=== PATIENT | female | born 1945 | race Hispanic/Latino ===

== ENCOUNTER 2017-10-25 16:15 | Emergency (ER) | payer OTHER ==
[2017-10-25] MEDS ORDERED: METOPROLOL TARTRATE 1 MG/ML 5ML VIAL IV ONE (16:42)
[2017-10-25 16:45] LABS: BASOPHILS % (AUTO) 0.5 % (0.0-5.0); EOSINOPHILS % (AUTO) 1.2 % (0.0-8.0); LYMPHOCYTES % (AUTO) 46.2 % (21.0-51.0); MEAN CORPUSCULAR HEMOGLOBIN 30.3 pg (27.0-33.0); MEAN CORPUSCULAR HGB CONC 33.7 g/dL (32.0-36.0); MEAN CORPUSCULAR VOLUME 89.9 fL (79-99); NEUTROPHILS % (AUTO) 44.1 % (40.0-77.0); PLATELET COUNT (AUTO) 219 K/uL (130-400); RED BLOOD CELL COUNT(AUTO) 4.45 MIL/uL (4.00-5.50); RED CELL DISTRIBUTION WIDTH 13.4 % (11.0-15.5); WHITE BLOOD COUNT (AUTO) 9.3 K/uL (4.8-10.8)
[2017-10-25 16:59] LABS: CREATININE 0.9 mg/dL (0.5-1.5); POTASSIUM 4.2 mmol/L (3.5-5.1)
[2017-10-25 17:00] LABS: INR 0.96 (0.85-1.15); PARTIAL THROMBOPLASTIN TIME 26.6 SEC (26.3-35.5); PROTHROMBIN TIME 10.1 SEC (9.6-11.6)
[2017-10-25 17:03] LABS: ALBUMIN 3.9 g/dL (3.5-5.0); BILIRUBIN,TOTAL 0.4 mg/dL (0.2-1.0); TOTAL PROTEIN, SERUM 7.6 g/dL (6.0-8.3)
[2017-10-25 18:29] LABS: APPEARANCE,URINE Clear (CLEAR); BILIRUBIN,URINE Negative (NEGATIVE); COLOR,URINE Yellow (YELLOW); GLUCOSE, URINE (UA) Negative (NEGATIVE); KETONES,URINE Negative (NEGATIVE); LEUKOCYTE ESTERASE ,URINE Small (NEGATIVE); NITRATE,URINE Negative (NEGATIVE); OCCULT BLOOD,URINE Negative (NEGATIVE); PROTEIN,URINE Negative (NEGATIVE); UROBILINOGEN,URINE 0.2 mg/dL (0.2-1.0)
[2017-10-25] MEDS ORDERED: SODIUM CHLORIDE 0.9% 500ML 500 ML IV ONE (18:29)
[2017-10-25 18:32] LABS: THYROID STIMULATING HORMONE 1.44 uIU/mL (0.36-3.74)
[2017-10-25 19:09] LABS: BACTERIA,URINE Rare /HPF (None Seen); RBC,URINE None Seen /HPF (0-1); SQUAMOUS EPITHELIAL CELL,UR 0-2 /HPF (0-2); WBC,URINE 0-1 /HPF (0-1)
== END 2017-10-25 19:19 | disposition home or self-care (01) ==
LOC: EDH 16:15
DX: R53.1 Weakness (principal); I10 Essential (primary) hypertension; E11.9 Type 2 diabetes mellitus without complications; E78.5 Hyperlipidemia, unspecified; Z88.2 Allergy status to sulfonamides; Z88.5 Allergy status to narcotic agent; Z98.890 Other specified postprocedural states
CPT/HCPCS: 36415; 71045; 80053; 81001; 82550; 84439; 84443; 84484; 85025; 85610; 85730; 93005; 96374; 99285; J3490; J7040

== ENCOUNTER 2017-11-05 04:30 | Emergency (ER) | payer OTHER ==
[2017-11-05] MEDS ORDERED: ONDANSETRON HCL 4 MG/2 ML VIAL ONE (06:09)
[2017-11-05] MEDS ORDERED: MORPHINE SULFATE 4 MG/1ML SYG ONE (06:10)
[2017-11-05 06:44] LABS: BASOPHILS % (AUTO) 0.5 % (0.0-5.0); EOSINOPHILS % (AUTO) 1.4 % (0.0-8.0); HEMATOCRIT 40.9 % (36-48); LYMPHOCYTES % (AUTO) 46.2 % (21.0-51.0); MEAN CORPUSCULAR HEMOGLOBIN 30.5 pg (27.0-33.0); MEAN CORPUSCULAR HGB CONC 33.6 g/dL (32.0-36.0); MEAN CORPUSCULAR VOLUME 90.9 fL (79-99); MONOCYTES % (AUTO) 8.9 % (3.0-13.0); PLATELET COUNT (AUTO) 208 K/uL (130-400); RED CELL DISTRIBUTION WIDTH 13.9 % (11.0-15.5)
[2017-11-05 06:57] LABS: CREATININE 0.7 mg/dL (0.5-1.5)
[2017-11-05 06:58] LABS: INR 0.9 (0.85-1.15); PARTIAL THROMBOPLASTIN TIME 25.4 SEC (26.3-35.5); PROTHROMBIN TIME 9.5 SEC (9.6-11.6)
[2017-11-05 07:04] LABS: ALBUMIN 3.2 g/dL (3.5-5.0); BILIRUBIN,TOTAL 0.4 mg/dL (0.2-1.0); TOTAL PROTEIN, SERUM 7.3 g/dL (6.0-8.3)
[2017-11-05] MEDS ORDERED: SODIUM CHLORIDE 0.9% 1000ML 3,000 ML IV ONE (07:16)
[2017-11-05 07:32] LABS: APPEARANCE,URINE Clear (CLEAR); BILIRUBIN,URINE Negative (NEGATIVE); COLOR,URINE Yellow (YELLOW); GLUCOSE, URINE (UA) Negative (NEGATIVE); KETONES,URINE Negative (NEGATIVE); LEUKOCYTE ESTERASE ,URINE Trace (NEGATIVE); NITRATE,URINE Negative (NEGATIVE); OCCULT BLOOD,URINE Negative (NEGATIVE); PH,URINE 5.5 (5.0-8.0); PROTEIN,URINE Negative (NEGATIVE); UROBILINOGEN,URINE 0.2 mg/dL (0.2-1.0)
[2017-11-05 08:10] LABS: BACTERIA,URINE Rare /HPF (None Seen); RBC,URINE 0-1 /HPF (0-1); SQUAMOUS EPITHELIAL CELL,UR Rare /HPF (0-2); WBC,URINE 0-1 /HPF (0-1)
== END 2017-11-05 09:07 | disposition home or self-care (01) ==
LOC: EDH 04:30
DX: M79.1 Myalgia (principal); R53.81 Other malaise; R53.83 Other fatigue; I10 Essential (primary) hypertension; E78.5 Hyperlipidemia, unspecified; E11.9 Type 2 diabetes mellitus without complications; R79.1 Abnormal coagulation profile; Z88.2 Allergy status to sulfonamides; Z88.6 Allergy status to analgesic agent; Z88.1 Allergy status to other antibiotic agents; Z98.890 Other specified postprocedural states
CPT/HCPCS: 36415; 71045; 80053; 81001; 82550; 83605; 83690; 84484; 85025; 85610; 85730; 93005; 96374; 96375; 99285; J2270; J2405; J7030

== ENCOUNTER → 2017-11-15 | Outpatient (CLI) | payer OTHER | END | disposition home or self-care (01) | LOC: RAH 07:42 | PROVIDERS: ATTEND Family Medicine | DX: M47.896 Other spondylosis, lumbar region (principal); M47.892 Other spondylosis, cervical region; M47.894 Other spondylosis, thoracic region; M48.07 Spinal stenosis, lumbosacral region; M25.78 Osteophyte, vertebrae; I70.0 Atherosclerosis of aorta; G89.29 Other chronic pain; R10.11 Right upper quadrant pain | CPT/HCPCS: 72040; 72072; 72100; 76700 ==

== ENCOUNTER → 2018-03-13 | Outpatient (CLI) | payer OTHER | END | disposition home or self-care (01) | LOC: RAH 07:38 | PROVIDERS: ATTEND Family Medicine | DX: M51.17 Intervertebral disc disorders with radiculopathy, lumbosacral region (principal); M48.061 Spinal stenosis, lumbar region without neurogenic claudication; M47.26 Other spondylosis with radiculopathy, lumbar region; M71.38 Other bursal cyst, other site | CPT/HCPCS: 72146; 72148 ==

== ENCOUNTER 2018-04-21 04:43 | Emergency (ER) | payer OTHER ==
[2018-04-21 05:15] LABS: BASOPHILS % (AUTO) 0.7 % (0.0-5.0); EOSINOPHILS % (AUTO) 1.1 % (0.0-8.0); HEMATOCRIT 38.4 % (36-48); LYMPHOCYTES % (AUTO) 48.6 % (21.0-51.0); MEAN CORPUSCULAR HGB CONC 33.6 g/dL (32.0-36.0); MEAN CORPUSCULAR VOLUME 92.4 fL (79-99); MONOCYTES % (AUTO) 8.2 % (3.0-13.0); NEUTROPHILS % (AUTO) 41.4 % (40.0-77.0); PLATELET COUNT (AUTO) 195 K/uL (130-400); RED BLOOD CELL COUNT(AUTO) 4.15 MIL/uL (4.00-5.50); RED CELL DISTRIBUTION WIDTH 13.5 % (11.0-15.5); WHITE BLOOD COUNT (AUTO) 9.5 K/uL (4.8-10.8)
[2018-04-21 05:20] LABS: CREATININE 0.8 mg/dL (0.5-1.5); POTASSIUM 4.3 mmol/L (3.5-5.1)
[2018-04-21 05:25] LABS: INR 0.93 (0.85-1.15); PARTIAL THROMBOPLASTIN TIME 27.7 SEC (26.3-35.5); PROTHROMBIN TIME 9.8 SEC (9.6-11.6)
[2018-04-21 05:30] LABS: ALBUMIN 3.2 g/dL (3.5-5.0); BILIRUBIN,TOTAL 0.4 mg/dL (0.2-1.0); TOTAL PROTEIN, SERUM 6.9 g/dL (6.0-8.3)
[2018-04-21] MEDS ORDERED: KETOROLAC TROMETHAMINE 15MG/ML ONE (05:47)
== END 2018-04-21 06:31 | disposition home or self-care (01) ==
LOC: EDH 04:43
DX: R07.89 Other chest pain (principal); M62.838 Other muscle spasm; M54.5 Low back pain; M54.6 Pain in thoracic spine; I10 Essential (primary) hypertension; E78.5 Hyperlipidemia, unspecified; E11.9 Type 2 diabetes mellitus without complications; G89.29 Other chronic pain; Z88.6 Allergy status to analgesic agent; Z88.1 Allergy status to other antibiotic agents; Z88.2 Allergy status to sulfonamides; Z79.899 Other long term (current) drug therapy; Z98.890 Other specified postprocedural states
CPT/HCPCS: 36415; 71045; 80053; 82550; 83874; 84484; 85025; 85610; 85730; 93005; 94761; 96374; 99284; J1885

== ENCOUNTER → 2018-05-29 | Outpatient (CLI) | payer OTHER | END | disposition home or self-care (01) | LOC: RAH 07:47 | PROVIDERS: ATTEND Family Medicine | DX: Z12.31 Encounter for screening mammogram for malignant neoplasm of breast (principal) | CPT/HCPCS: 77067 ==

== ENCOUNTER → 2019-01-02 | Outpatient (CLI) | payer OTHER | END | disposition home or self-care (01) | LOC: OIH 10:11 | PROVIDERS: ATTEND Family Medicine | DX: M19.012 Primary osteoarthritis, left shoulder (principal); M16.11 Unilateral primary osteoarthritis, right hip; M89.8X5 Other specified disorders of bone, thigh; Z98.890 Other specified postprocedural states | CPT/HCPCS: 73030; 73502; 73552 ==

== ENCOUNTER 2019-02-02 10:00 | Emergency (ER) | payer OTHER ==
[2019-02-02 10:20] LABS: BASOPHILS % (AUTO) 0.4 % (0.0-5.0); EOSINOPHILS % (AUTO) 1.6 % (0.0-8.0); HEMATOCRIT 39.3 % (36-48); LYMPHOCYTES % (AUTO) 51.8 % (21.0-51.0); MEAN CORPUSCULAR HEMOGLOBIN 30.3 pg (27.0-33.0); MEAN CORPUSCULAR HGB CONC 33.6 g/dL (32.0-36.0); MEAN CORPUSCULAR VOLUME 90.4 fL (79-99); MONOCYTES % (AUTO) 7.9 % (3.0-13.0); NEUTROPHILS % (AUTO) 38.3 % (40.0-77.0); PLATELET COUNT (AUTO) 177 K/uL (130-400); RED BLOOD CELL COUNT(AUTO) 4.35 MIL/uL (4.00-5.50); RED CELL DISTRIBUTION WIDTH 14.1 % (11.0-15.5); WHITE BLOOD COUNT (AUTO) 7.9 K/uL (4.8-10.8)
[2019-02-02 10:26] LABS: CREATININE 0.9 mg/dL (0.5-1.5); POTASSIUM 4.3 mmol/L (3.5-5.1)
[2019-02-02 10:31] LABS: ALBUMIN 3.3 g/dL (3.5-5.0); BILIRUBIN,TOTAL 0.6 mg/dL (0.2-1.0); TOTAL PROTEIN, SERUM 7.2 g/dL (6.0-8.3)
[2019-02-02 10:33] LABS: INR 1.02 (0.85-1.15); PARTIAL THROMBOPLASTIN TIME 29.9 SEC (26.3-35.5); PROTHROMBIN TIME 10.7 SEC (9.6-11.6)
[2019-02-02] MEDS ORDERED: KETOROLAC TROMETHAMINE 15MG/ML ONE (10:40)
[2019-02-02] MEDS ORDERED: ORPHENADRINE CITRATE 30 MG/ML ML ONE (10:40)
== END 2019-02-02 13:50 | disposition home or self-care (01) ==
LOC: EDH 10:00
DX: M62.838 Other muscle spasm (principal); R07.89 Other chest pain; I10 Essential (primary) hypertension; E11.9 Type 2 diabetes mellitus without complications; E78.5 Hyperlipidemia, unspecified; G89.29 Other chronic pain; Z88.2 Allergy status to sulfonamides; Z88.1 Allergy status to other antibiotic agents; Z88.5 Allergy status to narcotic agent
CPT/HCPCS: 36415; 71045; 80053; 82550; 84484 ×2; 85025; 85610; 85730; 93005 ×2; 96374; 96375; 99285; J1885; J2360

== ENCOUNTER 2019-07-11 07:41 | Emergency (ER) | payer OTHER ==
[2019-07-11] MEDS ORDERED: KETOROLAC TROMETHAMINE 30MG/ML ONE (08:33)
[2019-07-11] MEDS ORDERED: DIAZEPAM 5 MG TABLET ONE (08:33)
== END 2019-07-11 09:27 | disposition home or self-care (01) ==
LOC: EDH 07:41
DX: G57.91 Unspecified mononeuropathy of right lower limb (principal); G89.29 Other chronic pain; E11.9 Type 2 diabetes mellitus without complications; E78.5 Hyperlipidemia, unspecified; I10 Essential (primary) hypertension; Z88.6 Allergy status to analgesic agent; Z88.2 Allergy status to sulfonamides; Z88.1 Allergy status to other antibiotic agents
CPT/HCPCS: 73502; 96372; 99283; J1885

== ENCOUNTER → 2019-08-16 | Outpatient (CLI) | payer OTHER ==
[~2019-08-16] MED LIST: GADODIAMIDE 10 MMOL/20 ML VIAL IV ONE
== END | disposition home or self-care (01) ==
LOC: RAH 12:26
PROVIDERS: ATTEND Family Medicine
DX: M25.551 Pain in right hip (principal); M79.651 Pain in right thigh
CPT/HCPCS: 73720; A9579

== ENCOUNTER → 2019-10-23 | Outpatient (CLI) | payer OTHER | END | disposition home or self-care (01) | LOC: OIH 08:28 | PROVIDERS: ATTEND Family Medicine | DX: M47.817 Spondylosis without myelopathy or radiculopathy, lumbosacral region (principal); M48.07 Spinal stenosis, lumbosacral region | CPT/HCPCS: 72100 ==

== ENCOUNTER 2019-12-23 02:35 | Emergency (ER) | payer OTHER ==
[2019-12-23 03:09] LABS: BASOPHILS % (AUTO) 0.3 % (0.0-5.0); LYMPHOCYTES % (AUTO) 43.7 % (21.0-51.0); MEAN CORPUSCULAR HEMOGLOBIN 30.5 pg (27.0-33.0); MEAN CORPUSCULAR HGB CONC 33.7 g/dL (32.0-36.0); MEAN CORPUSCULAR VOLUME 90.7 fL (79-99); MONOCYTES % (AUTO) 8.6 % (3.0-13.0); NEUTROPHILS % (AUTO) 46.1 % (40.0-77.0); PLATELET COUNT (AUTO) 186 K/uL (130-400); RED BLOOD CELL COUNT(AUTO) 4.19 MIL/uL (4.00-5.50); RED CELL DISTRIBUTION WIDTH 12.5 % (11.0-15.5); WHITE BLOOD COUNT (AUTO) 9.3 K/uL (4.8-10.8)
[2019-12-23 03:22] LABS: CREATININE 0.9 mg/dL (0.5-1.5); POTASSIUM 3.4 mmol/L (3.5-5.1)
[2019-12-23 03:26] LABS: ALBUMIN 3.6 g/dL (3.5-5.0); BILIRUBIN,TOTAL 0.9 mg/dL (0.2-1.0); TOTAL PROTEIN, SERUM 7.4 g/dL (6.0-8.3)
[2019-12-23 03:48] LABS: INR 0.96 (0.85-1.15); PARTIAL THROMBOPLASTIN TIME 28.5 SEC (26.3-35.5); PROTHROMBIN TIME 10.4 SEC (9.6-11.6)
== END 2019-12-23 04:28 | disposition home or self-care (01) ==
LOC: EDH 02:35
DX: E87.6 Hypokalemia (principal); I10 Essential (primary) hypertension; G89.29 Other chronic pain; M54.9 Dorsalgia, unspecified; E11.9 Type 2 diabetes mellitus without complications; E78.5 Hyperlipidemia, unspecified; Z88.2 Allergy status to sulfonamides; Z88.1 Allergy status to other antibiotic agents; Z88.6 Allergy status to analgesic agent; Z98.890 Other specified postprocedural states
CPT/HCPCS: 36415; 80053; 82550; 84484; 85025; 85610; 85730; 93005

== ENCOUNTER → 2020-02-09 | Outpatient (CLI) | payer OTHER | END | disposition home or self-care (01) | LOC: RAH 10:59 | PROVIDERS: ATTEND Family Medicine | DX: R22.1 Localized swelling, mass and lump, neck (principal) | CPT/HCPCS: 76536 ==

== ENCOUNTER 2020-08-04 04:01 | Emergency (ER) | payer OTHER ==
[2020-08-04] MEDS ORDERED: KETOROLAC TROMETHAMINE 30MG/ML ONE (05:35)
[2020-08-04] MEDS ORDERED: TRAMADOL HCL 50 MG TABLET ONE (05:36)
== END 2020-08-04 07:08 | disposition home or self-care (01) ==
LOC: EDH 04:01
DX: M54.12 Radiculopathy, cervical region (principal); I10 Essential (primary) hypertension; E11.9 Type 2 diabetes mellitus without complications; E78.5 Hyperlipidemia, unspecified; G89.29 Other chronic pain; M54.9 Dorsalgia, unspecified; Z88.2 Allergy status to sulfonamides; Z88.1 Allergy status to other antibiotic agents; Z88.8 Allergy status to other drugs, medicaments and biological substances
CPT/HCPCS: 93005; 96372; 99283; J1885

== ENCOUNTER 2020-11-30 09:58 | Emergency (ER) | payer OTHER ==
[~2020-11-30] VITALS: Ht 154.9 cm; Wt 98.0 kg
[2020-11-30 10:31] LABS: BASOPHILS % (AUTO) 0.2 % (0.0-5.0); EOSINOPHILS % (AUTO) 1.5 % (0.0-8.0); HEMATOCRIT 40.9 % (36-48); LYMPHOCYTES % (AUTO) 45.6 % (21.0-51.0); MEAN CORPUSCULAR HEMOGLOBIN 29.9 pg (27.0-33.0); MEAN CORPUSCULAR HGB CONC 31.5 g/dL (32.0-36.0); MEAN CORPUSCULAR VOLUME 94.9 fL (79-99); MONOCYTES % (AUTO) 8.6 % (3.0-13.0); NEUTROPHILS % (AUTO) 43.9 % (40.0-77.0); PLATELET COUNT (AUTO) 197 K/uL (130-400); RED BLOOD CELL COUNT(AUTO) 4.31 MIL/uL (4.00-5.50); RED CELL DISTRIBUTION WIDTH 12.5 % (11.0-15.5); WHITE BLOOD COUNT (AUTO) 9.5 K/uL (4.8-10.8)
[2020-11-30 10:37] LABS: APPEARANCE,URINE Cloudy (CLEAR); BILIRUBIN,URINE Negative (NEGATIVE); COLOR,URINE Yellow (YELLOW); GLUCOSE, URINE (UA) Negative (NEGATIVE); KETONES,URINE Negative (NEGATIVE); LEUKOCYTE ESTERASE ,URINE Large (NEGATIVE); NITRATE,URINE Negative (NEGATIVE); OCCULT BLOOD,URINE Moderate (NEGATIVE); PH,URINE 5.5 (5.0-8.0); PROTEIN,URINE POS 1+ mg/dL (NEGATIVE)
[2020-11-30 10:48] LABS: BACTERIA,URINE Few /HPF (None Seen)
[2020-11-30 10:59] LABS: ALBUMIN 3.5 g/dL (3.5-5.0); BILIRUBIN,TOTAL 0.5 mg/dL (0.2-1.0); TOTAL PROTEIN, SERUM 7.4 g/dL (6.0-8.3)
[2020-11-30] MEDS ORDERED: HYDROMORPHONE 1 MG INJ IVP SCH (12:00)
[2020-11-30] MEDS ORDERED: ONDANSETRON 4MG INJ IVP SCH (12:00)
[2020-11-30] MEDS ORDERED: 0.9%NACL 1000ML 1,000 ML IV SCH (12:00)
[2020-11-30] MEDS ORDERED: DICY20TA2 PO (12:31)
[2020-11-30] MEDS ORDERED: ONDA22I PO (12:31)
[2020-11-30] MEDS ORDERED: HYDROCODONE/ACETAMINOPHEN 5/325 MG TAB PO ONE (13:30)
== END 2020-11-30 13:12 | disposition home or self-care (01) ==
LOC: EDH 09:58
DX: K80.20 Calculus of gallbladder without cholecystitis without obstruction (principal); E11.9 Type 2 diabetes mellitus without complications; I10 Essential (primary) hypertension; E78.00 Pure hypercholesterolemia, unspecified; Z88.1 Allergy status to other antibiotic agents; Z88.5 Allergy status to narcotic agent; Z88.2 Allergy status to sulfonamides; Z79.899 Other long term (current) drug therapy; Z88.8 Allergy status to other drugs, medicaments and biological substances; Z98.890 Other specified postprocedural states
CPT/HCPCS: 36415; 76705; 80053; 81001; 82150; 83690; 85025; 87088; 93005

== ENCOUNTER 2021-03-07 17:01 | Emergency (ER) | payer OTHER ==
[~2021-03-07] VITALS: Ht 154.9 cm; Wt 94.8 kg
[~2021-03-07 17:01] MED LIST changes: +DICY20TA2 PO; -GADODIAMIDE 10 MMOL/20 ML VIAL IV ONE; +ONDA22I PO
[2021-03-07 17:02] VITALS: BP 148/72
[2021-03-07 19:34] LABS: APPEARANCE,URINE Clear (CLEAR); BILIRUBIN,URINE Negative (NEGATIVE); COLOR,URINE Yellow (YELLOW); GLUCOSE, URINE (UA) Negative (NEGATIVE); KETONES,URINE Negative (NEGATIVE); LEUKOCYTE ESTERASE ,URINE Small (NEGATIVE); NITRATE,URINE Negative (NEGATIVE); OCCULT BLOOD,URINE Negative (NEGATIVE); PROTEIN,URINE Negative (NEGATIVE); UROBILINOGEN,URINE 0.2 mg/dL (0.2-1.0)
[2021-03-07] MEDS ORDERED: ORPH-43 PO (19:50)
[2021-03-07] MEDS ORDERED: MELO7.5T12 PO (19:50)
[2021-03-07] MEDS ORDERED: LIDOP TP (19:50)
[2021-03-07 19:51] LABS: RBC,URINE 0-1 /HPF (0-1)
[2021-03-07 19:52] LABS: BACTERIA,URINE Rare /HPF (None Seen); SQUAMOUS EPITHELIAL CELL,UR Rare /HPF (0-2); URIC ACID CRYSTALS,URINE Rare /LPF (None Seen)
[2021-03-07] MEDS ORDERED: KETOROLAC 30MG VIAL (30MG/ML) IM ONE (20:00)
== END 2021-03-07 20:07 | disposition home or self-care (01) ==
LOC: EDH 17:01
DX: M62.830 Muscle spasm of back (principal); M79.601 Pain in right arm; E11.9 Type 2 diabetes mellitus without complications; E78.00 Pure hypercholesterolemia, unspecified; E78.5 Hyperlipidemia, unspecified; I10 Essential (primary) hypertension; Z88.1 Allergy status to other antibiotic agents; Z88.2 Allergy status to sulfonamides; Z88.5 Allergy status to narcotic agent; Z88.8 Allergy status to other drugs, medicaments and biological substances; Z79.1 Long term (current) use of non-steroidal anti-inflammatories (NSAID); Z79.899 Other long term (current) drug therapy
CPT/HCPCS: 81001; 96372; 99283; J1885

== ENCOUNTER → 2021-09-16 | Outpatient (CLI) | payer OTHER ==
[~2021-09-16] MED LIST changes: +LIDOP TP; +MELO7.5T12 PO; +ORPH-43 PO; +REGADENOSON 0.4 MG/5 ML PF SYG IVP ONE; +REGADENOSON 0.4 MG/5 ML PF SYG IVP SCH
== END | disposition home or self-care (01) ==
LOC: RAH 08:53
PROVIDERS: ATTEND Family Medicine
DX: I11.0 Hypertensive heart disease with heart failure (principal); I50.9 Heart failure, unspecified; I20.9 Angina pectoris, unspecified; I44.7 Left bundle-branch block, unspecified
CPT/HCPCS: 78452; 93017; 96374; A9500 ×2; J2785

== ENCOUNTER → 2021-09-30 | Outpatient (CLI) | payer OTHER ==
[~2021-09-30] MED LIST changes: -REGADENOSON 0.4 MG/5 ML PF SYG IVP ONE; -REGADENOSON 0.4 MG/5 ML PF SYG IVP SCH
== END ==
LOC: RAH 12:28
PROVIDERS: ATTEND Family Medicine
DX: I31.3 Pericardial effusion (noninflammatory) (principal); E11.9 Type 2 diabetes mellitus without complications; E66.9 Obesity, unspecified; I11.0 Hypertensive heart disease with heart failure; I20.9 Angina pectoris, unspecified; I50.9 Heart failure, unspecified
CPT/HCPCS: 93306

== ENCOUNTER → 2021-10-17 | Outpatient (CLI) | payer OTHER | END | disposition home or self-care (01) | LOC: RAH 11:22 | PROVIDERS: ATTEND Family Medicine | DX: Z12.31 Encounter for screening mammogram for malignant neoplasm of breast (principal) | CPT/HCPCS: 77067 ==

== ENCOUNTER → 2022-07-11 | Outpatient (CLI) | payer OTHER | END | disposition home or self-care (01) | LOC: RAH 09:47 | PROVIDERS: ATTEND Family Medicine | DX: N64.89 Other specified disorders of breast (principal); N64.4 Mastodynia | CPT/HCPCS: 77066 ==

== ENCOUNTER 2022-12-28 05:32 | Emergency (ER) | payer OTHER ==
[~2022-12-28] VITALS: Ht 154.9 cm; Wt 96.2 kg
[~2022-12-28 05:32] MED LIST changes: -ORPH-43 PO; +ORPH100T4 PO
[2022-12-28 06:42] LABS: BASOPHILS # (AUTO) 0.02 K/uL (0.00-0.20); BASOPHILS % (AUTO) 0.3 % (0.0-5.0); EOSINOPHILS # (AUTO) 0.08 K/uL (0.00-0.70); EOSINOPHILS % (AUTO) 1.2 % (0.0-8.0); HEMATOCRIT 40.5 % (36-48); IMMATURE GRANULOCYTE ABSOLUTE 0.01 K/uL (0-1); LYMPHOCYTES # (AUTO) 2.9 K/uL (1.0-4.8); LYMPHOCYTES % (AUTO) 41.4 % (21.0-51.0); MEAN CORPUSCULAR HEMOGLOBIN 29.7 pg (27.0-33.0); MEAN CORPUSCULAR HGB CONC 32.6 g/dL (32.0-36.0); MEAN CORPUSCULAR VOLUME 91.2 fL (79-99); MONOCYTES # (AUTO) 0.7 K/uL (0.1-1.0); MONOCYTES % (AUTO) 9.4 % (3.0-13.0); NEUTROPHILS # (AUTO) 3.3 K/uL (1.8-7.7); NEUTROPHILS % (AUTO) 47.6 % (40.0-77.0); PLATELET COUNT (AUTO) 188 K/uL (130-400); RED BLOOD CELL COUNT(AUTO) 4.44 MIL/uL (4.00-5.50); RED CELL DISTRIBUTION WIDTH 12.8 % (11.0-15.5); WHITE BLOOD COUNT (AUTO) 6.9 K/uL (4.8-10.8)
[2022-12-28 06:54] LABS: PARTIAL THROMBOPLASTIN TIME 27.6 SEC (26.3-35.5)
[2022-12-28 07:02] LABS: ALBUMIN 3.5 g/dL (3.5-5.0); BILIRUBIN,TOTAL 0.4 mg/dL (0.2-1.0); CREATININE 0.9 mg/dL (0.5-1.5); MAGNESIUM 1.6 mg/dL (1.80-2.40); POTASSIUM 3.7 mmol/L (3.5-5.1); TOTAL PROTEIN, SERUM 6.7 g/dL (6.0-8.3)
[2022-12-28 07:08] LABS: B-TYPE NATRIURETIC PEPTIDE 33 pg/mL (0-100)
[2022-12-28 07:18] LABS: APPEARANCE,URINE CLEAR (CLEAR); BILIRUBIN,URINE NEGATIVE (NEGATIVE); COLOR,URINE COLORLESS (YELLOW); GLUCOSE, URINE (UA) NEGATIVE (NEGATIVE); KETONES,URINE NEGATIVE (NEGATIVE); LEUKOCYTE ESTERASE ,URINE 500 Leu/uL (NEGATIVE); NITRATE,URINE NEGATIVE (NEGATIVE); OCCULT BLOOD,URINE NEGATIVE (NEGATIVE); PROTEIN,URINE NEGATIVE (NEGATIVE); UROBILINOGEN,URINE 0.2 mg/dL (0.2-1.0)
[2022-12-28 07:19] LABS: ADD UA MICROSCOPIC YES
[2022-12-28 07:20] LABS: MUCUS,URINE RARE LPF (None Seen); SQUAMOUS EPITHELIAL CELL,UR RARE /HPF (0-2)
[2022-12-28] MEDS ORDERED: IOHEXOL 350 MG/ML 100ML INFUS..BTL IV ONE ×2 (09:04→09:46)
[2022-12-28 22:50] VITALS: BP 158/57; PULSE 85; RESP 18; O2SAT 96
== END 2022-12-28 23:03 | disposition home or self-care (01) ==
LOC: EDH 05:32
DX: R00.2 Palpitations (principal); M54.6 Pain in thoracic spine; I10 Essential (primary) hypertension; E78.00 Pure hypercholesterolemia, unspecified; E11.9 Type 2 diabetes mellitus without complications; Z88.2 Allergy status to sulfonamides; Z88.5 Allergy status to narcotic agent; Z88.8 Allergy status to other drugs, medicaments and biological substances
CPT/HCPCS: 99285; 78582; 71045; 82550; 83735; 84484; 80053; 83880; 85025; 85378; 85730; 87088; 81001; 36415; 93005; Q9967; A9540; A9558; 71270

== ENCOUNTER 2023-06-02 05:30 | Observation (INO) | payer OTHER ==
[~2023-06-02] VITALS: Ht 154.9 cm; Wt 109.0 kg
[2023-06-02] MEDS ORDERED: ASPIRIN 325MG TAB PO ONE (06:00)
[2023-06-02] MEDS ORDERED: NITROGLYCERIN 0.4 MG SL TAB SL PRN ×2 (06:00→10:30)
[2023-06-02 06:04] LABS: BASOPHILS # (AUTO) 0.03 K/uL (0.00-0.20); BASOPHILS % (AUTO) 0.3 % (0.0-5.0); EOSINOPHILS # (AUTO) 0.11 K/uL (0.00-0.70); EOSINOPHILS % (AUTO) 0.9 % (0.0-8.0); HEMATOCRIT 38.9 % (36-48); IMMATURE GRANULOCYTE ABSOLUTE 0.02 K/uL (0-1); LYMPHOCYTES % (AUTO) 50.7 % (21.0-51.0); MEAN CORPUSCULAR HEMOGLOBIN 29.6 pg (27.0-33.0); MEAN CORPUSCULAR HGB CONC 32.4 g/dL (32.0-36.0); MEAN CORPUSCULAR VOLUME 91.5 fL (79-99); MONOCYTES % (AUTO) 8.3 % (3.0-13.0); NEUTROPHILS # (AUTO) 4.7 K/uL (1.8-7.7); NEUTROPHILS % (AUTO) 39.6 % (40.0-77.0); PLATELET COUNT (AUTO) 207 K/uL (130-400); RED BLOOD CELL COUNT(AUTO) 4.25 MIL/uL (4.00-5.50); WHITE BLOOD COUNT (AUTO) 11.8 K/uL (4.8-10.8)
[2023-06-02 06:06] LABS: APPEARANCE,URINE CLEAR (CLEAR); BILIRUBIN,URINE NEGATIVE (NEGATIVE); COLOR,URINE LIGHT-YELLOW (YELLOW); GLUCOSE, URINE (UA) NEGATIVE (NEGATIVE); KETONES,URINE NEGATIVE (NEGATIVE); LEUKOCYTE ESTERASE ,URINE 75 Leu/uL (NEGATIVE); NITRATE,URINE NEGATIVE (NEGATIVE); PROTEIN,URINE NEGATIVE (NEGATIVE); UROBILINOGEN,URINE 0.2 mg/dL (0.2-1.0)
[2023-06-02 06:19] LABS: POTASSIUM 3.5 mmol/L (3.5-5.1)
[2023-06-02 06:21] LABS: ADD UA MICROSCOPIC YES
[2023-06-02 06:22] LABS: ALBUMIN 3.6 g/dL (3.5-5.0); BILIRUBIN,TOTAL 0.5 mg/dL (0.2-1.0); MAGNESIUM 1.8 mg/dL (1.80-2.40); TOTAL PROTEIN, SERUM 7.6 g/dL (6.0-8.3)
[2023-06-02 06:43] LABS: B-TYPE NATRIURETIC PEPTIDE 34 pg/mL (0-100)
[2023-06-02 06:44] LABS: BACTERIA,URINE RARE /HPF (None Seen); SQUAMOUS EPITHELIAL CELL,UR MOD /HPF (0-2)
[2023-06-02] MEDS ORDERED: ACETAMINOPHEN 325 MG TAB PO PRN (10:00)
[2023-06-02] MEDS ORDERED: ACETAMINOPHEN 650 MG SUPPOSITORY RC PRN (10:00)
[2023-06-02] MEDS ORDERED: LABETALOL HCL 100 MG TABLET PO SCH (10:00)
[2023-06-02] MEDS ORDERED: ONDANSETRON 4MG INJ IVP PRN (10:00)
[2023-06-02] MEDS ORDERED: CLONIDINE HCL 0.1 MG TABLET PO PRN ×2 (10:00)
[2023-06-02] MEDS ORDERED: LACTULOSE 20 GM/30 ML UDCUP PO PRN (10:00)
[2023-06-02] MEDS ORDERED: METO-391 PO (10:17)
[2023-06-02] MEDS ORDERED: RIVA20TA PO (10:17)
[2023-06-02] MEDS ORDERED: LOSA50TA64 PO (10:17)
[2023-06-02] MEDS ORDERED: HYDR12.54 PO (10:17)
[2023-06-02] MEDS ORDERED: ASPI-1197 PO (10:17)
[2023-06-02] MEDS ORDERED: ROSU40TA21 PO (10:17)
[2023-06-02] MEDS ORDERED: METF-444 PO (10:17)
[2023-06-02] MEDS: INSULIN HUMULIN R 100 UNIT/ML 3ML SQ SCH ×3 (11:30→21:00)
[2023-06-02 15:06] LABS: SARS-CoV-2, RNA, NAAT NEGATIVE SARS CoV-2 (NEGATIVE)
[2023-06-02 15:12] LABS: INFLUENZA TYPE A Negative For Type A (NEGATIVE); INFLUENZA TYPE B Negative For Type B (NEGATIVE)
[2023-06-02] MEDS ORDERED: MAGNESIUM 2GM PREMIX 50ML 50 ML IV SCH (16:00)
[2023-06-02] MEDS ORDERED: COMPOUND PO MISCELLANEOUS 1 EACH MISC MISC PRN (16:00)
[2023-06-02] MEDS ORDERED: CEFTRIAXONE 1G VIAL IVPB SCH (16:00)
[2023-06-02] MEDS ORDERED: PHARMACY COMMUNICATION MISC SCH (16:00)
[2023-06-02] MEDS ORDERED: LIDO 2% VISC 30ML+MAG/AL/SIMETH 30ML+DICYCLOMINE 20MG 10ML PO ONE ×6 (16:00→17:00)
[2023-06-02 17:08] VITALS: O2SAT 95
[2023-06-02] MEDS ORDERED: LABETALOL 20MG SYG IV PRN (17:30)
[2023-06-02 18:37] VITALS: BP 129/67; PULSE 86; RESP 18
[2023-06-02] MEDS ORDERED: METOPROLOL TARTRATE 25 MG TAB PO SCH (21:00)
[2023-06-02] MEDS ORDERED: SIMVASTATIN 20 MG TABLET PO SCH (21:00)
[2023-06-03] VITALS: BP 124/44; PULSE 78; RESP 16
[2023-06-03 04:00] VITALS: BP 121/53; PULSE 75; RESP 16
[2023-06-03 04:09] LABS: BASOPHILS # (AUTO) 0.01 K/uL (0.00-0.20); BASOPHILS % (AUTO) 0.2 % (0.0-5.0); EOSINOPHILS # (AUTO) 0.06 K/uL (0.00-0.70); EOSINOPHILS % (AUTO) 0.9 % (0.0-8.0); HEMATOCRIT 36.7 % (36-48); IMMATURE GRANULOCYTE ABSOLUTE 0.02 K/uL (0-1); LYMPHOCYTES # (AUTO) 2.6 K/uL (1.0-4.8); LYMPHOCYTES % (AUTO) 41.1 % (21.0-51.0); MEAN CORPUSCULAR HEMOGLOBIN 29.6 pg (27.0-33.0); MEAN CORPUSCULAR HGB CONC 32.4 g/dL (32.0-36.0); MEAN CORPUSCULAR VOLUME 91.3 fL (79-99); MONOCYTES # (AUTO) 0.6 K/uL (0.1-1.0); MONOCYTES % (AUTO) 9.6 % (3.0-13.0); NEUTROPHILS # (AUTO) 3.1 K/uL (1.8-7.7); NEUTROPHILS % (AUTO) 47.9 % (40.0-77.0); PLATELET COUNT (AUTO) 180 K/uL (130-400); RED BLOOD CELL COUNT(AUTO) 4.02 MIL/uL (4.00-5.50); WHITE BLOOD COUNT (AUTO) 6.4 K/uL (4.8-10.8)
[2023-06-03 04:29] LABS: CREATININE 0.9 mg/dL (0.5-1.5); MAGNESIUM 2.4 mg/dL (1.80-2.40); PHOSPHORUS 3.8 mg/dL (2.5-4.9); POTASSIUM 3.6 mmol/L (3.5-5.1)
[2023-06-03] MEDS ORDERED: KCL 20 MEQ ERTAB PO PRN (06:30)
[2023-06-03] MEDS ORDERED: POTASSIUM CHLORIDE 10% ELIXIR 20 MEQ/15 ML UDCUP PO PRN (06:30)
[2023-06-03] MEDS ORDERED: POTASSIUM CHLORIDE 10MEQ/100ML 100 ML IV PRN (06:30)
[2023-06-03] MEDS: INSULIN HUMULIN R 100 UNIT/ML 3ML SQ SCH (06:39)
[2023-06-03 08:00] VITALS: BP 108/66; PULSE 71; RESP 18
[2023-06-03] MEDS ORDERED: ENOXAPARIN SODIUM 40 MG/0.4 ML SYRINGE SQ SCH (09:00)
[2023-06-03] MEDS ORDERED: PANTOPRAZOLE 40 MG TAB DR PO SCH (09:00)
[2023-06-03] MEDS ORDERED: HYDROCHLOROTHIAZIDE 25 MG TABLET PO SCH (09:00)
[2023-06-03] MEDS ORDERED: ASCORBIC ACID 500 MG TAB PO SCH (09:00)
[2023-06-03] MEDS ORDERED: RIVAROXABAN 20 MG TABLET PO SCH (09:00)
[2023-06-03] MEDS ORDERED: POLYETHYLENE GLYCOL 3350 17 GM POWD.PACK PO SCH (09:00)
[2023-06-03] MEDS ORDERED: METOPROLOL SUCCINATE 50 MG TAB.SR.24H PO SCH (09:00)
[2023-06-03] MEDS ORDERED: ASPIRIN 81MG CHEW TAB PO SCH ×2 (09:00)
[2023-06-03] MEDS ORDERED: LOSARTAN 50 MG TABLET PO SCH (09:00)
[2023-06-03] MEDS ORDERED: LISINOPRIL 10 MG TABLET PO SCH (09:00)
[2023-06-03 12:00] VITALS: BP 125/48; PULSE 89; RESP 18
== END 2023-06-03 13:05 | disposition home or self-care (01) ==
LOC: EDH 05:30 → EDHIP 09:38 → 3BH 18:37
PROVIDERS: ADMIT Internal Medicine; ATTEND Internal Medicine
DX: E11.9 Type 2 diabetes mellitus without complications (principal); Z20.822 Contact with and (suspected) exposure to COVID-19; I48.91 Unspecified atrial fibrillation; K21.9 Gastro-esophageal reflux disease without esophagitis; I10 Essential (primary) hypertension; E78.5 Hyperlipidemia, unspecified; E66.01 Morbid (severe) obesity due to excess calories; I20.0 Unstable angina; R35.1 Nocturia; Z88.1 Allergy status to other antibiotic agents; Z88.5 Allergy status to narcotic agent; Z68.42 Body mass index [BMI] 45.0-49.9, adult; Z79.01 Long term (current) use of anticoagulants
CPT/HCPCS: 96365; 96375; 96366; 99285; 82550; 83735 ×2; 84484 ×3; 80061; 80053; 83880; 83690; 85025 ×2; 85378 ×2; 87088; 87804 ×2; 82948 ×5; 81001; 36415 ×2; 87635; 71045; 76705; 93306; 93005; 84100; 80048; G0378 ×26; J3475

== ENCOUNTER 2023-11-03 21:08 | Emergency (ER) | payer OTHER ==
[~2023-11-03] VITALS: Ht 154.9 cm; Wt 87.5 kg
[~2023-11-03 21:08] MED LIST changes: +ASPI-1197 PO; +CEFU500T67 PO; -DICY20TA2 PO; +HYDR-4060 PO; +HYDR12.54 PO; -LIDOP TP; +LOSA50TA64 PO; -MELO7.5T12 PO; +METF-444 PO; +METO-391 PO; -ONDA22I PO; -ORPH100T4 PO; +RIVA20TA PO; +ROSU40TA70 PO
[2023-11-03] MEDS: ACETAMINOPHEN 325 MG TAB PO ONE (21:55)
[2023-11-03 22:18] LABS: BASOPHILS # (AUTO) 0.02 K/uL (0.00-0.20); BASOPHILS % (AUTO) 0.3 % (0.0-5.0); EOSINOPHILS # (AUTO) 0.06 K/uL (0.00-0.70); EOSINOPHILS % (AUTO) 0.8 % (0.0-8.0); HEMATOCRIT 36.8 % (36-48); IMMATURE GRANULOCYTE ABSOLUTE 0.03 K/uL (0-1); LYMPHOCYTES # (AUTO) 2.9 K/uL (1.0-4.8); LYMPHOCYTES % (AUTO) 36.7 % (21.0-51.0); MEAN CORPUSCULAR HEMOGLOBIN 29.7 pg (27.0-33.0); MEAN CORPUSCULAR HGB CONC 33.4 g/dL (32.0-36.0); MEAN CORPUSCULAR VOLUME 88.9 fL (79-99); MONOCYTES # (AUTO) 0.7 K/uL (0.1-1.0); MONOCYTES % (AUTO) 9.5 % (3.0-13.0); NEUTROPHILS # (AUTO) 4.1 K/uL (1.8-7.7); NEUTROPHILS % (AUTO) 52.3 % (40.0-77.0); PLATELET COUNT (AUTO) 195 K/uL (130-400); RED BLOOD CELL COUNT(AUTO) 4.14 MIL/uL (4.00-5.50); RED CELL DISTRIBUTION WIDTH 13.2 % (11.0-15.5); WHITE BLOOD COUNT (AUTO) 7.8 K/uL (4.8-10.8)
[2023-11-03 23:32] VITALS: BP 164/63; PULSE 68; RESP 18; O2SAT 95
[2023-11-03] MEDS ORDERED: AMOX-426 PO (23:50)
== END 2023-11-04 00:16 | disposition home or self-care (01) ==
LOC: EDH 21:08
DX: M25.512 Pain in left shoulder (principal); I88.9 Nonspecific lymphadenitis, unspecified; R07.89 Other chest pain; I10 Essential (primary) hypertension; E11.9 Type 2 diabetes mellitus without complications; E78.00 Pure hypercholesterolemia, unspecified; Z79.82 Long term (current) use of aspirin; Z79.84 Long term (current) use of oral hypoglycemic drugs; Z79.899 Other long term (current) drug therapy; Z98.890 Other specified postprocedural states; Z88.2 Allergy status to sulfonamides; Z79.01 Long term (current) use of anticoagulants; Z88.5 Allergy status to narcotic agent; Z88.8 Allergy status to other drugs, medicaments and biological substances
CPT/HCPCS: 36415; 71045; 76604; 85025; 93005

== ENCOUNTER 2024-03-15 20:38 | Observation (INO) | payer OTHER ==
[~2024-03-15] VITALS: Ht 154.9 cm; Wt 85.5 kg
[~2024-03-15 20:38] MED LIST changes: +AMOX-426 PO; -ROSU40TA70 PO; +ROSU40TA88 PO
[2024-03-15 21:15] LABS: BASOPHILS # (AUTO) 0.02 K/uL (0.00-0.20); BASOPHILS % (AUTO) 0.2 % (0.0-5.0); EOSINOPHILS # (AUTO) 0.07 K/uL (0.00-0.70); EOSINOPHILS % (AUTO) 0.7 % (0.0-8.0); IMMATURE GRANULOCYTE ABSOLUTE 0.04 K/uL (0-1); LYMPHOCYTES # (AUTO) 3.6 K/uL (1.0-4.8); LYMPHOCYTES % (AUTO) 35.1 % (21.0-51.0); MEAN CORPUSCULAR HEMOGLOBIN 30.1 pg (27.0-33.0); MEAN CORPUSCULAR HGB CONC 33.3 g/dL (32.0-36.0); MEAN CORPUSCULAR VOLUME 90.2 fL (79-99); MONOCYTES # (AUTO) 1.1 K/uL (0.1-1.0); NEUTROPHILS # (AUTO) 5.5 K/uL (1.8-7.7); NEUTROPHILS % (AUTO) 52.6 % (40.0-77.0); PLATELET COUNT (AUTO) 211 K/uL (130-400); RED BLOOD CELL COUNT(AUTO) 3.99 MIL/uL (4.00-5.50); RED CELL DISTRIBUTION WIDTH 12.6 % (11.0-15.5); WHITE BLOOD COUNT (AUTO) 10.4 K/uL (4.8-10.8)
[2024-03-15 21:22] LABS: CREATININE 1.2 mg/dL (0.5-1.0); POTASSIUM 3.1 mmol/L (3.5-5.1)
[2024-03-15] MEDS: PoTASSium BIcarbonate/CIT AC 25 MEQ TABLET.EFF PO ONE (22:30)
[2024-03-15] MEDS: 0.9% NACL 500ML IV.SOLN 500 ML IV ONE (22:30)
[2024-03-15 23:04] LABS: APPEARANCE,URINE CLEAR (CLEAR); BILIRUBIN,URINE NEGATIVE (NEGATIVE); COLOR,URINE YELLOW (YELLOW); GLUCOSE, URINE (UA) NEGATIVE (NEGATIVE); KETONES,URINE NEGATIVE (NEGATIVE); LEUKOCYTE ESTERASE ,URINE 25 Leu/uL (NEGATIVE); NITRATE,URINE NEGATIVE (NEGATIVE); OCCULT BLOOD,URINE SMALL (NEGATIVE); PROTEIN,URINE 30 mg/dL (NEGATIVE); UROBILINOGEN,URINE 0.2 mg/dL (0.2-1.0)
[2024-03-15 23:06] LABS: ADD UA MICROSCOPIC YES
[2024-03-15 23:10] LABS: BACTERIA,URINE RARE /HPF (None Seen); MUCUS,URINE RARE LPF (None Seen); NON-SQUAMOUS EPITHELIAL CELL 1 /HPF (0-2); SQUAMOUS EPITHELIAL CELL,UR FEW /HPF (0-2)
[2024-03-16] MEDS ORDERED: ondanSETRON 4MG INJ IVP PRN (01:30)
[2024-03-16] MEDS ORDERED: hydrALAZine 20MG/ML VIAL IV PRN (01:30)
[2024-03-16] MEDS ORDERED: acetaMINOPHEN 325 MG TAB PO PRN (01:30)
[2024-03-16] MEDS ORDERED: LAbetaLOL 20MG SYG IV PRN (01:30)
[2024-03-16] MEDS ORDERED: acetaMINOPHEN 650 MG SUPPOSITORY RC PRN (01:30)
[2024-03-16] MEDS: cefTRIAXone 1G VIAL IVPB SCH (01:35)
[2024-03-16 02:30] VITALS: BP 160/63; PULSE 80; RESP 18; TEMP 97.8
[2024-03-16 04:00] VITALS: BP 160/63; PULSE 80; RESP 18; TEMP 97.8
[2024-03-16] MEDS: INSULIN humuLIN R 100 UNIT/ML 3ML SQ SCH (06:35)
[2024-03-16 08:00] VITALS: BP 140/69; PULSE 79; RESP 18; TEMP 97.7
[2024-03-16 08:27] VITALS: O2SAT 100
[2024-03-16] MEDS: polyETHYLene GLYCol 3350 17 GM POWD.PACK PO SCH (08:31)
[2024-03-16] MEDS: ASCORBIC ACID 500 MG TAB PO SCH (08:31)
[2024-03-16] MEDS: 0.9%NACL 1000ML 1,000 ML IV SCH (11:57)
[2024-03-16 12:00] VITALS: BP 149/64; PULSE 77; RESP 18; TEMP 97.7
[2024-03-16 12:59] LABS: CREATININE 0.9 mg/dL (0.5-1.0); POTASSIUM 3.2 mmol/L (3.5-5.1)
[2024-03-16] MEDS ORDERED: PoTASSium chl 10% ELIXIR 20MEQ 20 MEQ/15 ML UDCUP PO PRN (14:30)
[2024-03-16] MEDS ORDERED: PoTASSium chloRIDE 20MEQ/100ML 100 ML IV PRN (14:30)
[2024-03-16] MEDS: PoTASSium chloRIDE 20MEQ ER 20 MEQ ERTAB PO PRN (14:40)
[2024-03-16 16:00] VITALS: BP 146/59; PULSE 81; RESP 18; TEMP 98
[2024-03-16] MEDS ORDERED: CEPH500B PO (16:58)
== END 2024-03-16 18:30 | disposition home or self-care (01) ==
LOC: EDH 20:38 → INTOOBSV 03-16 00:05 → EDHIP 03-16 00:05 → 4CH 03-16 02:28
PROVIDERS: ADMIT Internal Medicine Critical Care Medicine; ATTEND Internal Medicine Critical Care Medicine
DX: M75.102 Unspecified rotator cuff tear or rupture of left shoulder, not specified as traumatic (principal); G89.29 Other chronic pain; I48.91 Unspecified atrial fibrillation; I10 Essential (primary) hypertension; N17.9 Acute kidney failure, unspecified; E87.6 Hypokalemia; E87.1 Hypo-osmolality and hyponatremia; E86.0 Dehydration; E78.00 Pure hypercholesterolemia, unspecified; R20.2 Paresthesia of skin; E11.65 Type 2 diabetes mellitus with hyperglycemia; E66.01 Morbid (severe) obesity due to excess calories; Z68.35 Body mass index [BMI] 35.0-35.9, adult; Z79.01 Long term (current) use of anticoagulants; Z79.84 Long term (current) use of oral hypoglycemic drugs; Z79.899 Other long term (current) drug therapy; Z98.890 Other specified postprocedural states
CPT/HCPCS: 84484; 80048 ×2; 85025; 81001; 36415 ×2; 73030; 93005; 96361; 96365; 99285; 82948 ×3; 73221; G0378 ×17; J7040; J0696

== ENCOUNTER 2024-06-16 21:07 | Observation (INO) | payer OTHER ==
[~2024-06-16] VITALS: Ht 154.9 cm; Wt 83.9 kg
[~2024-06-16 21:07] MED LIST changes: -AMOX-426 PO; -ASPI-1197 PO; -CEFU500T67 PO; +CEPH500B PO; -HYDR-4060 PO; -HYDR12.54 PO
[2024-06-16 21:28] LABS: BASOPHILS # (AUTO) 0.02 K/uL (0.00-0.20); BASOPHILS % (AUTO) 0.2 % (0.0-5.0); EOSINOPHILS # (AUTO) 0.06 K/uL (0.00-0.70); EOSINOPHILS % (AUTO) 0.6 % (0.0-8.0); HEMATOCRIT 38.8 % (36-48); IMMATURE GRANULOCYTE ABSOLUTE 0.03 K/uL (0-1); LYMPHOCYTES # (AUTO) 4.1 K/uL (1.0-4.8); LYMPHOCYTES % (AUTO) 38.3 % (21.0-51.0); MEAN CORPUSCULAR HEMOGLOBIN 30.2 pg (27.0-33.0); MEAN CORPUSCULAR HGB CONC 32.7 g/dL (32.0-36.0); MEAN CORPUSCULAR VOLUME 92.2 fL (79-99); MONOCYTES # (AUTO) 0.9 K/uL (0.1-1.0); NEUTROPHILS # (AUTO) 5.6 K/uL (1.8-7.7); NEUTROPHILS % (AUTO) 52.6 % (40.0-77.0); PLATELET COUNT (AUTO) 191 K/uL (130-400); RED BLOOD CELL COUNT(AUTO) 4.21 MIL/uL (4.00-5.50); WHITE BLOOD COUNT (AUTO) 10.6 K/uL (4.8-10.8)
[2024-06-16 21:44] LABS: CREATININE 0.9 mg/dL (0.5-1.0); POTASSIUM 3.6 mmol/L (3.5-5.1)
[2024-06-16 21:50] LABS: B-TYPE NATRIURETIC PEPTIDE 23 pg/mL (0-100)
[2024-06-16] MEDS ORDERED: IOHEXOL 350 MG/ML 100ML INFUS..BTL IV ONE (21:53)
[2024-06-16] MEDS: ASPIRIN 325MG TAB PO ONE (22:12)
[2024-06-16] MEDS: MAG/ALUM/SIMETH 30 ML UDCUP PO ONE (22:12)
--- NOTE | 2024-06-16 22:22 | HMCIMG ---
CT ABDOMEN/PELVIS W/CONTRAST HISTORY: Pain COMPARISON: 10/18/2014 TECHNIQUE: Multiple sequential axial images of the abdomen and pelvis were obtained from the dome of the diaphragm through symphysis pubis. Patient was given 100 cc of Omnipaque through intravenous route. Oral contrast was not given. FINDINGS: No pleural effusion is seen bilaterally. There is no evidence of parenchymal disease or pulmonary nodule of the visualized lower lungs. Degenerative changes of the thoracolumbar spine are present. The heart is not enlarged. Postop changes are seen of the lumbar spine with laminectomy changes. Postcholecystectomy changes are seen. Liver measures 14 cm. The liver, spleen, adrenal glands and pancreas are unremarkable. There is no evidence of hydronephrosis bilaterally. No evidence of renal stone is seen. Fecal material is seen in the colon. There are normal size retroperitoneal and mesenteric lymph nodes. No ascites is seen. Atherosclerotic changes are present. There is diverticulosis. Appendix is not well seen. Pelvic sidewalls are symmetric bilaterally. Bladder is well distended without wall thickening. IMPRESSION: 1. No acute findings. CT was performed with one or more following dose reduction techniques: automated exposure control, adjustment of the mA and kv according to patient's size, or use of a iterative reconstruction technique.
[2024-06-16 22:30] LABS: ALBUMIN 3.4 g/dL (3.5-5.0); BILIRUBIN,DIRECT 0.1 mg/dL (0.0-0.3); BILIRUBIN,TOTAL 0.4 mg/dL (0.2-1.0); TOTAL PROTEIN, SERUM 7.1 g/dL (6.0-8.3)
--- NOTE | 2024-06-16 22:31 | ERN ---
General Chief Complaint: Chest Pain Stated Complaint: C/O CP WITH PALPITATIONS Time Seen by MD: 21:08 History of Present Illness Initial Comments 79-year-old female who presents for lower chest upper epigastric pain. The patient reports for the last 36 hours she has been feeling on and off palpitations. No tachycardia, but fluttering type episodes. Today she developed some pain in the upper epigastrium in the lower chest that radiates to her right rib area. It is nonpositional. It is nonexertional. She denies any cough or congestion. She denies any swelling. PCP: Candis Acosta Cruller Maker Machine: Jared Godoy Patient has not had a stress test in years. Allergies: Coded Allergies: Sulfa (Sulfonamide Antibiotics) (Unverified Allergy, Unknown, 11/30/20) azithromycin (Unverified Allergy, Unknown, 11/30/20) codeine (Unverified Allergy, Unknown, 11/30/20) prednisone (Unverified Allergy, Unknown, 11/30/20) Home Meds Active Scripts Cephalexin Monohydrate (Keflex) 500 Mg Cap, 1 CAP PO BID for 5 Days, #20 CAP 0 Refills Prov:SOHAIL RM 03/16/24 Reported Medications Losartan Potassium (Losartan Potassium) 50 Mg Tablet, 1 TAB PO HS 06/02/23 Rivaroxaban (Xarelto) 20 Mg Tablet, 1 TAB PO DAILY 06/02/23 Rosuvastatin Calcium (Rosuvastatin Calcium) 40 Mg Tablet, 1 TAB PO DAILY 06/02/23 Metoprolol Succinate (Metoprolol Succinate) 50 Mg Tab.er.24h, 25 TAB PO DAILY 06/02/23 Metformin HCl (Metformin HCl) 500 Mg Tablet, 1 TAB PO BID 06/02/23 Past Medical History Past Medical History: A-Fib, Diabetes-Type II, High Cholesterol, Heart Disease, Hypertension Medical History Other: GALLSTONES Past Surgical History: Cholecystectomy, Other Surgical History Other: BACK SX;FUSION Family History Family History: Negative Social History Social History: Negative, Lives with family Female( History) History: Not Applicable ROS Dictation CONSTITUTIONAL: No chills, no fever, no weakness, no diaphoresis, no malaise. HEAD/FACE: No signs of trauma. EENT: No eye pain, no blurred vision, no tearing, no double vision, no ear pain, no ear discharge, no nose pain, no nasal congestion, no throat pain, no throat swelling, no mouth pain. RESPIRATORY: No cough, no orthopnea, no SOB, no stridor, no wheezing. CARDIOVASCULAR: Chest pain/upper epigastric pain GASTROINTESTINAL/ABDOMINAL: No abdominal pain, no constipation, no diarrhea, no nausea, no vomiting. GENITOURINARY: No abnormal discharge, no dysuria, no frequent urination, no hematuria. No complaints of pain in the genitals. MUSCULOSKELETAL: No back pain, no gout, no joint pain, no joint swelling, no muscle pain, no muscle stiffness, no neck pain. INTEGUMENTARY: No change in color, no change in hair/nails, no dryness, no lesion, no lumps, no rash. NEUROLOGICAL/PSYCH: No anxiety, not depressed, no emotional problem, no headache, no numbness, no pre-existing deficit, no history of seizures, no tremors, no weakness. HEMATOLOGIC/LYMPHATIC: Not anemic, no history of blood clots, no apparent bleeding, no bruising, glands not swollen. All Systems Negative, Except as Noted. Physical Exam Physical Exam Dictation VITAL SIGNS: Reviewed. GENERAL APPEARANCE: Alert, oriented x3, no acute distress HEAD AND FACE: Non-traumatic. EYES: PERRL, pink conjunctivas, eyelid no trauma, anterior chamber clear. EARS: Pinnas intact and no signs of trauma or erythema. Ear canals clear and no discharge. TMs no erythema. NOSE: No discharge, no bleeding. OROPHARYNX: Mouth normal, teeth no caries, tongue pink. Pharynx clear, no erythema. Tonsils no exudates, no abscesses noted. Mucous membrane moist. NECK: Supple, non-tender, no thyromegaly, no masses, no JVD, no bruits. BREAST: Deferred. CHEST: No tenderness, no crepitus, no paradoxical movement, no retractions. LUNGS: Clear, well-ventilated, symmetric, no rales, no wheezing, no rhonchi, no stridor, good breath sounds bilaterally. HEART: Regular rate, regular rhythm, no murmur, no gallops. VASCULAR: No peripheral edema. ABDOMEN: Soft, positive bowel sounds, nondistended, no guarding, nontender, no rebound, no masses no hepatomegaly, no splenomegaly, no Dickson's sign, no hernias. RECTAL: Deferred. GENITAL: Deferred. NEUROLOGICAL: Normal speech, gross motor function intact, gross sensory function intact. MUSCULOSKELETAL: Neck nontender, full range of motion, back nontender, full range of motion. EXTREMITIES: Nontender, full range of motion. SKIN: Color pink, dry, no turgor, no rash, no lacerations, no abrasions, no contusions. LYMPHATICS: Deferred. Results Laboratory and Microbiology Lab and Micro Result Laboratory Tests Test 06/16/24 21:20 06/16/24 21:48 06/16/24 22:23 White Blood Count 10.6 K/uL (4.8-10.8) Red Blood Count 4.21 MIL/uL (4.00-5.50) Hemoglobin 12.7 g/dL (12.0-16.0) Hematocrit 38.8 % (36-48) Mean Corpuscular Volume 92.2 fL (79-99) Mean Corpuscular Hemoglobin 30.2 pg (27.0-33.0) Mean Corpuscular Hemoglobin Concent 32.7 g/dL (32.0-36.0) Red Cell Distribution Width 13.0 % (11.0-15.5) Platelet Count 191 K/uL (130-400) Mean Platelet Volume 9.6 fL (7.5-10.5) Immature Granulocyte % (Auto) 0.3 % (0-1) Neutrophils (%) (Auto) 52.6 % (40.0-77.0) Lymphocytes (%) (Auto) 38.3 % (21.0-51.0) Monocytes (%) (Auto) 8.0 % (3.0-13.0) Eosinophils (%) (Auto) 0.6 % (0.0-8.0) Basophils (%) (Auto) 0.2 % (0.0-5.0) Neutrophils # (Auto) 5.6 K/uL (1.8-7.7) Lymphocytes # (Auto) 4.1 K/uL (1.0-4.8) Monocytes # (Auto) 0.9 K/uL (0.1-1.0) Eosinophils # (Auto) 0.06 K/uL (0.00-0.70) Basophils # (Auto) 0.02 K/uL (0.00-0.20) Absolute Immature Granulocyte (auto 0.03 K/uL (0-1) Nucleated Red Blood Cells 0.0 % (0.0-0.19) Sodium Level 134 mmol/L (136-145) L Potassium Level 3.6 mmol/L (3.5-5.1) Chloride Level 94 mmol/L (101-111) L Carbon Dioxide Level 33 mmol/L (21-32) H Blood Urea Nitrogen 22 mg/dL (7-18) H Creatinine 0.9 mg/dL (0.5-1.0) Glomerular Filtration Rate Calc 65 mL/min (>90) Random Glucose 103 mg/dL (70-105) Total Calcium 9.0 mg/dL (8.5-10.1) Total Bilirubin 0.4 mg/dL (0.2-1.0) Direct Bilirubin 0.1 mg/dL (0.0-0.3) Aspartate Amino Transf (AST/SGOT) 30 U/L (10-37) Alanine Aminotransferase (ALT/SGPT) 28 U/L (12-78) Alkaline Phosphatase 58 U/L (50-136) Total Creatine Kinase 86 U/L (21-232) Troponin I High Sensitivity 6 ng/L (4-50) B-Type Natriuretic Peptide 23 pg/mL (0-100) Total Protein 7.1 g/dL (6.0-8.3) Albumin 3.4 g/dL (3.5-5.0) L Lipase 38 U/L (16-77) Troponin I < 0.05 ng/mL (0.00-0.05) Urine Color COLORLESS (YELLOW) Urine Appearance CLEAR (CLEAR) Urine pH 7.0 (5.0-8.0) Urine Specific [place] 1.016 (1.001-1.031) Urine Protein NEGATIVE mg/dL (NEGATIVE) Urine Glucose (UA) NEGATIVE mg/dL (NEGATIVE) Urine Ketones NEGATIVE mg/dL (NEGATIVE) Urine Occult Blood NEGATIVE (NEGATIVE) Urine Nitrate NEGATIVE (NEGATIVE) Urine Bilirubin NEGATIVE mg/dL (NEGATIVE) Urine Urobilinogen 0.2 mg/dL (0.2-1.0) Urine Leukocyte Esterase 250 Nawaf/uL (NEGATIVE) H Urine RBC 0-1 /HPF (0-1) Urine WBC 6-10 /HPF (0-1) H Urine Squamous Epithelial Cells RARE /HPF (0-2) Urine Bacteria None /HPF (None Seen) MDM CC: Chest pain with palpitations Historian: Patient Comorbidities: Advanced age, AFib, DM two, HTN, CAD, DLD. Complicated medical patient with a multiple comorbidities. Differential diagnosis: Arrhythmia, ACS, PE, TAD, PNA, GI pathology, other Vital signs: Pulse of 100, respiratory rate of 20, hypertension 166/86 afebrile. Stable. EKG: Sinus rhythm rate of 86 normal axis good R-wave progression intervals are stable no STEMI. Independently interpreted by me. CXR: No cardiomegaly no pleural effusion no focal infiltrates independently interpreted by me CT abdomen and pelvis with contrast: No obvious lung pathology, normal heart size, no free air no obvious surgical pathology. Absent gallbladder with clips. No signs of obstruction. Some stomach wall thickening. No major abnormalities per my independent interpretation. Labs: CBC is normal, metabolic panel shows an elevated BUN to creatinine ratio consistent with dehydration but is otherwise unremarkable. CK is normal. Troponin is normal. BNP normal. Liver enzymes normal. Heart score of four. Treatment in ER: Maalox, aspirin. It is unclear if this is GI epigastric in nature or cardiac in nature. Since she does have a high heart score and has not had a stress test and a couple of years, we will admit for telemetry monitoring cardiac evaluation. Patient is agreeable to the plan. Consultation: Hospitalist for admission. ED Course Orders Procedure Category Date Status Time Vital Signs Per CPOE 06/16/24 Transmitted Routine 21:08 B-Type Natriuretic LAB 06/16/24 Complete Peptide 21:08 Chest 1vw RAD 06/16/24 Taken 21:08 12 Lead Ekg Tracing- EKG 06/16/24 Logged Technical 21:08 Oxygen By Nc/Pulse Ox CPOE 06/16/24 Transmitted 21:08 Maintain Iv CPOE 06/16/24 Transmitted 21:08 Iv Insertion CPOE 06/16/24 Transmitted 21:08 Cardiac Monitoring CPOE 06/16/24 Transmitted 21:08 Pulse Oximetry With CPOE 06/16/24 Transmitted Vs And Prn 21:08 Cbc With Differential LAB 06/16/24 Complete 21:08 Activity: Br W/Brp CPOE 06/16/24 Transmitted With Assist 21:08 Creatine Kinase, Total LAB 06/16/24 Complete 21:08 Urinalysis Profile LAB 06/16/24 Complete 21:08 Troponin Poc Order LAB 06/16/24 Complete Only 21:08 Bedside Troponin-I LAB.ER 06/16/24 In Process (Poc) 21:08 Basic Metabolic Panel LAB 06/16/24 Complete 21:08 Troponin I High LAB 06/16/24 Complete Sensitivity 21:15 Hepatic Function Panel LAB 06/16/24 Complete 21:39 Lipase LAB 06/16/24 Complete 21:39 Ct Abdomen/Pelvis CT 06/16/24 Resulted W/Contrast 21:39 Mag/Alum/Simeth 30ml PHA 06/16/24 Complete (Maalox Plus 30ml) 22:00 Aspirin 325mg Tab PHA 06/16/24 Complete (Aspirin 325mg Tab) 22:00 Iohexol (Omnipaque) PHA 06/16/24 Complete 21:53 Culture Urine JULIANA 06/16/24 In Process 22:45 Current Medications Medications (Trade) Dose Ordered Sig/Walter Route PRN Reason Start Time Stop Time Status Last Admin Dose Admin Al Hydroxide/Mg Hydroxide (MAALox PLUS 30ML) 30 ml ONCE ONCE PO 06/16/24 22:00 06/16/24 22:01 DC 06/16/24 22:12 Aspirin (Aspirin 325mg Tab) 325 mg ONCE ONCE PO 06/16/24 22:00 06/16/24 22:01 DC 06/16/24 22:12 Iohexol (Omnipaque) 35,000 mg STK-MED ONCE IV 06/16/24 21:53 06/16/24 21:55 DC Vital Signs Date Time Temp Pulse Resp B/P (MAP) Pulse Ox O2 Delivery O2 Flow Rate FiO2 06/16/24 21:27 98.4 97 18 154/82 98 Room Air* 0 21 06/16/24 21:11 99.0 100 20 166/86 97 Room Air DX & DISP Disposition: Inpatient Departure Impression: Primary Impression: Chest pain with high risk for cardiac etiology Additional Impressions: History of atrial fibrillation, Palpitations Condition: Stable Referrals: CANDIS ACOSTA MD (PCP) HARIKA REDMAN DO Jun 16, 2024 22:31
[2024-06-16 22:45] LABS: ADD UA MICROSCOPIC YES; APPEARANCE,URINE CLEAR (CLEAR); BILIRUBIN,URINE NEGATIVE (NEGATIVE); COLOR,URINE COLORLESS (YELLOW); GLUCOSE, URINE (UA) NEGATIVE (NEGATIVE); KETONES,URINE NEGATIVE (NEGATIVE); LEUKOCYTE ESTERASE ,URINE 250 Leu/uL (NEGATIVE); NITRATE,URINE NEGATIVE (NEGATIVE); OCCULT BLOOD,URINE NEGATIVE (NEGATIVE); PROTEIN,URINE NEGATIVE (NEGATIVE); UROBILINOGEN,URINE 0.2 mg/dL (0.2-1.0)
[2024-06-16 22:48] LABS: RBC,URINE 0-1 /HPF (0-1); SQUAMOUS EPITHELIAL CELL,UR RARE /HPF (0-2)
--- NOTE | 2024-06-16 23:26 | HMCIMG ---
CHEST 1VW HISTORY: Chest pain COMPARISON: None FINDINGS: A frontal projection of the chest was obtained. No acute pulmonary infiltrates is seen. The heart is normal in size. Postop changes are seen of the cervical spine. No evidence of aortic calcification is seen. IMPRESSION: 1. No acute pulmonary infiltrate is seen.
--- NOTE | 2024-06-16 23:42 | NUR ---
B[facility] TRANS ROUTER TACAROLE NONOG AT BEDSIDE TO EVALUATE PATIENT
[2024-06-17] MEDS ORDERED: hydrALAZine 20MG/ML VIAL IV PRN
[2024-06-17] MEDS ORDERED: acetaMINOPHEN 325 MG TAB PO PRN
[2024-06-17] MEDS ORDERED: HYDROcodone/APAP 5/325 1 TAB TABLET PO PRN
[2024-06-17] MEDS ORDERED: ondanSETRON 4MG INJ IVP PRN
[2024-06-17] MEDS ORDERED: ALBUTEROL 0.083% 2.5 MG/3 ML INH IH PRN
[2024-06-17] MEDS ORDERED: LAbetaLOL 20MG SYG IV PRN
[2024-06-17] MEDS ORDERED: acetaMINOPHEN 650 MG SUPPOSITORY RC PRN
--- NOTE | 2024-06-17 00:03 | HP ---
[facility] HISTORY & PHYSICAL Date Patient Seen: Jun 16, 2024 Time of Visit: 23:55 Supervising Physician: Dr. Niall Newton Primary Care Physician: Dr. Cisse Outpatient Specialists: Dr. Godoy Inpatient Consults: [ ] PROBLEM LIST: Palpitation, POA Atypical chest pain, POA AFib, rate controlled, on Eliquis Hypertension, POA Hyperlipidemia, POA DM type 2, POA Plan: Admit to medical-surgical floor Continue cardiac monitoring VS per unit protocol Cardiac diet ISS and fingerstick per unit protocol Stat EKG and troponin level of with chest pain Multimodal pain relief Bilateral SCDs Up ad kika Consult cardiology in a.m. CBC, CMP, magnesium level daily HPI: 79-year-old female with past medical history of atrial fibrillation, hypertension, hyperlipidemia, DM type 2 who presented to ED via private vehicle with complaint of chest discomfort and palpitation that has been ongoing for several days. Patient was seen and examined in ED with nephew by Kev at bedside. According to the patient's he has been having this vague abdominal pain with associated palpitation not related to exertion. Earlier today she felt like a sudden sharp pain down on her right chest prompting her to call her nephew to bring her to ED for further medical evaluation. In ED stat CT of the abdomen was done showed no acute intra-abdominal process, chest x-ray is also unremarkable. Her CBC is unremarkable her chemistry is un revealing for any acute electrolyte abnormality or kidney dysfunction. Her troponin level and BNP were all within normal limits. At present patient is currently hemodynamically stable, denies any headache, shortness of breath, abdominal pain, flu-like symptoms, cough, fever, or exposure to sick people. Patient denies any smoking, alcohol intake, illicit drug use. Patient will be admitted for further cardiac work up given her risk factors and we will consult Dr. Godoy in the morning. PAST MEDICAL HX: see above PAST SURGICAL HX: noncontributory SOCIAL HISTORY: No tobacco, ETOH, or illicit drug use Coded Allergies: Sulfa (Sulfonamide Antibiotics) (Unverified Allergy, Unknown, 11/30/20) azithromycin (Unverified Allergy, Unknown, 11/30/20) codeine (Unverified Allergy, Unknown, 11/30/20) prednisone (Unverified Allergy, Unknown, 11/30/20) REVIEW OF SYSTEMS: 12 point ROS reviewed with patient. Pertinent positives mentioned above. Otherwise negative. PHYSICAL EXAM: GENERAL: alert, weak, awake oriented x 3 HEENT: EOMI, Sclera non icteric, moist mucosa NECK: Supple, no JVD, trachea midline LUNGS: Clear breath sounds bilaterally. No wheezes HEART: Regular rate and rhythm. Normal S1 and S2, without murmurs ABD: Abdomen soft, nontender. Bowel sounds present EXT: No clubbing cyanosis or edema NEURO: Alert and oriented to person, follows commands Vital Signs (last 8hr) Date Time Temp Pulse Resp B/P (MAP) Pulse Ox O2 Delivery O2 Flow Rate FiO2 06/16/24 23:26 98.4 82 16 118/48 98 Room Air* 0 21 06/16/24 21:27 98.4 97 18 154/82 98 Room Air* 0 21 06/16/24 21:11 99.0 100 20 166/86 97 Room Air LABS: Hematology Labs: Test 06/16/24 21:20 Range/Units White Blood Count 10.6 4.8-10.8 K/uL Red Blood Count 4.21 4.00-5.50 MIL/uL Hemoglobin 12.7 12.0-16.0 g/dL Hematocrit 38.8 36-48 % Mean Corpuscular Volume 92.2 79-99 fL Mean Corpuscular Hemoglobin 30.2 27.0-33.0 pg Mean Corpuscular Hemoglobin Concent 32.7 32.0-36.0 g/dL Red Cell Distribution Width 13.0 11.0-15.5 % Platelet Count 191 130-400 K/uL Mean Platelet Volume 9.6 7.5-10.5 fL Immature Granulocyte % (Auto) 0.3 0-1 % Neutrophils (%) (Auto) 52.6 40.0-77.0 % Lymphocytes (%) (Auto) 38.3 21.0-51.0 % Monocytes (%) (Auto) 8.0 3.0-13.0 % Eosinophils (%) (Auto) 0.6 0.0-8.0 % Basophils (%) (Auto) 0.2 0.0-5.0 % Neutrophils # (Auto) 5.6 1.8-7.7 K/uL Lymphocytes # (Auto) 4.1 1.0-4.8 K/uL Monocytes # (Auto) 0.9 0.1-1.0 K/uL Eosinophils # (Auto) 0.06 0.00-0.70 K/uL Basophils # (Auto) 0.02 0.00-0.20 K/uL Absolute Immature Granulocyte (auto 0.03 0-1 K/uL Nucleated Red Blood Cells 0.0 0.0-0.19 % Chemistry Labs: Test 06/16/24 21:48 06/16/24 21:20 Range/Units Troponin I < 0.05 0.00-0.05 ng/mL Sodium Level 134 L 136-145 mmol/L Potassium Level 3.6 3.5-5.1 mmol/L Chloride Level 94 L 101-111 mmol/L Carbon Dioxide Level 33 H 21-32 mmol/L Blood Urea Nitrogen 22 H 7-18 mg/dL Creatinine 0.9 0.5-1.0 mg/dL Glomerular Filtration Rate Calc 65 >90 mL/min Random Glucose 103 70-105 mg/dL Total Calcium 9.0 8.5-10.1 mg/dL Total Bilirubin 0.4 0.2-1.0 mg/dL Direct Bilirubin 0.1 0.0-0.3 mg/dL Aspartate Amino Transf (AST/SGOT) 30 10-37 U/L Alanine Aminotransferase (ALT/SGPT) 28 12-78 U/L Alkaline Phosphatase 58 50-136 U/L Total Creatine Kinase 86 21-232 U/L Troponin I High Sensitivity 6 4-50 ng/L B-Type Natriuretic Peptide 23 0-100 pg/mL Total Protein 7.1 6.0-8.3 g/dL Albumin 3.4 L 3.5-5.0 g/dL Lipase 38 16-77 U/L DIAGNOSTICS / RADIOLOGY RESULTS: CT ABDOMEN/PELVIS W/CONTRAST HISTORY: Pain COMPARISON: 10/18/2014 TECHNIQUE: Multiple sequential axial images of the abdomen and pelvis were obtained from the dome of the diaphragm through symphysis pubis. Patient was given 100 cc of Omnipaque through intravenous route. Oral contrast was not given. FINDINGS: No pleural effusion is seen bilaterally. There is no evidence of parenchymal disease or pulmonary nodule of the visualized lower lungs. Degenerative changes of the thoracolumbar spine are present. The heart is not enlarged. Postop changes are seen of the lumbar spine with laminectomy changes. Postcholecystectomy changes are seen. Liver measures 14 cm. The liver, spleen, adrenal glands and pancreas are unremarkable. There is no evidence of hydronephrosis bilaterally. No evidence of renal stone is seen. Fecal material is seen in the colon. There are normal size retroperitoneal and mesenteric lymph nodes. No ascites is seen. Atherosclerotic changes are present. There is diverticulosis. Appendix is not well seen. Pelvic sidewalls are symmetric bilaterally. Bladder is well distended without wall thickening. IMPRESSION: 1. No acute findings. CHEST 1VW HISTORY: Chest pain COMPARISON: None FINDINGS: A frontal projection of the chest was obtained. No acute pulmonary infiltrates is seen. The heart is normal in size. Postop changes are seen of the cervical spine. No evidence of aortic calcification is seen. IMPRESSION: 1. No acute pulmonary infiltrate is seen. PLAN NEURO: Minimize central acting medications as possible. Maintain fall precautions, adequate lighting during the day PULMONARY: Supplemental 02 as needed. Maintain aspiration precautions at all times CARDIOVASCULAR: Follow hemodynamics. Vital signs per facility protocol GI & NUTRITION: Continue with nutritional support. Continue stool softeners and laxatives as needed. KIDNEYS & ELECTROLYTES: Strict monitoring of intake, output and overall fluid balance. Avoid nephrotoxic medications to the extent possible. Medications to be dosed according to renal function. Monitor electrolytes and replace as needed ENDOCRINE: Maintain blood glucose between 100-180 at all times. Hypoglycemia protocol in place INFECTIOUS DISEASE: Trend temperature, WBC and procalcitonin level Follow cultures, deescalate antibiotics as soon as possible. Panculture if new onset fever ONCOLOGY/HEMATOLOGY/COAGULATION: Monitor for s/s of bleeding Monitor hemoglobin, coagulation studies as needed SKIN: Pressure ulcer prevention per facility protocol Specialty mattress ORTHO/REHAB: Continue PT/OT Prophylaxis: Continue GI and DVT prophylaxis Code Status: Full Resuscitation Disposition: TBD Other: Total patient care time exceeds 35 minutes excluding all procedures. Supervising physician: JACOBY Sheth CONTROLS DESIGN ENGINEER Jun 17, 2024 00:02
[2024-06-17 00:15] VITALS: PULSE 73; RESP 17; O2SAT 94
--- NOTE | 2024-06-17 05:58 | EKG ---
[facility] Test Date: 2024-06-16 Test Time: 21:10:52 Pat Name: ANKIT HARVEY Department: [facility] Room: ED 19 Gender: F Nut Feeder: [id number] : [id number] Requested By: HARIKA REDMAN Order Number: [id number] Reading MD: Blair Townsend Measurements Intervals Lena Rate: 86 P: 56 AR: 158 QRS: 10 QRSD: 83 T: 40 QT: 361 QTc: 433 Interpretive Statements Sinus rhythm Compared to ECG 03/15/2024 20:49:35 Left bundle-branch block no longer present Electronically Signed On 06-17-2024 17:08:36 STOCK SHAPER by Blair Townsend Please click the below link to view image of tracing.
[2024-06-17 07:04] LABS: BASOPHILS # (AUTO) 0.02 K/uL (0.00-0.20); BASOPHILS % (AUTO) 0.2 % (0.0-5.0); EOSINOPHILS # (AUTO) 0.06 K/uL (0.00-0.70); EOSINOPHILS % (AUTO) 0.7 % (0.0-8.0); HEMATOCRIT 36.6 % (36-48); IMMATURE GRANULOCYTE ABSOLUTE 0.03 K/uL (0-1); LYMPHOCYTES # (AUTO) 2.9 K/uL (1.0-4.8); LYMPHOCYTES % (AUTO) 34.1 % (21.0-51.0); MEAN CORPUSCULAR HEMOGLOBIN 30.1 pg (27.0-33.0); MEAN CORPUSCULAR HGB CONC 32.8 g/dL (32.0-36.0); MEAN CORPUSCULAR VOLUME 91.7 fL (79-99); MONOCYTES # (AUTO) 0.8 K/uL (0.1-1.0); MONOCYTES % (AUTO) 8.9 % (3.0-13.0); NEUTROPHILS # (AUTO) 4.7 K/uL (1.8-7.7); NEUTROPHILS % (AUTO) 55.7 % (40.0-77.0); PLATELET COUNT (AUTO) 182 K/uL (130-400); RED BLOOD CELL COUNT(AUTO) 3.99 MIL/uL (4.00-5.50); WHITE BLOOD COUNT (AUTO) 8.5 K/uL (4.8-10.8)
--- NOTE | 2024-06-17 07:10 | NUR ---
ASSUMED CARE OF THE PT.
[2024-06-17 07:15] LABS: CREATININE 0.7 mg/dL (0.5-1.0); MAGNESIUM 2.1 mg/dL (1.80-2.40); PHOSPHORUS 3.8 mg/dL (2.5-4.9); POTASSIUM 3.6 mmol/L (3.5-5.1)
[2024-06-17 07:28] VITALS: PULSE 82; RESP 20; O2SAT 95
[2024-06-17] MEDS: INSULIN humuLIN R 100 UNIT/ML 3ML SQ SCH (07:30)
[2024-06-17] MEDS: ASPIRIN 81 MG EC TAB PO SCH (08:38)
[2024-06-17] MEDS: metOPROLol sucCINATE 25 MG TAB.SR.24H PO SCH (08:39)
[2024-06-17] MEDS: ASCORBIC ACID 500 MG TAB PO SCH (08:39)
[2024-06-17] MEDS: FAMOTIDINE 20MG TAB PO SCH (08:39)
--- NOTE | 2024-06-17 11:00 | NUR ---
BENCHMARK AT BEDSIDE.
[2024-06-17 11:12] LABS: SARS-CoV-2, RNA, NAAT NEGATIVE SARS CoV-2 (NEGATIVE)
--- NOTE | 2024-06-17 11:14 | PN ---
[facility] PROGRESS NOTE Date Patient Seen: Jun 17, 2024 Time of Visit: 11:14 Supervising Physician: [ ] Primary Care Physician: Dr. Cisse Outpatient Specialists: Dr. Godoy Inpatient Consults: [ ] PROBLEM LIST: Palpitation, POA Atypical chest pain, POA AFib, rate controlled, on Eliquis Hypertension, POA Hyperlipidemia, POA DM type 2, POA Plan: Admit to medical-surgical floor Continue cardiac monitoring VS per unit protocol Cardiac diet ISS and fingerstick per unit protocol Stat EKG and troponin level of with chest pain Multimodal pain relief Bilateral SCDs Up ad kika Consult cardiology in a.m. CBC, CMP, magnesium level daily INTERVAL HISTORY: [ ] REVIEW OF SYSTEMS: 12 point ROS reviewed with patient. Pertinent positives mentioned above. Otherwise negative. PHYSICAL EXAM: GENERAL: alert, weak, awake oriented x 3 HEENT: EOMI, Sclera non icteric, moist mucosa NECK: Supple, no JVD, trachea midline LUNGS: Clear breath sounds bilaterally. No wheezes HEART: Regular rate and rhythm. Normal S1 and S2, without murmurs ABD: Abdomen soft, nontender. Bowel sounds present EXT: No clubbing cyanosis or edema NEURO: Alert and oriented to person, follows commands Vital Signs (last 8hr) Date Time Temp Pulse Resp B/P (MAP) Pulse Ox O2 Delivery O2 Flow Rate FiO2 06/17/24 07:55 98.4 71 20 128/51 97 Room Air* 0 21 06/17/24 07:28 82 20 N/A Room Air 06/17/24 07:26 98.4 67 18 128/51 94 Room Air* 0 06/17/24 05:53 98.4 82 19 126/57 97 Room Air* 0 06/17/24 03:30 98.4 70 18 110/67 98 Room Air* 0 21 LABS: Hematology Labs: Test 06/17/24 06:34 Range/Units White Blood Count 8.5 4.8-10.8 K/uL Red Blood Count 3.99 L 4.00-5.50 MIL/uL Hemoglobin 12.0 12.0-16.0 g/dL Hematocrit 36.6 36-48 % Mean Corpuscular Volume 91.7 79-99 fL Mean Corpuscular Hemoglobin 30.1 27.0-33.0 pg Mean Corpuscular Hemoglobin Concent 32.8 32.0-36.0 g/dL Red Cell Distribution Width 13.0 11.0-15.5 % Platelet Count 182 130-400 K/uL Mean Platelet Volume 9.7 7.5-10.5 fL Immature Granulocyte % (Auto) 0.4 0-1 % Neutrophils (%) (Auto) 55.7 40.0-77.0 % Lymphocytes (%) (Auto) 34.1 21.0-51.0 % Monocytes (%) (Auto) 8.9 3.0-13.0 % Eosinophils (%) (Auto) 0.7 0.0-8.0 % Basophils (%) (Auto) 0.2 0.0-5.0 % Neutrophils # (Auto) 4.7 1.8-7.7 K/uL Lymphocytes # (Auto) 2.9 1.0-4.8 K/uL Monocytes # (Auto) 0.8 0.1-1.0 K/uL Eosinophils # (Auto) 0.06 0.00-0.70 K/uL Basophils # (Auto) 0.02 0.00-0.20 K/uL Absolute Immature Granulocyte (auto 0.03 0-1 K/uL Nucleated Red Blood Cells 0.0 0.0-0.19 % Chemistry Labs: Test 06/17/24 08:42 06/17/24 06:34 06/16/24 21:48 06/16/24 21:20 Range/Units Whole Blood Glucose 106 70-110 MG/DL Sodium Level 140 136-145 mmol/L Potassium Level 3.6 3.5-5.1 mmol/L Chloride Level 102 101-111 mmol/L Carbon Dioxide Level 33 H 21-32 mmol/L Blood Urea Nitrogen 16 7-18 mg/dL Creatinine 0.7 0.5-1.0 mg/dL Glomerular Filtration Rate Calc 88 >90 mL/min Random Glucose 105 70-105 mg/dL Total Calcium 9.2 8.5-10.1 mg/dL Phosphorus Level 3.8 2.5-4.9 mg/dL Magnesium Level 2.10 1.80-2.40 mg/dL Troponin I High Sensitivity 8 4-50 ng/L Troponin I < 0.05 0.00-0.05 ng/mL Total Bilirubin 0.4 0.2-1.0 mg/dL Direct Bilirubin 0.1 0.0-0.3 mg/dL Aspartate Amino Transf (AST/SGOT) 30 10-37 U/L Alanine Aminotransferase (ALT/SGPT) 28 12-78 U/L Alkaline Phosphatase 58 50-136 U/L Total Creatine Kinase 86 21-232 U/L B-Type Natriuretic Peptide 23 0-100 pg/mL Total Protein 7.1 6.0-8.3 g/dL Albumin 3.4 L 3.5-5.0 g/dL Lipase 38 16-77 U/L Coagulation Labs: Test 06/17/24 06:34 Range/Units D-Dimer Quantitative (PE/DVT) 350 0-500 ng/mL DIAGNOSTICS / RADIOLOGY RESULTS: [ ] PLAN NEURO: Minimize central acting medications as possible. Maintain fall precautions, adequate lighting during the day PULMONARY: Supplemental 02 as needed. Maintain aspiration precautions at all times CARDIOVASCULAR: Follow hemodynamics. Vital signs per facility protocol GI & NUTRITION: Continue with nutritional support. Continue stool softeners and laxatives as needed. KIDNEYS & ELECTROLYTES: Strict monitoring of intake, output and overall fluid balance. Avoid nephrotoxic medications to the extent possible. Medications to be dosed according to renal function. Monitor electrolytes and replace as needed ENDOCRINE: Maintain blood glucose between 100-180 at all times. Hypoglycemia protocol in place INFECTIOUS DISEASE: Trend temperature, WBC and procalcitonin level Follow cultures, deescalate antibiotics as soon as possible. Panculture if new onset fever ONCOLOGY/HEMATOLOGY/COAGULATION: Monitor for s/s of bleeding Monitor hemoglobin, coagulation studies as needed SKIN: Pressure ulcer prevention per facility protocol Specialty mattress ORTHO/REHAB: Continue PT/OT Prophylaxis: Continue GI and DVT prophylaxis Code Status: Full Resuscitation Disposition: TBD Other: Total patient care time exceeds 35 minutes excluding all procedures. RISHABH ORTIZ Jun 17, 2024 11:14
[2024-06-17 11:17] LABS: INFLUENZA TYPE A Negative For Type A (NEGATIVE); INFLUENZA TYPE B Negative For Type B (NEGATIVE)
--- NOTE | 2024-06-17 11:17 | NUR ---
HAYES LAYNE @5PM,PT IS TO BE NPO UNTIL THEN.
[2024-06-17 13:59] VITALS: BP 166/49; PULSE 71; RESP 18; TEMP 97.5; O2SAT 98
--- NOTE | 2024-06-17 15:12 | HMCIMG ---
US ABDOMINAL COMPLETE HISTORY: Epigastric pain COMPARISON: None TECHNIQUE: Multiple transverse and longitudinal ultrasound images of the abdomen were obtained. FINDINGS: Liver measured 13 cm. The visualized portion of the pancreas is within normal limits. Liver is echogenic consistent with liver parenchymal disease. Gallbladder has been removed. Common duct measures 3 mm. No evidence of gallbladder wall thickening is seen. Both kidneys are seen. Right kidney measures 10.3 x 4.8 x 4.1 cm. Left kidney measures 9.3 x 5 x 3.5 cm. No hydronephrosis is seen of the both kidneys. The spleen is grossly unremarkable. IMPRESSION: 1. Post cholecystectomy. No ductal dilatation is seen. 2. No hydronephrosis is seen.
--- NOTE | 2024-06-17 16:03 | NUR ---
DCP: HOME Sw lives with her sister Laila Cerna [phone]. Pt is retired and remains very active and independent. She is able to complete her ADLS and uses no DME or in home care services. PCP is [facility] and uses [facility] for rx. Denies dc needs and will return home at ca. Addendum: 06/17/24 at 1611 by ROMA DE LA CRUZ Amended: Links added.
--- NOTE | 2024-06-17 18:38 | DS ---
[facility] DISCHARGE SUMMARY Date Patient Seen: Jun 17, 2024 Time of Visit: 18:38 Supervising Physician: Dr. Niall Ortiz Primary Care Physician: Dr. Cisse Outpatient Specialists: Dr. Godoy Inpatient Consults: NA PROBLEM LIST: Palpitations, POA, none while in the ER Atypical chest pain to right side likely from lifting heavy groceries, POA, troponin negative Paroxysmal atrial fibrillation, rate controlled, on Eliquis Left rotator cuff tear, pending outpatient surgery Hypertension Hyperlipidemia DM type 2 HPI (per admitting provider): 79-year-old female with past medical history of atrial fibrillation, hypertension, hyperlipidemia, DM type 2 who presented to ED via private vehicle with complaint of chest discomfort and palpitation that has been ongoing for several days. Patient was seen and examined in ED with nephew by Kev at bedside. According to the patient's he has been having this vague abdominal pain with associated palpitation not related to exertion. Earlier today she felt like a sudden sharp pain down on her right chest prompting her to call her nephew to bring her to ED for further medical evaluation. In ED stat CT of the abdomen was done showed no acute intra-abdominal process, chest x-ray is also unremarkable. Her CBC is unremarkable her chemistry is unrevealing for any acute electrolyte abnormality or kidney dysfunction. Her troponin level and BNP were all within normal limits. At present patient is currently hemodynamically stable, denies any headache, shortness of breath, abdominal pain, flu-like symptoms, cough, fever, or exposure to sick people. Patient denies any smoking, alcohol intake, illicit drug use. HOSPITAL COURSE: Patient presented to the ER with complaints of right sided chest pain and palpitations. States her right sided/epigastric pain started after she ate some roast beef and lifting heavy groceries with her right arm due to inability to use her left arm for lifting due to left rotator cuff tear, pending outpatient surgery. All troponin negative x3, EKG normal. Denies palpitation or epigastric pain. US abdomen. CT abdomen negative for acute findings. States she is ready to go home . Stable for discharge. Advised to follow up PCP and cardiology in the next 2-3 days, verbalized under standing. Continued Medications: Hydrochlorothiazide (Hydrochlorothiazide) 12.5 Mg Tablet 12.5 MG PO DAILY, TAB Losartan Potassium (Losartan Potassium) 50 Mg Tablet 1 TAB PO HS Metformin HCl (Metformin HCl) 500 Mg Tablet 1 TAB PO BID Metoprolol Succinate (Metoprolol Succinate) 50 Mg Tab.er.24h 25 TAB PO DAILY Rivaroxaban (Xarelto) 20 Mg Tablet 1 TAB PO DAILY Rosuvastatin Calcium (Rosuvastatin Calcium) 40 Mg Tablet 1 TAB PO DAILY PHYSICAL EXAM: GENERAL: alert, weak, awake oriented x 3 HEENT: EOMI, Sclera non icteric, moist mucosa NECK: Supple, no JVD, trachea midline LUNGS: Clear breath sounds bilaterally. No wheezes HEART: Regular rate and rhythm. Normal S1 and S2, without murmurs ABD: Abdomen soft, nontender. Bowel sounds present EXT: No clubbing cyanosis or edema NEURO: AAOX3, follows commands FOLLOW-UP: Follow-up with PCP in 2-3 days and cardiology RECOMMENDATIONS: See Discharge Instructions This case was seen and discussed with my supervising physician. More than 30 minutes spent on discharge process, including evaluation of the patient, discussion with nursing staff, medication reconciliation and follow-up appointments RISHABH ORTIZ Jun 17, 2024 18:38
[2024-06-17] MEDS ORDERED: HYDR12.54 PO (19:16)
== END 2024-06-17 19:00 | disposition home or self-care (01) ==
LOC: EDH 21:07 → EDHIP 22:54 → INTOOBSV 22:54
PROVIDERS: ADMIT Internal Medicine; ATTEND Internal Medicine
DX: R10.13 Epigastric pain (principal); R07.89 Other chest pain; R00.2 Palpitations; I48.91 Unspecified atrial fibrillation; E78.00 Pure hypercholesterolemia, unspecified; E11.9 Type 2 diabetes mellitus without complications; I10 Essential (primary) hypertension; E78.5 Hyperlipidemia, unspecified; Z20.822 Contact with and (suspected) exposure to COVID-19; Z90.49 Acquired absence of other specified parts of digestive tract; Z98.890 Other specified postprocedural states; Z79.899 Other long term (current) drug therapy; Z88.2 Allergy status to sulfonamides; Z88.5 Allergy status to narcotic agent; Z79.84 Long term (current) use of oral hypoglycemic drugs; Z79.01 Long term (current) use of anticoagulants
CPT/HCPCS: 99285; 82550; 80076; 84484 ×3; 80048 ×2; 83880; 83690; 85025 ×2; 87086; 81001; 36415 ×2; 71045; 74177; 93005; 83735; 84100; 85378; 87804 ×2; 82948 ×3; 87635; 76700; G0378 ×20; Q9967; 94664

== ENCOUNTER → 2024-06-20 | Outpatient (CLI) | payer OTHER ==
[~2024-06-20] MED LIST changes: -CEPH500B PO; +GADOTERATE MEGLUMINE 10 MMOL/20 ML VIAL IV ONE; +HYDR12.54 PO
--- NOTE | 2024-06-20 11:26 | HMCIMG ---
MR BRAIN WWO CON HISTORY: Trigeminal neuralgia COMPARISON: None TECHNIQUE: MRI of the brain was performed utilizing multiple pulse sequences in axial, coronal and sagittal planes. Patient was given 16 cc of Clariscan through intravenous route. High-resolution images of the internal auditory canals were obtained. FINDINGS: The ventricles and extraventricular CSF spaces are dilated consistent with cerebral atrophy. Nonspecific white matter changes are seen. There is no midline shift, mass effect or herniation. No subacute hemorrhage is seen. No MR evidence of acute infarct is seen in the diffusion weighted images. Cerebellar tonsils are in normal position. No evidence of mucoperiosteal thickening is seen of the visualized paranasal sinuses. No MR evidence of mass lesion or abnormal enhancement is seen. No evidence of intracanalicular or extracanalicular mass is seen. The visualized portion of VII VIII nerve complexes and V nerves are within normal limits. IMPRESSION: 1. No MR evidence of acute infarct is seen in the diffusion weighted images. No evidence of intracanalicular or extracanalicular mass is seen.
== END | disposition home or self-care (01) ==
LOC: RAH 08:22
PROVIDERS: ATTEND Psychiatry & Neurology Neurology
DX: G50.0 Trigeminal neuralgia (principal)
CPT/HCPCS: 70553; A9575

== ENCOUNTER → 2024-06-30 | Outpatient (CLI) | payer OTHER ==
[~2024-06-30] MED LIST changes: -GADOTERATE MEGLUMINE 10 MMOL/20 ML VIAL IV ONE; +REGADENOSON 0.4 MG/5 ML PF SYG IVP ONE
[2024-06-30] MEDS: REGADENOSON 0.4 MG/5 ML PF SYG IVP ONE (15:42)
--- NOTE | 2024-07-01 11:01 | HMCSR ---
APPROVED REPORT Height: 5 ft 1in Weight: 181 lbs TEST INDICATIONS CAD, Chest Pain The imaging protocol used to acquire images was Rest Tc-99m/stress Tc-99m 1 day Consent: The procedure was explained and understood by the patient. Informerd consent was witnessed Esthela Saenz RN First, low dose rest was performed then high dose stress. RESTING DATA: The resting ekg shows: NSR Rest SPECT myocardial perfusion imaging was performed in supine position 99 minutes following the int ravenous injection of 11.1 mCi of Tc-99 Sestamibi. Time of rest injection: 09:06: Date: 06/30/2024 Time of rest imagin:45: Date: 06/30/2024 PHARMACOLOGIC STRESS: Pharmacologic stress test was performed by injecting regadenoson 0.4 mg IV push followed by the intra venous injection of 31.1 mCi of Tc-99 Sestamibi. Time of stress injection: 11:26: Date: 06/30/2024 Time of stress imagin:53: Date: 06/30/2024 Heart Rate at time of stress injection: 81 bpm. Gated Stress SPECT was performed 87 minutes after stress injection. The images were gated to evaluate regional wall motion and calculate left ventricular ejection fracti on. STRESS DETAILS Reason for Termination: Infusion complete Stress Symptoms: No chest pain or symptoms Max HR Achieved: 106 bpm % of APMHR Achieved: 75 Max Blood Pressure: 160/86 mmHg Stress ECG: NSR,Rate related LBBB Conclusion No ischemia No infarct Diaphragm attenuation artifact LV ejection fraction of 67% Normal LV wall motion Normal LV size at rest and stress No evidence of increased lung
== END | disposition home or self-care (01) ==
LOC: SHCH 08:23
PROVIDERS: ATTEND Internal Medicine Cardiovascular Disease
DX: I44.7 Left bundle-branch block, unspecified (principal); I25.10 Atherosclerotic heart disease of native coronary artery without angina pectoris; R07.9 Chest pain, unspecified
CPT/HCPCS: 78452; 93017; J2785; A9500 ×2

== ENCOUNTER 2024-07-21 03:12 | Emergency (ER) | payer OTHER ==
[~2024-07-21] VITALS: Ht 154.9 cm; Wt 80.7 kg
[~2024-07-21 03:12] MED LIST changes: -REGADENOSON 0.4 MG/5 ML PF SYG IVP ONE
[2024-07-21 03:47] LABS: BASOPHILS # (AUTO) 0.02 K/uL (0.00-0.20); BASOPHILS % (AUTO) 0.2 % (0.0-5.0); EOSINOPHILS # (AUTO) 0.08 K/uL (0.00-0.70); EOSINOPHILS % (AUTO) 0.7 % (0.0-8.0); HEMATOCRIT 38.7 % (36-48); IMMATURE GRANULOCYTE ABSOLUTE 0.03 K/uL (0-1); MEAN CORPUSCULAR HEMOGLOBIN 30.4 pg (27.0-33.0); MEAN CORPUSCULAR HGB CONC 33.3 g/dL (32.0-36.0); MEAN CORPUSCULAR VOLUME 91.3 fL (79-99); MONOCYTES # (AUTO) 0.9 K/uL (0.1-1.0); MONOCYTES % (AUTO) 7.9 % (3.0-13.0); NEUTROPHILS # (AUTO) 6.2 K/uL (1.8-7.7); NEUTROPHILS % (AUTO) 54.9 % (40.0-77.0); PLATELET COUNT (AUTO) 213 K/uL (130-400); RED BLOOD CELL COUNT(AUTO) 4.24 MIL/uL (4.00-5.50); RED CELL DISTRIBUTION WIDTH 12.6 % (11.0-15.5); WHITE BLOOD COUNT (AUTO) 11.2 K/uL (4.8-10.8)
[2024-07-21 03:56] LABS: CREATININE 0.8 mg/dL (0.5-1.0); POTASSIUM 3.6 mmol/L (3.5-5.1)
[2024-07-21] MEDS: ondanSETRON 4MG INJ IVP ONE (04:03)
[2024-07-21] MEDS: FAMOTIDINE 20MG VIAL IV ONE (04:03)
[2024-07-21 04:20] LABS: ALBUMIN 3.8 g/dL (3.5-5.0); BILIRUBIN,DIRECT 0.1 mg/dL (0.0-0.3); BILIRUBIN,TOTAL 0.7 mg/dL (0.2-1.0); TOTAL PROTEIN, SERUM 7.3 g/dL (6.0-8.3)
[2024-07-21 04:24] LABS: B-TYPE NATRIURETIC PEPTIDE 15 pg/mL (0-100)
[2024-07-21] MEDS ORDERED: IOHEXOL-350 75 ML VIAL IV ONE (04:36)
--- NOTE | 2024-07-21 05:00 | ERN ---
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 Patient reports that she recently had a diarrheal illness with generalized abdominal pains and multiple loose stools (non-bloody) daily. Patient took imodium with some relief. Yesterday she developed epigastric pain with bloating after eating an apple. She has not eaten since. No fevers. Nausea without vomiting. No cough or CP. Pain is located in the epigastrium and radiates to bilateral lower ribs. She reports a history of gastritis. She does not have a gallbladder. Allergies: Coded Allergies: Sulfa (Sulfonamide Antibiotics) (Unverified Allergy, Unknown, 11/30/20) azithromycin (Unverified Allergy, Unknown, 11/30/20) codeine (Unverified Allergy, Unknown, 11/30/20) prednisone (Unverified Allergy, Unknown, 11/30/20) Home Meds Reported Medications Hydrochlorothiazide (Hydrochlorothiazide) 12.5 Mg Tablet, 12.5 MG PO DAILY, TAB 06/17/24 Losartan Potassium (Losartan Potassium) 50 Mg Tablet, 1 TAB PO HS 06/02/23 Rivaroxaban (Xarelto) 20 Mg Tablet, 1 TAB PO DAILY 06/02/23 Rosuvastatin Calcium (Rosuvastatin Calcium) 40 Mg Tablet, 1 TAB PO DAILY 06/02/23 Metoprolol Succinate (Metoprolol Succinate) 50 Mg Tab.er.24h, 25 TAB PO DAILY 06/02/23 Metformin HCl (Metformin HCl) 500 Mg Tablet, 1 TAB PO BID 06/02/23 Past Medical History Past Medical History: A-Fib, Diabetes-Type II, High Cholesterol, Heart Disease, Hypertension Medical History Other: GALLSTONES Past Surgical History: Cholecystectomy, Other Surgical History Other: BACK SX;FUSION Family History Family History: Negative Social History Social History: Negative, Lives with family Female( History) History: Not Applicable ROS Dictation CONSTITUTIONAL: No chills, no fever, no weakness, no diaphoresis, no malaise. HEAD/FACE: No signs of trauma. EENT: No eye pain, no blurred vision, no tearing, no double vision, no ear pain, no ear discharge, no nose pain, no nasal congestion, no throat pain, no throat swelling, no mouth pain. RESPIRATORY: No cough, no orthopnea, no SOB, no stridor, no wheezing. CARDIOVASCULAR: No chest pain, no edema, no palpitations, no syncope. GASTROINTESTINAL/ABDOMINAL: Epigastric pain with nausea and bloating GENITOURINARY: No abnormal discharge, no dysuria, no frequent urination, no hematuria. No complaints of pain in the genitals. MUSCULOSKELETAL: No back pain, no gout, no joint pain, no joint swelling, no muscle pain, no muscle stiffness, no neck pain. INTEGUMENTARY: No change in color, no change in hair/nails, no dryness, no lesion, no lumps, no rash. NEUROLOGICAL/PSYCH: No anxiety, not depressed, no emotional problem, no headache, no numbness, no pre-existing deficit, no history of seizures, no tremors, no weakness. HEMATOLOGIC/LYMPHATIC: Not anemic, no history of blood clots, no apparent bleeding, no bruising, glands not swollen. All Systems Negative, Except as Noted. Physical Exam Physical Exam Dictation VITAL SIGNS: Reviewed. GENERAL APPEARANCE: Alert, oriented x3, no acute distress EYES: PERRL, pink conjunctivas, eyelid no trauma, anterior chamber clear. EARS: Pinnas intact and no signs of trauma or erythema. Ear canals clear and no discharge. TMs no erythema. NOSE: No discharge, no bleeding. OROPHARYNX: Mouth normal, teeth no caries, tongue pink. Pharynx clear, no erythema. Tonsils no exudates, no abscesses noted. Mucous membrane moist. NECK: Supple, non-tender, no thyromegaly, no masses, no JVD, no bruits. BREAST: Deferred. CHEST: No tenderness, no crepitus, no paradoxical movement, no retractions. LUNGS: Clear, well-ventilated, symmetric, no rales, no wheezing, no rhonchi, no stridor, good breath sounds bilaterally. HEART: Regular rate, regular rhythm, no murmur, no gallops. VASCULAR: No peripheral edema. ABDOMEN: Soft, positive bowel sounds, nondistended, no guarding, nontender, no rebound, no masses no hepatomegaly, no splenomegaly, no Dickson's sign, no h ernias. RECTAL: Deferred. GENITAL: Deferred. NEUROLOGICAL: Normal speech, gross motor function intact, gross sensory functi on intact. MUSCULOSKELETAL: Neck nontender, full range of motion, back nontender, full range of motion. EXTREMITIES: Nontender, full range of motion. SKIN: Color pink, dry, no turgor, no rash, no lacerations, no abrasions, no contusions. LYMPHATICS: Deferred. Results Laboratory and Microbiology Lab and Micro Result Laboratory Tests Test 07/21/24 03:23 07/21/24 04:02 White Blood Count 11.2 K/uL (4.8-10.8) H Red Blood Count 4.24 MIL/uL (4.00-5.50) Hemoglobin 12.9 g/dL (12.0-16.0) Hematocrit 38.7 % (36-48) Mean Corpuscular Volume 91.3 fL (79-99) Mean Corpuscular Hemoglobin 30.4 pg (27.0-33.0) Mean Corpuscular Hemoglobin Concent 33.3 g/dL (32.0-36.0) Red Cell Distribution Width 12.6 % (11.0-15.5) Platelet Count 213 K/uL (130-400) Mean Platelet Volume 9.8 fL (7.5-10.5) Immature Granulocyte % (Auto) 0.3 % (0-1) Neutrophils (%) (Auto) 54.9 % (40.0-77.0) Lymphocytes (%) (Auto) 36.0 % (21.0-51.0) Monocytes (%) (Auto) 7.9 % (3.0-13.0) Eosinophils (%) (Auto) 0.7 % (0.0-8.0) Basophils (%) (Auto) 0.2 % (0.0-5.0) Neutrophils # (Auto) 6.2 K/uL (1.8-7.7) Lymphocytes # (Auto) 4.0 K/uL (1.0-4.8) Monocytes # (Auto) 0.9 K/uL (0.1-1.0) Eosinophils # (Auto) 0.08 K/uL (0.00-0.70) Basophils # (Auto) 0.02 K/uL (0.00-0.20) Absolute Immature Granulocyte (auto 0.03 K/uL (0-1) Nucleated Red Blood Cells 0.0 % (0.0-0.19) Sodium Level 131 mmol/L (136-145) L Potassium Level 3.6 mmol/L (3.5-5.1) Chloride Level 92 mmol/L (101-111) L Carbon Dioxide Level 36 mmol/L (21-32) H Blood Urea Nitrogen 15 mg/dL (7-18) Creatinine 0.8 mg/dL (0.5-1.0) Glomerular Filtration Rate Calc 75 mL/min (>90) Random Glucose 113 mg/dL (70-105) H Total Calcium 9.4 mg/dL (8.5-10.1) Total Bilirubin 0.7 mg/dL (0.2-1.0) Direct Bilirubin 0.1 mg/dL (0.0-0.3) Aspartate Amino Transf (AST/SGOT) 27 U/L (10-37) Alanine Aminotransferase (ALT/SGPT) 23 U/L (12-78) Alkaline Phosphatase 64 U/L (50-136) Total Creatine Kinase 62 U/L (21-232) # B-Type Natriuretic Peptide 15 pg/mL (0-100) Total Protein 7.3 g/dL (6.0-8.3) Albumin 3.8 g/dL (3.5-5.0) Lipase 42 U/L (16-77) Troponin I < 0.05 ng/mL (0.00-0.05) Labs Reviewed?: Yes MDM CC: epigastric pain Historian: patient Limitations by social determinants of health: None Comorbidities: Atrial fibrillation, diabetes type 2, DLD, CAD, HTN, cholecystectomy Ddx : Biliary pathology, liver disease, gastritis, peptic ulcer disease, gastroenteritis, surgical pathology, other. Vital signs: Stable, remained stable in the ER Clinical exam: Soft nontender nondistended abdomen. EKG (independently interpreted by me): Sinus rhythm, rate of 79, normal axis, right bundle branch block morphology, good R-wave progression. No ischemia. Labs (independently ordered and interpreted by me ): CBC no leukocytosis or anemia. Chemistry shows stable electrolytes, sodium 131 and chloride 92 consistent with mild dehydration. Liver enzymes are normal. CK is normal. Troponin is normal. BNP normal. Lipase normal. CXR (independently interpreted by me ): No cardiomegaly, no pleural effusions, no focal infiltrates, no vascular congestion, no pneumothorax. Hardware in the cervical spine present. CT abdomen and pelvis with contrast ( independently interpreted by me ): Some stomach wall thickening. Pancreas intact. Liver appears intact. Lower lung huffman intact. No free air or obvious surgical pathology. Kidneys appear normal. GI tract shows no signs of obstruction, no obvious pathology. Treatment in ED: 1 L normal saline, 4 mg IV Zofran, 20 mg IV famotidine Plan: I offerred the patient admission for GI consultation, but the patient does not want to stay in the hospital. She had a colonoscopy and endoscopy within the past few months. She prefers to go home and manage her symptoms with diet. She took pepcid in the past, so I recommended that she restart this medication for a brief period if she thinks she needs it. She'll modify her diet and follow up with her PCP. Patient care was transferred to Dr. Ferrer at shift change ED Course Orders Procedure Category Date Status Time Vital Signs Per CPOE 07/21/24 Transmitted Routine 03:14 B-Type Natriuretic LAB 07/21/24 Complete Peptide 03:14 Chest 1vw RAD 07/21/24 Taken 03:14 12 Lead Ekg Tracing- EKG 07/21/24 Complete Technical 03:14 Oxygen By Nc/Pulse Ox CPOE 07/21/24 Transmitted 03:14 Maintain Iv CPOE 07/21/24 Transmitted 03:14 Iv Insertion CPOE 07/21/24 Transmitted 03:14 Cardiac Monitoring CPOE 07/21/24 Transmitted 03:14 Pulse Oximetry With CPOE 07/21/24 Transmitted Vs And Prn 03:14 Cbc With Differential LAB 07/21/24 Complete 03:14 Activity: Br W/Brp CPOE 07/21/24 Transmitted With Assist 03:14 Creatine Kinase, Total LAB 07/21/24 Complete 03:14 Troponin Poc Order LAB 07/21/24 Complete Only 03:14 Basic Metabolic Panel LAB 07/21/24 Complete 03:14 Lipase LAB 07/21/24 Complete 03:14 Famotidine 20mg Vial PHA 07/21/24 Complete (Pepcid 20mg Vial) 04:00 Ondansetron 4mg Inj PHA 07/21/24 Complete (Zofran 4mg Inj) 04:00 Hepatic Function Panel LAB 07/21/24 Complete 03:53 Ct Abdomen/Pelvis CT 07/21/24 Taken W/Contrast 03:53 Iohexol (Omnipaque) PHA 07/21/24 Complete 04:36 0.9%Nacl 1000ml (Ns PHA 07/21/24 Complete 1000ml) 05:30 Current Medications Medications (Trade) Dose Ordered Sig/Walter Route PRN Reason Start Time Stop Time Status Last Admin Dose Admin Famotidine (Pepcid 20mg Vial) 20 mg ONCE ONCE IV 07/21/24 04:00 07/21/24 04:01 DC 07/21/24 04:03 Iohexol (Omnipaque) 75 ml STK-MED ONCE IV 07/21/24 04:36 07/21/24 04:42 DC Ondansetron HCl (zoFRAN 4MG INJ) 4 mg ONCE ONCE IVP 07/21/24 04:00 07/21/24 04:01 DC 07/21/24 04:03 Sodium Chloride 1,000 ml @ 0 mls/hr ONCE ONCE IV 07/21/24 05:30 07/21/24 05:31 DC 07/21/24 05:29 Vital Signs Date Time Temp Pulse Resp B/P (MAP) Pulse Ox O2 Delivery O2 Flow Rate FiO2 07/21/24 07:37 98.1 84 16 139/61 100 Room Air* 0 21 07/21/24 04:32 98.4 76 20 134/47 99 Room Air* 0 21 07/21/24 03:32 98.4 84 18 151/62 98 Room Air* 0 07/21/24 03:13 96.4 91 16 146/76 100 Room Air DX & DISP Disposition: Discharge Departure Impression: Primary Impression: Gastritis Condition: Stable Additional Instructions: Your symptoms may be due to gastritis or an ulcer. There are no emergenct or surgical findings on your work up here today. Your vital signs are stable today. Your labwork (CBC, BMP, liver function panel, lipast, CK, troponin, BNP) shows some mild dehydration, but is otherwise unremarkable. The CT scan of your abdomen & pelvis with contrast shows some mild gastric wall thickening, consistent with gastritis. Otherwise, there are no dangerous findings in the CT scan. As we discussed, try to manage your symptoms with dietary modification. This can reduce inflammation and symptoms Such as pain, nausea, and bloating. Foods to include in your diet: low acid fruits such as bananas pears, and melons. Include non spicy vegetables such as carrots, spinach, broccoli, has a kidney, and sweet potatoes. Increase lean proteins such as skin less poultry, f gin, and eggs. Increase healthy fats such as olive oil, avocado, and nuts. Try herbal teas such as chamomile, dunia, or licorice root T. Foods to avoid in your diet: Avoid acidic foods, spicy foods, fried and fatty foods, caffeinated or carbonated beverages, alcohol, dairy, and excessive salt and sugar. Eat frequent, smaller meals throughout the day. Avoid large meals to reduce stomach acid production. Stay hydrated. Do not eat 2-3 hours before bed. Limit NSAIDs such as naproxen, ibuprofen, and aspirin. If dietary modifications do not help with your symptoms, you can take 20 mg of famotidine ( Pepcid ) once daily for two weeks to one month. This medication is [id number]-[id number]. If you continue with symptoms after a few days, I recommend that you follow up with your primary doctor. Please return to the emergency department if you have any concerns. Referrals: CANDIS ACOSTA MD (PCP) HARIKA REDMAN DO Jul 21, 2024 05:00 YOSI FERRER MD Jul 21, 2024 09:37
[2024-07-21] MEDS: 0.9%NACL 1000ML 1,000 ML IV ONE (05:29)
--- NOTE | 2024-07-21 07:01 | EKG ---
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
[2024-07-21 07:37] VITALS: BP 139/61; PULSE 84; RESP 16; TEMP 98; O2SAT 100
--- NOTE | 2024-07-21 10:07 | HMCIMG ---
CT ABDOMEN/PELVIS W/CONTRAST HISTORY: Epigastric pain COMPARISON: 06/16/2024 TECHNIQUE: Multiple sequential axial images of the abdomen and pelvis were obtained from the dome of the diaphragm through symphysis pubis. Patient was given 75 cc of Omnipaque through intravenous route. Oral contrast was not given. FINDINGS: No pleural effusion is seen bilaterally. There is no evidence of parenchymal disease or pulmonary nodule of the visualized lower lungs. Degenerative changes of the thoracolumbar spine are present. The heart is not enlarged. There is L4/S1 posterior spinal fusion. Postlaminectomy changes are seen. This is causing artifacts limiting evaluation. Postcholecystectomy changes are seen. Liver measured 13.3 cm. Postcholecystectomy changes are seen. If there is clinical suspicion for pancreatitis, lipase correlation may be helpful. There is diverticulosis. The liver, spleen, adrenal glands and pancreas are unremarkable. There is no evidence of hydronephrosis bilaterally. No evidence of renal stone is seen. Fecal material is seen in the colon. There are normal size retroperitoneal and mesenteric lymph nodes. No ascites is seen. Atherosclerotic changes are present. Pelvic sidewalls are symmetric bilaterally. Bladder is well distended without wall thickening. IMPRESSION: 1. Diverticulosis. Fecal material is seen in the colon. CT was performed with one or more following dose reduction techniques: automated exposure control, adjustment of the mA and kv according to patient's size, or use of a iterative reconstruction technique.
--- NOTE | 2024-07-21 10:26 | HMCIMG ---
CHEST 1VW HISTORY: Chest pain COMPARISON: 06/16/2024 FINDINGS: A frontal projection of the chest was obtained. No acute pulmonary infiltrates is seen. The heart is normal in size. All the lines and tubes are again seen in place. Aortic calcifications are seen. Postop changes are seen of cervical spine. IMPRESSION: 1. No acute pulmonary infiltrate is seen.
== END 2024-07-21 10:00 | disposition home or self-care (01) ==
LOC: EDH 03:12
DX: K29.70 Gastritis, unspecified, without bleeding (principal); I48.91 Unspecified atrial fibrillation; E11.9 Type 2 diabetes mellitus without complications; E78.00 Pure hypercholesterolemia, unspecified; I10 Essential (primary) hypertension; Z79.01 Long term (current) use of anticoagulants; Z79.84 Long term (current) use of oral hypoglycemic drugs; Z79.899 Other long term (current) drug therapy; Z88.1 Allergy status to other antibiotic agents; Z88.2 Allergy status to sulfonamides; Z88.5 Allergy status to narcotic agent; Z88.8 Allergy status to other drugs, medicaments and biological substances; Z90.49 Acquired absence of other specified parts of digestive tract
CPT/HCPCS: 99285; 74177; 96374; 96361; 71045; 96375; 82550; 80076; 84484; 80048; 83880; 83690; 85025; 36415; 93005; J3490; J7030; J2405; Q9967

== ENCOUNTER 2024-08-09 19:13 | Emergency (ER) | payer OTHER ==
[~2024-08-09] VITALS: Ht 154.9 cm; Wt 80.7 kg
[2024-08-09 19:58] LABS: APPEARANCE,URINE CLEAR (CLEAR); BILIRUBIN,URINE NEGATIVE (NEGATIVE); COLOR,URINE COLORLESS (YELLOW); GLUCOSE, URINE (UA) NEGATIVE (NEGATIVE); KETONES,URINE NEGATIVE (NEGATIVE); LEUKOCYTE ESTERASE ,URINE 500 Leu/uL (NEGATIVE); NITRATE,URINE NEGATIVE (NEGATIVE); OCCULT BLOOD,URINE NEGATIVE (NEGATIVE); PH,URINE 6.5 (5.0-8.0); PROTEIN,URINE NEGATIVE (NEGATIVE); UROBILINOGEN,URINE 0.2 mg/dL (0.2-1.0)
[2024-08-09 20:00] LABS: ADD UA MICROSCOPIC YES
[2024-08-09 20:04] LABS: BACTERIA,URINE RARE /HPF (None Seen); SQUAMOUS EPITHELIAL CELL,UR FEW /HPF (0-2); UNCLASSIFIED CRYSTAL 1 /HPF (None Seen); WBC,URINE 26-50 /HPF (0-1)
[2024-08-09 20:09] LABS: BASOPHILS # (AUTO) 0.02 K/uL (0.00-0.20); BASOPHILS % (AUTO) 0.2 % (0.0-5.0); EOSINOPHILS # (AUTO) 0.05 K/uL (0.00-0.70); EOSINOPHILS % (AUTO) 0.6 % (0.0-8.0); IMMATURE GRANULOCYTE ABSOLUTE 0.02 K/uL (0-1); LYMPHOCYTES # (AUTO) 3.1 K/uL (1.0-4.8); LYMPHOCYTES % (AUTO) 37.5 % (21.0-51.0); MEAN CORPUSCULAR HEMOGLOBIN 30.1 pg (27.0-33.0); MEAN CORPUSCULAR HGB CONC 32.8 g/dL (32.0-36.0); MEAN CORPUSCULAR VOLUME 91.8 fL (79-99); MONOCYTES # (AUTO) 0.8 K/uL (0.1-1.0); MONOCYTES % (AUTO) 9.4 % (3.0-13.0); NEUTROPHILS # (AUTO) 4.3 K/uL (1.8-7.7); NEUTROPHILS % (AUTO) 52.1 % (40.0-77.0); PLATELET COUNT (AUTO) 218 K/uL (130-400); RED BLOOD CELL COUNT(AUTO) 3.16 MIL/uL (4.00-5.50); RED CELL DISTRIBUTION WIDTH 13.2 % (11.0-15.5); WHITE BLOOD COUNT (AUTO) 8.3 K/uL (4.8-10.8)
[2024-08-09 20:18] LABS: POTASSIUM 3.8 mmol/L (3.5-5.1)
[2024-08-09 20:27] LABS: ALBUMIN 3.1 g/dL (3.5-5.0); BILIRUBIN,DIRECT 0.1 mg/dL (0.0-0.3); BILIRUBIN,TOTAL 0.4 mg/dL (0.2-1.0); TOTAL PROTEIN, SERUM 6.2 g/dL (6.0-8.3)
--- NOTE | 2024-08-09 20:31 | EKG ---
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
[2024-08-09] MEDS: LIDOCAINE HCL 2% VISCOUS 15 ML UDCUP PO ONE (20:38)
[2024-08-09] MEDS: PANTOPrazole 40 MG/VIAL IVP ONE (20:38)
[2024-08-09] MEDS: ketOROlac 15MG/ML VIAL (15MG/ML) IV ONE (20:38)
[2024-08-09] MEDS: 0.9%NACL 1000ML 1,000 ML IV ONE (20:38)
[2024-08-09] MEDS: MAG/ALUM/SIMETH 30 ML UDCUP PO ONE (20:38)
[2024-08-09] MEDS: DICYCLOMINE HCL 10 MG/5 ML ML PO ONE (20:38)
--- NOTE | 2024-08-09 21:10 | HMCIMG ---
CT ABDOMEN/PELVIS W/O CONTRAST CLINICAL HISTORY: right upper abd pain COMPARISON: 07/21/2024 TECHNIQUE: Sequential axial images of abdomen and pelvis without contrast and with sagittal and coronal reconstructions. CT was performed with one or more of the following dose reduction techniques: automated exposure control, adjustment of the mA and/or kV according to patient size, or use of iterative reconstruction technique FINDINGS: Lung bases are clear. Liver and spleen unremarkable gallbladder surgically absent. The pancreas adrenal glands and kidneys and bladder are unremarkable. There is no identified bowel obstruction. There is no bulky abdominal or retroperitoneal lymphadenopathy. The uterus appears unremarkable. The appendix is normal. There is no free air or free fluid. The bony structures are stable with changes from prior lumbar spinal fusion. IMPRESSION: Change of prior cholecystectomy and lumbar spinal fusion. There are no acute findings
--- NOTE | 2024-08-09 21:27 | ERN ---
ED Note History of Present Illness Stated Complaint: ABD PAIN Chief Complaint: Abdominal Pain Time Seen by MD: 19:22 Time Seen by Midlevel: 19:22 Dictation: The patient is a 79-year-old female with a history of cholecystectomy, diabetes, hypertension, AFib on Xarelto who presents to the emergency department with complaints of right and left upper abdominal pain onset one week ago. Patient denies any nausea or vomiting. Denies any fevers. Reports nonbloody loose stools. Allergies: Coded Allergies: Sulfa (Sulfonamide Antibiotics) (Unverified Allergy, Unknown, 11/30/20) azithromycin (Unverified Allergy, Unknown, 11/30/20) codeine (Unverified Allergy, Unknown, 11/30/20) prednisone (Unverified Allergy, Unknown, 11/30/20) Home Meds Reported Medications Hydrochlorothiazide (Hydrochlorothiazide) 12.5 Mg Tablet, 12.5 MG PO DAILY, TAB 06/17/24 Losartan Potassium (Losartan Potassium) 50 Mg Tablet, 1 TAB PO HS 06/02/23 Rivaroxaban (Xarelto) 20 Mg Tablet, 1 TAB PO DAILY 06/02/23 Rosuvastatin Calcium (Rosuvastatin Calcium) 40 Mg Tablet, 1 TAB PO DAILY 06/02/23 Metoprolol Succinate (Metoprolol Succinate) 50 Mg Tab.er.24h, 25 TAB PO DAILY 06/02/23 Metformin HCl (Metformin HCl) 500 Mg Tablet, 1 TAB PO BID 06/02/23 Past Medical History Past Medical History: A-Fib, Diabetes-Type II, High Cholesterol, Heart Disease, Hypertension Additional Past Medical Hx: GALLSTONES, GASTRITIS Surgical History: Cholecystectomy, Other Surgical History Other: BACK SX;FUSION Family History: Negative Social History: Negative, Lives with family History: Not Applicable RN Note Reviewed/Agreed w/PFSH: Yes Review of System Dictation Constitutional: Negative for fever,chills, and weight loss Eyes: Negative for injury, pain,redness, and discharge ENT: Negative for injury,pain or swelling Cardiovascular: Negative for chest pain, palpitations, and edema Respiratory: Negative for shortness of breath, cough, and wheezing, Abdomen/GI: Negative for , nausea, vomiting, diarrhea, and constipation positive for abdominal pain Back: Negative for injury and pain : Negative for injury, bleeding and discharge MS/Extremity: Negative for injury and deformity Skin: Negative for rash, and discoloration Neuro: Negative for headache, weakness, numbness, tingling, and seizure Psych: Negative for suicide ideation, homicidal ideation, and hallucinations Initial Vital Sign VS Vital Signs Date Time Temp Pulse Resp B/P (MAP) Pulse Ox O2 Delivery O2 Flow Rate FiO2 08/09/24 19:14 98.4 108 20 183/79 99 Room Air 08/09/24 20:00 0 21 Physical Exam Dictation Vital Signs reviewed General Appearance: Alert, oriented x 3, no acute distress, well developed, nourished. Head and Face: non-traumatic. Eyes: PERRL, pink conjunctivas, eyelid no trauma, anterior chamber with arcus senilis. Ears: Pinnas intact and no signs of trauma or erythema ear canals clear and no discharge TM no erythema Nose: No discharge, no bleeding. Oropharynx: Mouth normal, tongue pink. pharynx clear,no erythema, tonsils no exudates, no abscesses noted, mucous membrane moist Neck: Supple, non-tender, no thyromegaly, no masses, no JVD, no bruits Breast:Deferred Chest:No tenderness, no crepitus, no paradoxical movement, no retractions Lungs:Clear, well-ventilated, symmetric, no rales, no wheezing, no rhonchi, no stridor, good breath sounds bilaterally Heart: Regular rate, regular rhythm, no murmur, no gallops Vascular: no peripheral edema, Abdomen: Soft, positive bowel sounds, nondistended, no guarding, nontender, no rebound, no masses no hepatomegaly, no splenomegaly, no Dickson's sign, no hernias. Rectal: Deferred Genital: Deferred Neurological: Normal speech, motor function intact, sensory function intact Musculoskeletal: Neck nontender, full range of motion, back nontender, full range of motion, Extremities: nontender, full range of motion Skin: Color pink, dry, no turgor, no rash, no lacerations, no abrasions, no contusions. Lymphatic: Deferred Results (Laboratory/Radiology) Laboratory/Radiology Laboratory Tests Test 08/09/24 19:35 08/09/24 19:55 Urine Color COLORLESS (YELLOW) Urine Appearance CLEAR (CLEAR) Urine pH 6.5 (5.0-8.0) Urine Specific [place] 1.009 (1.001-1.031) Urine Protein NEGATIVE mg/dL (NEGATIVE) Urine Glucose (UA) NEGATIVE mg/dL (NEGATIVE) Urine Ketones NEGATIVE mg/dL (NEGATIVE) Urine Occult Blood NEGATIVE (NEGATIVE) Urine Nitrate NEGATIVE (NEGATIVE) Urine Bilirubin NEGATIVE mg/dL (NEGATIVE) Urine Urobilinogen 0.2 mg/dL (0.2-1.0) Urine Leukocyte Esterase 500 Nawaf/uL (NEGATIVE) H Urine RBC 2-5 /HPF (0-1) H Urine WBC 26-50 /HPF (0-1) H Urine Squamous Epithelial Cells FEW /HPF (0-2) Urine Other Crystals (Auto) 1 /HPF (None Seen) Urine Bacteria RARE /HPF (None Seen) White Blood Count 8.3 K/uL (4.8-10.8) Red Blood Count 3.16 MIL/uL (4.00-5.50) L Hemoglobin 9.5 g/dL (12.0-16.0) L Hematocrit 29.0 % (36-48) L Mean Corpuscular Volume 91.8 fL (79-99) Mean Corpuscular Hemoglobin 30.1 pg (27.0-33.0) Mean Corpuscular Hemoglobin Concent 32.8 g/dL (32.0-36.0) Red Cell Distribution Width 13.2 % (11.0-15.5) Platelet Count 218 K/uL (130-400) Mean Platelet Volume 10.0 fL (7.5-10.5) Immature Granulocyte % (Auto) 0.2 % (0-1) Neutrophils (%) (Auto) 52.1 % (40.0-77.0) Lymphocytes (%) (Auto) 37.5 % (21.0-51.0) Monocytes (%) (Auto) 9.4 % (3.0-13.0) Eosinophils (%) (Auto) 0.6 % (0.0-8.0) Basophils (%) (Auto) 0.2 % (0.0-5.0) Neutrophils # (Auto) 4.3 K/uL (1.8-7.7) Lymphocytes # (Auto) 3.1 K/uL (1.0-4.8) Monocytes # (Auto) 0.8 K/uL (0.1-1.0) Eosinophils # (Auto) 0.05 K/uL (0.00-0.70) Basophils # (Auto) 0.02 K/uL (0.00-0.20) Absolute Immature Granulocyte (auto 0.02 K/uL (0-1) Nucleated Red Blood Cells 0.0 % (0.0-0.19) Sodium Level 131 mmol/L (136-145) L Potassium Level 3.8 mmol/L (3.5-5.1) Chloride Level 95 mmol/L (101-111) L Carbon Dioxide Level 32 mmol/L (21-32) Blood Urea Nitrogen 18 mg/dL (7-18) Creatinine 1.0 mg/dL (0.5-1.0) Glomerular Filtration Rate Calc 57 mL/min (>90) Random Glucose 110 mg/dL (70-105) H Total Calcium 8.6 mg/dL (8.5-10.1) Total Bilirubin 0.4 mg/dL (0.2-1.0) Direct Bilirubin 0.1 mg/dL (0.0-0.3) Aspartate Amino Transf (AST/SGOT) 24 U/L (10-37) Alanine Aminotransferase (ALT/SGPT) 21 U/L (12-78) Alkaline Phosphatase 46 U/L (50-136) L Troponin I High Sensitivity 5 ng/L (4-50) Total Protein 6.2 g/dL (6.0-8.3) Albumin 3.1 g/dL (3.5-5.0) L Lipase 37 U/L (16-77) REASON: right upper abd pain ORDERING PHYSICIAN: DARNELL RAMOS PROCEDURE: ABD PEL WO - CT ABDOMEN/PELVIS W/O CONTRAST CT ABDOMEN/PELVIS W/O CONTRAST CLINICAL HISTORY: right upper abd pain COMPARISON: 07/21/2024 TECHNIQUE: Sequential axial images of abdomen and pelvis without contrast and with sagittal and coronal reconstructions. CT was performed with one or more of the following dose reduction techniques: automated exposure control, adjustment of the mA and/or kV according to patient size, or use of iterative reconstruction technique FINDINGS: Lung bases are clear. Liver and spleen unremarkable gallbladder surgically absent. The pancreas adrenal glands and kidneys and bladder are unremarkable. There is no identified bowel obstruction. There is no bulky abdominal or retroperitoneal lymphadenopathy. The uterus appears unremarkable. The appendix is normal. There is no free air or free fluid. The bony structures are stable with changes from prior lumbar spinal fusion. IMPRESSION: Change of prior cholecystectomy and lumbar spinal fusion. There are no acute findings Labs Reviewed?: Yes EKG: (+) rhythm (Sinus rhythm) EKG Comment: Date:08/09/2024 Time:1941 Ventricular rate:82 WA interval:177 QRS duration:132 QT/QTc:475 EKG interpretation: Sinus rhythm Reviewed by ED Attending no STEMI ED Course ED Course Orders Procedure Category Date Status Time Cbc With Differential LAB 08/09/24 Complete 19:34 Troponin I High LAB 08/09/24 Complete Sensitivity 19:34 Urinalysis Profile LAB 08/09/24 Complete 19:34 12 Lead Ekg Tracing- EKG 08/09/24 Complete Technical 19:34 0.9%Nacl 1000ml (Ns PHA 08/09/24 Complete 1000ml) 20:00 Lidocaine Hcl 2% PHA 08/09/24 Complete Viscous (Lidocaine Hcl 20:00 Mag/Alum/Simeth 30ml PHA 08/09/24 Complete (Maalox Plus 30ml) 20:00 Pantoprazole 40mg Inj PHA 08/09/24 Complete (Protonix 40mg Inj 20:00 Dicyclomine Hcl PHA 08/09/24 Complete (Bentyl 10mg/5ml 20:00 Lipase LAB 08/09/24 Complete 19:34 Basic Metabolic Panel LAB 08/09/24 Complete 19:34 Hepatic Function Panel LAB 08/09/24 Complete 19:34 Ketorolac PHA 08/09/24 Complete Tromethamine 15mg/Ml 20:00 Culture Urine JULIANA 08/09/24 Logged 20:01 Ct Abdomen/Pelvis W/O CT 08/09/24 Resulted Contrast 20:38 Ceftriaxone 1g Vial PHA 08/09/24 Complete (Rocephine 1g Inj) 21:00 Current Medications Medications (Trade) Dose Ordered Sig/Walter Route PRN Reason Start Time Stop Time Status Last Admin Dose Admin Al Hydroxide/Mg Hydroxide (MAALox PLUS 30ML) 30 ml ONCE ONCE PO 08/09/24 20:00 08/09/24 20:01 DC 08/09/24 20:38 Ceftriaxone Sodium (ROCEphine 1G INJ) 1 gm ONCE ONCE IVPB 08/09/24 21:00 08/09/24 21:01 DC Dicyclomine HCl (Bentyl 10mg/5ml Syrup) 10 mg ONCE ONCE PO 08/09/24 20:00 08/09/24 20:01 DC 08/09/24 20:38 Ketorolac Tromethamine (toRADol) 15 mg ONCE ONCE IV 08/09/24 20:00 08/09/24 20:01 DC 08/09/24 20:38 Lidocaine HCl (Lidocaine HCl 2% Viscous) 10 ml ONCE ONCE PO 08/09/24 20:00 08/09/24 20:01 DC 08/09/24 20:38 Pantoprazole Sodium (PROTonix 40MG INJ) 40 mg ONCE ONCE IVP 08/09/24 20:00 08/09/24 20:01 DC 08/09/24 20:38 Sodium Chloride 1,000 ml @ 0 mls/hr ONCE ONCE IV 08/09/24 20:00 08/09/24 20:01 DC 08/09/24 20:38 Vital Signs Date Time Temp Pulse Resp B/P (MAP) Pulse Ox O2 Delivery O2 Flow Rate FiO2 08/09/24 21:00 78 17 129/49 96 Room Air* 0 21 08/09/24 20:00 83 19 135/57 97 Room Air* 0 21 08/09/24 19:14 98.4 108 20 183/79 99 Room Air Medical Decision Making MDM The patient is a 79-year-old female with a history of cholecystectomy, diabetes, hypertension, AFib on Xarelto who presents to the emergency department with complaints of right and left upper abdominal pain onset one week ago. Patient denies any nausea or vomiting. Denies any fevers. Reports nonbloody loose stools. CBC showed no leukocytosis, mild normocytic anemia slightly decreased from previous visit. Chemistry showed mild hyponatremia, hypochloremia, normal liver enzymes, normal liver enzymes. Urinalysis showed some leukocyte esterase. Patient was treated with the antibiotics. CT revealed no acute pathology. Patient reports improving in pain. Labs and imaging discussed with the patient who agrees to be discharged and follow up with PCP. Patient reports she has an appointment on Sunday for evaluation of her anemia and some black stool she had earlier this month. Patient denies any currently black or bloody stools. Patient in no acute distress, nontoxic appearance, stable vital signs. Differential diagnosis: Gastritis, bowel obstruction, gastroenteritis, dehydration Need for hospitalization: Patient does not meet criteria for hospitalization. There are no social concerns with this patient. DX & DISP Disposition: Discharge Departure Impression: Primary Impression: Gastritis Additional Impressions: UTI (urinary tract infection), Anemia Condition: Stable Scripts Pantoprazole Sodium (Protonix) 20 Mg Tablet.dr 1 TAB PO DAILY for 10 Days, #30 TAB 0 Refills Prov: RICHARDDARNELL LUNA 08/09/24 Cephalexin Monohydrate (Keflex) 500 Mg Cap 1 CAP PO BID for 5 Days, #10 CAP 0 Refills Prov: DARNELL RAMOS 08/09/24 Additional Instructions: Please follow up with your PCP in 1-2 days. Take your antibiotics as prescribed. If symptoms worsen please return to ER. FOLLOW-UP WITH PRIMARY CARE PROVIDER IN 1 TO 2 DAYS. TAKE MEDICATIONS DIRECTED HERE IN THE EMERGENCY ROOM. OKAY TO CONTINUE HOME MEDICATIONS UNLESS OTHERWISE DISCUSSED DURING YOUR VISIT IN THE EMERGENCY ROOM TODAY. RETURN TO YOUR NEAREST EMERGENCY ROOM IF SYMPTOMS WORSEN OR IF THERE IS NO IMPROVEMENT. CALL 911 IF YOU NEED IMMEDIATE ASSISTANCE. TAKE TYLENOL OR MOTRIN [id number] NEEDED AND IF NO CONTRAINDICATIONS ARE PRESENT. INCREASE ORAL HYDRATION. A WOUND CULTURE OR URINE CULTURE WAS ORDERED HERE IN THE EMERGENCY ROOM DEPARTMENT PLEASE FOLLOW-UP WITH PRIMARY CARE PROVIDER AND ADVISE THEM TO GET REPEAT PORTS FROM OUR FACILITY. IF YOU HAD ANY AYSE WRAP/SPLINTS THAT WERE APPLIED HERE, PLEASE DO NOT REMOVE THEM UNTIL YOU SEE YOUR PRIMARY CARE OR SPECIALTY. Referrals: CANDIS ACOSTA MD (PCP) Time of Disposition: 21:32 I have reviewed the case, and I agree with, Diagnosis and Plan RICHARDDARNELL LUNA Aug 09, 2024 21:27
[2024-08-09] MEDS: cefTRIAXone 1G VIAL IVPB ONE (21:33)
[2024-08-09] MEDS ORDERED: CEPH500B PO (21:36)
[2024-08-09] MEDS ORDERED: PANT20TA PO (21:36)
[2024-08-09 21:43] VITALS: BP 131/61; PULSE 81; RESP 19; TEMP 98.4; O2SAT 96
== END 2024-08-09 21:57 | disposition home or self-care (01) ==
LOC: EDH 19:13
DX: K29.70 Gastritis, unspecified, without bleeding (principal); N39.0 Urinary tract infection, site not specified; D64.9 Anemia, unspecified; E11.9 Type 2 diabetes mellitus without complications; E78.00 Pure hypercholesterolemia, unspecified; I10 Essential (primary) hypertension; Z79.01 Long term (current) use of anticoagulants; Z79.84 Long term (current) use of oral hypoglycemic drugs; Z79.899 Other long term (current) drug therapy; Z88.1 Allergy status to other antibiotic agents; Z88.2 Allergy status to sulfonamides; Z88.5 Allergy status to narcotic agent; Z88.8 Allergy status to other drugs, medicaments and biological substances; Z90.49 Acquired absence of other specified parts of digestive tract; Z98.1 Arthrodesis status
CPT/HCPCS: 99285; 74176; 96374; 96375; 80076; 84484; 80048; 83690; 85025; 87086 ×2; 87186; 81001; 36415; 93005; J1885; J7030; J0696; J2470

== ENCOUNTER → 2024-11-03 | Outpatient (CLI) | payer OTHER ==
[~2024-11-03] MED LIST changes: +CEPH500B PO; +PANT20TA PO
--- NOTE | 2024-11-03 11:21 | HMCIMG ---
Exam Type: MAMMO DX BILATERAL Clinical Information: MASTODYNIA Comparison: July 11, 2022 TECHNIQUE: Mammogram was performed with CC and MLO and ML projections. CAD was performed. CAD shows no worrisome regions. FINDINGS: The breasts are heterogeneously dense, which may obscure small masses.. No dominant mass or suspicious microcalcification identified. There is no nipple retraction or skin thickening. Benign-appearing calcifications are seen. IMPRESSION: 1. No mammographic signs of malignancy. . 2. Routine follow-up recommended. BI-RADS: CATEGORY 2: BENIGN FINDINGS Note: A negative x-ray should not delay biopsy if a dominant or clinically suspicious mass is present, since 8-10% of cancers are not identified by mammography. Dense breasts, particularly, may obscure an underlying neoplasm.
== END | disposition home or self-care (01) ==
LOC: RAH 10:45
PROVIDERS: ATTEND Family Medicine
DX: R92.333 Mammographic heterogeneous density, bilateral breasts (principal); N64.4 Mastodynia
CPT/HCPCS: 77066

== ENCOUNTER 2024-12-14 17:48 | Observation (INO) | payer OTHER ==
[~2024-12-14] VITALS: Ht 154.9 cm; Wt 78.6 kg
[2024-12-14 18:25] LABS: IMMATURE GRANULOCYTE ABSOLUTE 0.02 K/uL (0-1); NUCLEATED RED BLOOD CELLS 0.0 % (0.0-0.19); PLATELET COUNT (AUTO) 222 K/uL (130-400); RED BLOOD CELL COUNT(AUTO) 4.21 MIL/uL (4.00-5.50); RED CELL DISTRIBUTION WIDTH 13.5 % (11.0-15.5); WHITE BLOOD COUNT (AUTO) 7.6 K/uL (4.8-10.8)
--- NOTE | 2024-12-14 18:26 | EKG ---
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
[2024-12-14 18:35] LABS: CREATININE 0.9 mg/dL (0.5-1.0); GLOMERULAR FILTR. RATE CALC 65.0 mL/min (>90); GLUCOSE,RANDOM 113.0 mg/dL (70-105); SODIUM SERUM 138.0 mmol/L (136-145); UREA NITROGEN, BLOOD 18.0 mg/dL (7-18)
[2024-12-14 18:44] LABS: ASPARTATE AMINOTRANSFERASE 18.0 U/L (10-37); CREATINE KINASE, TOTAL 40.0 U/L (21-232); TOTAL PROTEIN, SERUM 7.3 g/dL (6.0-8.3)
[2024-12-14 18:52] LABS: APPEARANCE,URINE CLEAR (CLEAR); GLUCOSE, URINE (UA) NEGATIVE (NEGATIVE); LEUKOCYTE ESTERASE ,URINE 75 Leu/uL (NEGATIVE); NITRATE,URINE NEGATIVE (NEGATIVE); OCCULT BLOOD,URINE NEGATIVE (NEGATIVE)
[2024-12-14 18:58] LABS: ADD UA MICROSCOPIC YES
[2024-12-14 19:00] LABS: SQUAMOUS EPITHELIAL CELL,UR RARE /HPF (0-2)
[2024-12-14] MEDS: LIDOCAINE HCL 2% VISCOUS 15 ML UDCUP PO ONE (19:00)
[2024-12-14] MEDS: DICYCLOMINE HCL 10 MG/5 ML ML PO ONE (19:00)
[2024-12-14] MEDS: MAG/ALUM/SIMETH 30 ML UDCUP PO ONE (19:00)
--- NOTE | 2024-12-14 19:57 | HMCIMG ---
Joseph said: EXAMINATION: CT ABDOMEN AND PELVIS WITHOUT IV CONTRAST CLINICAL HISTORY: Patient presents with right upper quadrant and epigastric abdominal pain. COMPARISON: CT abdomen and pelvis dated August 09, 2024. TECHNIQUE: Axial computed tomography images of the abdomen and pelvis without intravenous contrast. CONTRAST: No IV contrast. FINDINGS: LUNG BASES: The lung bases are clear. No pleural effusions. Prior mitral valve replacement. LIVER: Unremarkable. GALLBLADDER AND BILE DUCTS: The gallbladder is surgically absent. No biliary ductal dilatation. PANCREAS: Unremarkable. SPLEEN: Unremarkable. ADRENAL GLANDS: Unremarkable. KIDNEYS, URETERS, AND BLADDER: The kidneys are within normal limits. Bilateral minimal nonspecific perinephric fat stranding. No hydronephrosis, hydroureter, or urinary calculi. The urinary bladder is incompletely distended, limiting evaluation for wall thickening. STOMACH AND BOWEL: Unremarkable appearance of the stomach and bowel. No evidence of bowel obstruction. No evidence suggesting enteritis or colitis. APPENDIX: No evidence of acute appendicitis. PERITONEUM: No free fluid. No free air. LYMPH NODES: No lymphadenopathy. REPRODUCTIVE: The uterus and both ovaries are atrophic, consistent with postmenopausal status. VASCULATURE: No evidence of abdominal aortic aneurysm. BONES: Postsurgical changes in the lumbar spine with pedicle fixation screws and interbody fusion. Multilevel moderate degenerative changes in the spine. No acute osseous abnormality or aggressive lesion. IMPRESSION: Postsurgical absence of the gallbladder. Bilateral minimal perinephric fat stranding of nonspecific etiology. Recommend correlation with renal function test. Incomplete distention of the urinary bladder limits evaluation for wall thickening. Postsurgical changes in the lumbar spine with pedicle fixation and interbody fusion. Multilevel moderate degenerative changes in the spine. No acute intra-abdominal or pelvic abnormality. /[place]
--- NOTE | 2024-12-14 21:09 | ERN ---
ED Note History of Present Illness Stated Complaint: ABD PAIN Chief Complaint: Abdominal Pain Time Seen by MD: 17:55 Time Seen by Midlevel: 17:55 Dictation: The patient is a 79-year-old female with a history of diabetes, hypertension, AFib on Eliquis, cholecystectomy who presents to the emergency department with complaints of epigastric, right upper abdominal pain that radiates to the back onset 3:00 p.m. today. Patient denies any nausea, vomiting, diarrhea constipation. Denies any fevers. Patient does report that she was recently treated for a urinary tract infection. Patient finished her Levaquin week ago. Allergies: Coded Allergies: Sulfa (Sulfonamide Antibiotics) (Unverified Allergy, Unknown, 11/30/20) azithromycin (Unverified Allergy, Unknown, 11/30/20) codeine (Unverified Allergy, Unknown, 11/30/20) prednisone (Unverified Allergy, Unknown, 11/30/20) Home Meds Active Scripts Pantoprazole Sodium (Protonix) 20 Mg Tablet.dr, 1 TAB PO DAILY for 10 Days, #30 TAB 0 Refills Prov:DARNELL RAMOS [facility] 08/09/24 Cephalexin Monohydrate (Keflex) 500 Mg Cap, 1 CAP PO BID for 5 Days, #10 CAP 0 Refills Prov:DARNELL RAMOS [facility] 08/09/24 Reported Medications Hydrochlorothiazide (Hydrochlorothiazide) 12.5 Mg Tablet, 12.5 MG PO DAILY, TAB 06/17/24 Losartan Potassium (Losartan Potassium) 50 Mg Tablet, 1 TAB PO HS 06/02/23 Rivaroxaban (Xarelto) 20 Mg Tablet, 1 TAB PO DAILY 06/02/23 Rosuvastatin Calcium (Rosuvastatin Calcium) 40 Mg Tablet, 1 TAB PO DAILY 06/02/23 Metoprolol Succinate (Metoprolol Succinate) 50 Mg Tab.er.24h, 25 TAB PO DAILY 06/02/23 Metformin HCl (Metformin HCl) 500 Mg Tablet, 1 TAB PO BID 06/02/23 Past Medical History Past Medical History: A-Fib, Diabetes-Type II, High Cholesterol, Heart Disease, Hypertension Additional Past Medical Hx: GALLSTONES, GASTRITIS Surgical History: Cholecystectomy, Other Surgical History Other: BACK SX;FUSION Family History: Negative Social History: Negative, Lives with family History: Not Applicable RN Note Reviewed/Agreed w/PFSH: Yes Review of System Dictation Constitutional: Negative for fever,chills, and weight loss Eyes: Negative for injury, pain,redness, and discharge ENT: Negative for injury,pain or swelling Cardiovascular: Negative for chest pain, palpitations, and edema Respiratory: Negative for shortness of breath, cough, and wheezing, Abdomen/GI: Negative for nausea, vomiting, diarrhea, and constipation positive for abdominal pain Back: Negative for injury and pain positive for right flank pain : Negative for injury, bleeding and discharge MS/Extremity: Negative for injury and deformity Skin: Negative for rash, and discoloration Neuro: Negative for headache, weakness, numbness, tingling, and seizure Psych: Negative for suicide ideation, homicidal ideation, and hallucinations Initial Vital Sign VS Vital Signs Date Time Temp Pulse Resp B/P (MAP) Pulse Ox O2 Delivery O2 Flow Rate FiO2 12/14/24 17:50 98.6 86 18 187/80 98 12/14/24 19:15 Room Air* 0 21 Physical Exam Dictation Vital Signs reviewed General Appearance: Alert, oriented x 3, no acute distress, well developed, nourished. Head and Face: non-traumatic. Eyes: PERRL, pink conjunctivas, eyelid no trauma, anterior chamber with arcus senilis. Ears: Pinnas intact and no signs of trauma or erythema ear canals clear and no discharge TM no erythema Nose: No discharge, no bleeding. Oropharynx: Mouth normal, tongue pink. pharynx clear,no erythema, tonsils no exudates, no abscesses noted, mucous membrane moist Neck: Supple, non-tender, no thyromegaly, no masses, no JVD, no bruits Breast:Deferred Chest:No tenderness, no crepitus, no paradoxical movement, no retractions Lungs:Clear, well-ventilated, symmetric, no rales, no wheezing, no rhonchi, no stridor, good breath sounds bilaterally Heart: Regular rate, regular rhythm, no murmur, no gallops Vascular: no peripheral edema, Abdomen: Soft, positive bowel sounds, nondistended, no guarding, nontender, no rebound, no masses no hepatomegaly, no splenomegaly, no Dickson's sign, no hernias. Rectal: Deferred Genital: Deferred Neurological: Normal speech, motor function intact, sensory function intact Musculoskeletal: Neck nontender, full range of motion, back nontender, full range of motion, Extremities: nontender, full range of motion Skin: Color pink, dry, no turgor, no rash, no lacerations, no abrasions, no contusions. Lymphatic: Deferred Results (Laboratory/Radiology) Laboratory/Radiology Laboratory Tests Test 12/14/24 18:17 12/14/24 18:18 White Blood Count 7.6 K/uL (4.8-10.8) Red Blood Count 4.21 MIL/uL (4.00-5.50) Hemoglobin 12.3 g/dL (12.0-16.0) Hematocrit 37.1 % (36-48) Mean Corpuscular Volume 88.1 fL (79-99) Mean Corpuscular Hemoglobin 29.2 pg (27.0-33.0) Mean Corpuscular Hemoglobin Concent 33.2 g/dL (32.0-36.0) Red Cell Distribution Width 13.5 % (11.0-15.5) Platelet Count 222 K/uL (130-400) Mean Platelet Volume 9.6 fL (7.5-10.5) Immature Granulocyte % (Auto) 0.3 % (0-1) Neutrophils (%) (Auto) 54.8 % (40.0-77.0) Lymphocytes (%) (Auto) 36.7 % (21.0-51.0) Monocytes (%) (Auto) 7.1 % (3.0-13.0) Eosinophils (%) (Auto) 0.8 % (0.0-8.0) Basophils (%) (Auto) 0.3 % (0.0-5.0) Neutrophils # (Auto) 4.2 K/uL (1.8-7.7) Lymphocytes # (Auto) 2.8 K/uL (1.0-4.8) Monocytes # (Auto) 0.5 K/uL (0.1-1.0) Eosinophils # (Auto) 0.06 K/uL (0.00-0.70) Basophils # (Auto) 0.02 K/uL (0.00-0.20) Absolute Immature Granulocyte (auto 0.02 K/uL (0-1) Nucleated Red Blood Cells 0.0 % (0.0-0.19) Sodium Level 138 mmol/L (136-145) Potassium Level 4.0 mmol/L (3.5-5.1) Chloride Level 98 mmol/L (101-111) L Carbon Dioxide Level 35 mmol/L (21-32) H Blood Urea Nitrogen 18 mg/dL (7-18) Creatinine 0.9 mg/dL (0.5-1.0) Glomerular Filtration Rate Calc 65 mL/min (>90) Random Glucose 113 mg/dL (70-105) H Total Calcium 9.4 mg/dL (8.5-10.1) Total Bilirubin 0.5 mg/dL (0.2-1.0) Direct Bilirubin 0.1 mg/dL (0.0-0.3) Aspartate Amino Transf (AST/SGOT) 18 U/L (10-37) Alanine Aminotransferase (ALT/SGPT) 22 U/L (12-78) Alkaline Phosphatase 65 U/L (50-136) Total Creatine Kinase 40 U/L (21-232) # Troponin I High Sensitivity 4 ng/L (4-50) Total Protein 7.3 g/dL (6.0-8.3) Albumin 3.5 g/dL (3.5-5.0) Lipase 38 U/L (16-77) Urine Color COLORLESS (YELLOW) Urine Appearance CLEAR (CLEAR) Urine pH 7.0 (5.0-8.0) Urine Specific [place] 1.005 (1.001-1.031) Urine Protein NEGATIVE mg/dL (NEGATIVE) Urine Glucose (UA) NEGATIVE mg/dL (NEGATIVE) Urine Ketones NEGATIVE mg/dL (NEGATIVE) Urine Occult Blood NEGATIVE (NEGATIVE) Urine Nitrate NEGATIVE (NEGATIVE) Urine Bilirubin NEGATIVE mg/dL (NEGATIVE) Urine Urobilinogen 0.2 mg/dL (0.2-1.0) Urine Leukocyte Esterase 75 [place]/uL (NEGATIVE) H Urine RBC 0-1 /HPF (0-1) Urine WBC 6-10 /HPF (0-1) H Urine Squamous Epithelial Cells RARE /HPF (0-2) Urine Bacteria RARE /HPF (None Seen) REASON: ruq,epigastric abd pain ORDERING PHYSICIAN: DARNELL RAMOS PROCEDURE: ABD PEL WO - CT ABDOMEN/PELVIS W/O CONTRAST ChatGPT said: EXAMINATION: CT ABDOMEN AND PELVIS WITHOUT IV CONTRAST CLINICAL HISTORY: Patient presents with right upper quadrant and epigastric abdominal pain. COMPARISON: CT abdomen and pelvis dated August 09, 2024. TECHNIQUE: Axial computed tomography images of the abdomen and pelvis without intravenous contrast. CONTRAST: No IV contrast. FINDINGS: LUNG BASES: The lung bases are clear. No pleural effusions. Prior mitral valve replacement. LIVER: Unremarkable. GALLBLADDER AND BILE DUCTS: The gallbladder is surgically absent. No biliary ductal dilatation. PANCREAS: Unremarkable. SPLEEN: Unremarkable. ADRENAL GLANDS: Unremarkable. KIDNEYS, URETERS, AND BLADDER: The kidneys are within normal limits. Bilateral minimal nonspecific perinephric fat stranding. No hydronephrosis, hydroureter, or urinary calculi. The urinary bladder is incompletely distended, limiting evaluation for wall thickening. STOMACH AND BOWEL: Unremarkable appearance of the stomach and bowel. No evidence of bowel obstruction. No evidence suggesting enteritis or colitis. APPENDIX: No evidence of acute appendicitis. PERITONEUM: No free fluid. No free air. LYMPH NODES: No lymphadenopathy. REPRODUCTIVE: The uterus and both ovaries are atrophic, consistent with postmenopausal status. VASCULATURE: No evidence of abdominal aortic aneurysm. BONES: Postsurgical changes in the lumbar spine with pedicle fixation screws and interbody fusion. Multilevel moderate degenerative changes in the spine. No acute osseous abnormality or aggressive lesion. IMPRESSION: Postsurgical absence of the gallbladder. Bilateral minimal perinephric fat stranding of nonspecific etiology. Recommend correlation with renal function test. Incomplete distention of the urinary bladder limits evaluation for wall thickening. Postsurgical changes in the lumbar spine with pedicle fixation and interbody fusion. Multilevel moderate degenerative changes in the spine. No acute intra-abdominal or pelvic abnormality. /[place] Labs Reviewed?: Yes EKG: (+) rhythm (Sinus rhythm) EKG Comment: Date:12/14/2024 Time:1822 Ventricular rate:80 MO interval:177 QRS duration:132 QT/QTc:411/474 EKG interpretation: Sinus rhythm Reviewed by ED Attending no STEMI ED Course ED Course Orders Procedure Category Date Status Time Cbc With Differential LAB 12/14/24 Complete 18:07 Troponin I High LAB 12/14/24 Complete Sensitivity 18:07 Urinalysis Profile LAB 12/14/24 Complete 18:07 12 Lead Ekg Tracing- EKG 12/14/24 Complete Technical 18:07 Lidocaine Hcl 2% PHA 12/14/24 Complete Viscous (Lidocaine Hcl 18:30 Mag/Alum/Simeth 30ml PHA 12/14/24 Complete (Maalox Plus 30ml) 18:30 Dicyclomine Hcl PHA 12/14/24 Complete (Bentyl 10mg/5ml 18:30 Creatine Kinase, Total LAB 12/14/24 Complete 18:07 Ct Abdomen/Pelvis W/O CT 12/14/24 Resulted Contrast 18:07 Lipase LAB 12/14/24 Complete 18:07 Basic Metabolic Panel LAB 12/14/24 Complete 18:07 Hepatic Function Panel LAB 12/14/24 Complete 18:07 Culture Urine JULIANA 12/14/24 In Process 18:58 Ceftriaxone 1g Vial PHA 12/14/24 Complete (Rocephine 1g Inj) 20:30 Edm Admit Bridge Order ADM 12/14/24 Transmitted 20:46 Current Medications Medications (Trade) Dose Ordered Sig/Walter Route PRN Reason Start Time Stop Time Status Last Admin Dose Admin Al Hydroxide/Mg Hydroxide (MAALox PLUS 30ML) 30 ml ONCE ONCE PO 12/14/24 18:30 12/14/24 18:31 DC 12/14/24 19:00 Ceftriaxone Sodium (ROCEphine 1G INJ) 1 gm ONCE ONCE IVPB 12/14/24 20:30 12/14/24 20:31 DC 12/14/24 20:37 Dicyclomine HCl (Bentyl 10mg/5ml Syrup) 10 mg ONCE ONCE PO 12/14/24 18:30 12/14/24 18:31 DC 12/14/24 19:00 Lidocaine HCl (Lidocaine HCl 2% Viscous) 10 ml ONCE ONCE PO 12/14/24 18:30 12/14/24 18:31 DC 12/14/24 19:00 Vital Signs Date Time Temp Pulse Resp B/P (MAP) Pulse Ox O2 Delivery O2 Flow Rate FiO2 12/14/24 19:15 98.2 88 18 158/74 98 Room Air* 0 21 12/14/24 17:50 98.6 86 18 187/80 98 Medical Decision Making MDM MDM: The patient is a 79-year-old female with a history of diabetes, hypertension, AFib on Eliquis, cholecystectomy who presents to the emergency department with complaints of epigastric, right upper abdominal pain that radiates to the back onset 3:00 p.m. today. Patient denies any nausea, vomiting, diarrhea constipation. Denies any fevers. Patient does report that she was recently treated for a urinary tract infection. Patient finished her Levaquin week ago. CBC showed no leukocytosis, no anemia, chemistry showed chemistry showed mild hypochloremia, GFR of 65, no liver enzymes, negative lipase, negative troponin. CT abdomen and pelvis showed bilateral minimal connie nephric fat stranding. Urinalysis Leukocyte esterase. Given patient continues with a urinary tract infection even after outpatient treatment. Continues with the abdominal pain. We will admit for further evaluation and treatment. Differential diagnosis: Gastritis, gastroenteritis, ACS electrolyte imbalance, dehydration, UTI Comorbidities: AFib, diabetes, hypertension, cholecystectomy Tests considered and not ordered secondary to shared decision making include: none Previous outside records reviewed: none Risk of complication and/or morbidity or mortality of patient management: The patient meets criteria for admission. Need for emergency major/minor surgery: No There are no social concerns with this patient. I independently interpreted the tests I ordered (labs, urinalysis, etc.). I discussed the case with the hospitalist for admission. Jared who accepts admission I discussed the case with the following specialists: none. Historian: pateint. I independently interpreted imaging studies and EKGs that I ordered (US, CT, XR, EKG, etc.). External chart review: none. Medical management and examination interpretation discussions were had by me with other qualified healthcare professionals as indicated for the patient's care. DX & DISP Disposition: Inpatient Decision to Admit Date: Dec 14, 2024 Decision to Admit Time: 20:46 Departure Impression: Primary Impression: Pyelonephritis Additional Impressions: Failure of outpatient treatment, Abdominal pain Condition: Stable Referrals: CANDIS ACOSTA MD (PCP) I have reviewed the case, and I agree with, Diagnosis and Plan DARNELL RMAOS HARNESS REPAIRER Dec 14, 2024 21:09
--- NOTE | 2024-12-14 21:53 | HP ---
[facility] HISTORY & PHYSICAL Date Patient Seen: Dec 14, 2024 Time of Visit: 21:55 Supervising Physician: [Dr. Frank Gunn] Primary Care Physician: [Dr. Kitty Cisse] Outpatient Specialists: [ ] Inpatient Consults: [ ] PROBLEM LIST: UTI with failed outpatient antibiotic treatment-POA Suspected mild bilateral pyelonephritis-POA] Chronic afib on Xarelto Primary HTN Diabetes mellitus HLD PLAN: -Admit to medsurg tele -Continue IV Rocephin -Pending urine CX result -Manage abdominal pain and N/V -Resume home meds once list is completed HPI: [Patient is a 79-year-old female with PMH significant for chronic afib on Xarelto, HTN, DM and HLD who has presented to the ED concerning stomachache that starts on the RUQ that goes to the LUQ then radiates to the right posterior torso onset around 3pm. She claims she just recently completed a 10-day treatment of Ciprofloxacin for UTI. Her symptoms has been happening int ermittently for the past 1 month or maybe more. She denies fever, chills, N/V, dysuria, hematuria, urinary urgency or frequency. At the ED, her preliminary labworks were unremarkable. Her UA was significant for mild pyuria and leukocyte esterase. CT AP revealed bilateral minimal perinephric fat stranding of nonspecific etiology and incomplete distention of the urinary bladder, othe rwise, negative for acute intraabdominal processes. Patient was given IV Rocephin. Physical assessment was unrevealing without abdominal distention or tenderness. She currently denies abdominal pain. Goals of care were discussed with the patient verbalizing understanding and agreement. PAST MEDICAL HX: see above PAST SURGICAL HX: noncontributory SOCIAL HISTORY: No tobacco, ETOH, or illicit drug use Coded Allergies: Sulfa (Sulfonamide Antibiotics) (Unverified Allergy, Unknown, 11/30/20) azithromycin (Unverified Allergy, Unknown, 11/30/20) codeine (Unverified Allergy, Unknown, 11/30/20) prednisone (Unverified Allergy, Unknown, 11/30/20) REVIEW OF SYSTEMS: 12 point ROS reviewed with patient. Pertinent positives mentioned above. Otherwise negative. PHYSICAL EXAM: GENERAL: alert, awake oriented x 3 HEENT: EOMI, Sclera non icteric, moist mucosa NECK: Supple, no JVD, trachea midline LUNGS: Clear breath sounds bilaterally. No wheezes HEART: Regular rate and rhythm. Normal S1 and S2, without murmurs ABD: Abdomen soft, nontender. Bowel sounds present EXT: No clubbing cyanosis or edema NEURO: Alert and oriented to person, follows commands Vital Signs (last 8hr) Date Time Temp Pulse Resp B/P (MAP) Pulse Ox O2 Delivery O2 Flow Rate FiO2 12/14/24 19:15 98.2 88 18 158/74 98 Room Air* 0 21 12/14/24 17:50 98.6 86 18 187/80 98 LABS: Hematology Labs: Test 12/14/24 18:17 Range/Units White Blood Count 7.6 4.8-10.8 K/uL Red Blood Count 4.21 4.00-5.50 MIL/uL Hemoglobin 12.3 12.0-16.0 g/dL Hematocrit 37.1 36-48 % Mean Corpuscular Volume 88.1 79-99 fL Mean Corpuscular Hemoglobin 29.2 27.0-33.0 pg Mean Corpuscular Hemoglobin Concent 33.2 32.0-36.0 g/dL Red Cell Distribution Width 13.5 11.0-15.5 % Platelet Count 222 130-400 K/uL Mean Platelet Volume 9.6 7.5-10.5 fL Immature Granulocyte % (Auto) 0.3 0-1 % Neutrophils (%) (Auto) 54.8 40.0-77.0 % Lymphocytes (%) (Auto) 36.7 21.0-51.0 % Monocytes (%) (Auto) 7.1 3.0-13.0 % Eosinophils (%) (Auto) 0.8 0.0-8.0 % Basophils (%) (Auto) 0.3 0.0-5.0 % Neutrophils # (Auto) 4.2 1.8-7.7 K/uL Lymphocytes # (Auto) 2.8 1.0-4.8 K/uL Monocytes # (Auto) 0.5 0.1-1.0 K/uL Eosinophils # (Auto) 0.06 0.00-0.70 K/uL Basophils # (Auto) 0.02 0.00-0.20 K/uL Absolute Immature Granulocyte (auto 0.02 0-1 K/uL Nucleated Red Blood Cells 0.0 0.0-0.19 % Chemistry Labs: Test 12/14/24 18:17 Range/Units Sodium Level 138 136-145 mmol/L Potassium Level 4.0 3.5-5.1 mmol/L Chloride Level 98 L 101-111 mmol/L Carbon Dioxide Level 35 H 21-32 mmol/L Blood Urea Nitrogen 18 7-18 mg/dL Creatinine 0.9 0.5-1.0 mg/dL Glomerular Filtration Rate Calc 65 >90 mL/min Random Glucose 113 H 70-105 mg/dL Total Calcium 9.4 8.5-10.1 mg/dL Total Bilirubin 0.5 0.2-1.0 mg/dL Direct Bilirubin 0.1 0.0-0.3 mg/dL Aspartate Amino Transf (AST/SGOT) 18 10-37 U/L Alanine Aminotransferase (ALT/SGPT) 22 12-78 U/L Alkaline Phosphatase 65 50-136 U/L Total Creatine Kinase 40 # 21-232 U/L Troponin I High Sensitivity 4 4-50 ng/L Total Protein 7.3 6.0-8.3 g/dL Albumin 3.5 3.5-5.0 g/dL Lipase 38 16-77 U/L DIAGNOSTICS / RADIOLOGY RESULTS: [ ] PLAN NEURO: Minimize central acting medications as possible. Maintain fall precautions, adequate lighting during the day PULMONARY: Supplemental 02 as needed. Maintain aspiration precautions at all times CARDIOVASCULAR: Follow hemodynamics. Vital signs per facility protocol GI & NUTRITION: Continue with nutritional support. Continue stool softeners and laxatives as needed. KIDNEYS & ELECTROLYTES: Strict monitoring of intake, output and overall fluid balance. Avoid nephrotoxic medications to the extent possible. Medications to be dosed according to renal function. Monitor electrolytes and replace as needed ENDOCRINE: Maintain blood glucose between 100-180 at all times. Hypoglycemia protocol in place INFECTIOUS DISEASE: Trend temperature, WBC and procalcitonin level Follow cultures, deescalate antibiotics as soon as possible. Panculture if new onset fever ONCOLOGY/HEMATOLOGY/COAGULATION: Monitor for s/s of bleeding Monitor hemoglobin, coagulation studies as needed SKIN: Pressure ulcer prevention per facility protocol Specialty mattress ORTHO/REHAB: Continue PT/OT Prophylaxis: Continue GI and DVT prophylaxis Code Status: Full Resuscitation Disposition: CHARIS BONDS AGCORAZON Dec 14, 2024 21:53
[2024-12-14] MEDS ORDERED: LACTULOSE 20 GM/30 ML UDCUP PO PRN (22:00)
[2024-12-14 22:35] VITALS: BP 160/66; PULSE 87; RESP 16; TEMP 98.2
[2024-12-14] MEDS ORDERED: RIVA20TA PO (23:42)
[2024-12-14] MEDS ORDERED: HYDR12.54 PO (23:42)
[2024-12-14] MEDS ORDERED: METF-444 PO (23:42)
[2024-12-14] MEDS ORDERED: METO-408 PO (23:42)
[2024-12-14] MEDS ORDERED: LOSA25TA41 PO (23:42)
[2024-12-15 03:46] VITALS: BP 126/49; PULSE 80; RESP 16; TEMP 98
[2024-12-15 05:46] LABS: IMMATURE GRANULOCYTE ABSOLUTE 0.03 K/uL (0-1); NUCLEATED RED BLOOD CELLS 0.0 % (0.0-0.19); PLATELET COUNT (AUTO) 190 K/uL (130-400); RED BLOOD CELL COUNT(AUTO) 3.95 MIL/uL (4.00-5.50); RED CELL DISTRIBUTION WIDTH 13.4 % (11.0-15.5); WHITE BLOOD COUNT (AUTO) 8.2 K/uL (4.8-10.8)
[2024-12-15 06:28] LABS: CREATININE 0.8 mg/dL (0.5-1.0); GLOMERULAR FILTR. RATE CALC 75.0 mL/min (>90); GLUCOSE,RANDOM 98.0 mg/dL (70-105); PHOSPHORUS 3.8 mg/dL (2.5-4.9); SODIUM SERUM 137.0 mmol/L (136-145); UREA NITROGEN, BLOOD 16.0 mg/dL (7-18)
[2024-12-15 08:00] VITALS: BP 123/55; PULSE 74; RESP 18; TEMP 97.8; O2SAT 98
[2024-12-15] MEDS: RIVAROXABAN 15 MG TABLET PO SCH (09:24)
[2024-12-15 11:58] VITALS: BP 112/52; PULSE 84; RESP 18; TEMP 97.9
--- NOTE | 2024-12-15 12:08 | NUR ---
DCP: HOME Pt currently lives with her sister in her home. Pt does not have insecurities with food, residential, and/or utilities. Pt does not have any DME, home health, or provider services. Pt is able to complete ADLs independently. PCP is Dr. Joon Cisse and uses [facility] for any RX needs. At [place] pt will go home and family will assist with transportation. Addendum: 12/15/24 at 1210 by SOHAIL NGUYEN SS Amended: Links added.
[2024-12-15 16:00] VITALS: BP 114/51; PULSE 86; RESP 19; TEMP 98.2
--- NOTE | 2024-12-15 18:05 | DS ---
[facility] DISCHARGE SUMMARY Date Patient Seen: Dec 15, 2024 Time of Visit: 1229 Supervising Physician: Dr. Gunn Primary Care Physician: [Dr. Kitty Cisse] Outpatient Specialists: [ ] Inpatient Consults: [ ] PROBLEM LIST: UTI with failed outpatient antibiotic treatment-POA, will complete treatment with oral antibiotics Suspected mild bilateral pyelonephritis-POA], ruled out per CT abdomen Chronic afib on Xarelto Primary HTN Diabetes mellitus HLD HOSPITAL COURSE: HPI (per admitting provider)Patient is a 79-year-old female with PMH significant for chronic afib on Xarelto, HTN, DM and HLD who has presented to the ED concerning stomachache that starts on the RUQ that goes to the LUQ then radiates to the right posterior torso onset around 3pm. She claims she just recently completed a 10-day treatment of Ciprofloxacin for UTI. Her symptoms has been happening intermittently for the past 1 month or maybe more. She denies fever, chills, N/V, dysuria, hematuria, urinary urgency or frequency. At the ED, her preliminary labworks were unremarkable. Her UA was significant for mild pyuria and leukocyte esterase. CT AP revealed bilateral minimal perinephric fat stranding of nonspecific etiology and incomplete distention of the urinary bladder, otherwise, negative for acute intraabdominal processes. Patient was g iven IV Rocephin. Physical assessment was unrevealing without abdominal distention or tenderness. She currently denies abdominal pain. Goals of care were discussed with the patient verbalizing understanding and agreement. Patient was seen and examined by bedside with no family present. Patient is awake alert able to answer simple questions appropriately. Patient denies any chest pain or shortness of breadth. Denies any nausea vomiting or abdominal pain. Patient states is feeling much better has no urinary symptoms at this time. Labs this morning unremarkable. Patient reports feels much better and is ready to go home. Instructed patient will be getting discharged today and will need to follow up with PCP within 3-5 days upon discharge. Patient will be getting discharged on [id number] mg/125 mg one tab p.o. b.i.d. to complete a total of seven days. Patient voices understanding and agrees with plan has no questions at this time The patient was treated for the following problems: ACTIVE PROBLEM LIST FOR THE HOSPITALIZATION: CHRONIC PROBLEMS: continue previous management per PCP unless otherwise indicated C[facility] HAND FINDINGS/RECOMMENDATIONS: na PROCEDURES: as mentioned above DISCHARGE MEDICATIONS: Pt hemodynamically stable and afebrile at time of discharge. PCP notified of patients admission, hospital course and discharge. PHYSICAL EXAM: GENERAL: alert, awake oriented x 3 HEENT: EOMI, Sclera non icteric, moist mucosa NECK: Supple, no JVD, trachea midline LUNGS: Clear breath sounds bilaterally. No wheezes HEART: Regular rate and rhythm. Normal S1 and S2, without murmurs ABD: Abdomen soft, nontender. Bowel sounds present EXT: No clubbing cyanosis or edema NEURO: Alert and oriented to person, follows commands FOLLOW-UP: Follow-up with PCP in 2-3 days RECOMMENDATIONS: See Discharge Instructions This case was seen and discussed with my supervising physician. 35 minutes spent on discharge process, including evaluation of the patient, discussion with nursing staff, medication reconciliation and follow-up appointments MARCELA RIVERS Dec 15, 2024 18:05
== END 2024-12-15 18:20 | disposition home or self-care (01) ==
LOC: EDH 17:48 → EDHIP 21:50 → 4DH 22:32
PROVIDERS: ADMIT Internal Medicine Pulmonary Disease; ATTEND Internal Medicine Pulmonary Disease
DX: N39.0 Urinary tract infection, site not specified (principal); I48.20 Chronic atrial fibrillation, unspecified; I10 Essential (primary) hypertension; E11.9 Type 2 diabetes mellitus without complications; N12 Tubulo-interstitial nephritis, not specified as acute or chronic; E78.5 Hyperlipidemia, unspecified; Z90.49 Acquired absence of other specified parts of digestive tract; Z88.5 Allergy status to narcotic agent; Z79.84 Long term (current) use of oral hypoglycemic drugs; Z79.899 Other long term (current) drug therapy
CPT/HCPCS: 96374; 99285; 82550; 80076; 84484; 80048 ×2; 83690; 85025 ×2; 87086 ×2; 87186; 81001; 36415 ×2; 74176; 93005; 84443; 83735; 84100; 82948 ×3; G0378 ×20; J0696

== ENCOUNTER 2025-01-06 21:57 | Emergency (ER) | payer OTHER ==
[~2025-01-06] VITALS: Ht 154.9 cm; Wt 79.8 kg
[~2025-01-06 21:57] MED LIST changes: -CEPH500B PO; +LOSA25TA41 PO; -LOSA50TA64 PO; -METO-391 PO; +METO-408 PO; -PANT20TA PO
--- NOTE | 2025-01-06 22:24 | EKG ---
[facility] Test Date: 2025-01-06 Test Time: 22:20:37 Pat Name: ANKIT HARVEY Department: ED Room: Gender: F Drilling Inspector: [id number] : 1945 Requested By: YELITZA SCHAEFFER Order Number: [id number] Reading MD: Ginger Soto Measurements Intervals [place] Rate: 78 P: 46 [place]: 157 QRS: 5 QRSD: 79 T: 30 QT: 375 QTc: 429 Interpretive Statements Sinus rhythm Low voltage, precordial leads Compared to ECG 12/14/2024 18:22:54 Low QRS voltage now present Left bundle-branch block no longer present Electronically Signed On 01-07-2025 11:21:37 CDT by Ginger Soto Please click the below link to view image of tracing.
[2025-01-06 22:35] LABS: APPEARANCE,URINE CLEAR (CLEAR); GLUCOSE, URINE (UA) NEGATIVE (NEGATIVE); LEUKOCYTE ESTERASE ,URINE NEGATIVE Leu/uL (NEGATIVE); NITRATE,URINE NEGATIVE (NEGATIVE); OCCULT BLOOD,URINE NEGATIVE (NEGATIVE)
--- NOTE | 2025-01-06 22:35 | ERN ---
General Chief Complaint: Abdominal Pain Stated Complaint: C/O RLQ PAIN RADIATING TO BACK Time Seen by MD: 22:01 History of Present Illness Initial Comments 79-year-old female coming in with right lower quadrant pain that radiates around to her back and also down into her groin and down the medial surface of her right thigh. No pain while urinating. She has a history of recurrent UTIs for the last two months. These UTIs have been treated with Cipro once and then Augmentin twice but they have not eradicated the infections. Patient reports no fevers no chills no nausea no vomiting no diarrhea. Timing/Duration: 1 week Allergies: Coded Allergies: Sulfa (Sulfonamide Antibiotics) (Unverified Allergy, Unknown, 11/30/20) azithromycin (Unverified Allergy, Unknown, 11/30/20) codeine (Unverified Allergy, Unknown, 11/30/20) prednisone (Unverified Allergy, Unknown, 11/30/20) Home Meds Reported Medications Metoprolol Succinate (Metoprolol Succinate) 25 Mg Tab.er.24h, 1 TAB PO DAILY for 30 Days, #30 TAB 0 Refills 12/14/24 Losartan Potassium (Losartan Potassium) 25 Mg Tablet, 1 TAB PO HS for 30 Days, #30 TAB 0 Refills 12/14/24 Hydrochlorothiazide (Hydrochlorothiazide) 12.5 Mg Tablet, 1 TAB PO DAILY for 30 Days, #30 TAB 0 Refills 12/14/24 Rivaroxaban (Xarelto) 20 Mg Tablet, 1 TAB PO DAILY for 30 Days, #30 TAB 0 Refills with food 12/14/24 Metformin HCl (Metformin HCl) 500 Mg Tablet, 1 TAB PO BID for 30 Days, #60 TAB 0 Refills 12/14/24 Rosuvastatin Calcium (Rosuvastatin Calcium) 40 Mg Tablet, 1 TAB PO DAILY 06/02/23 Past Medical History Past Medical History: Other Medical History Other: GALLSTONES, GASTRITIS, recurrent UTIs Past Surgical History: Unknown Surgical History Other: BACK SX;FUSION Family History Family History: Negative Social History Social History: Negative, Lives with family Female( History) History: Not Applicable Constitutional: (-) chills, (-) diaphoresis, (-) fever, (-) malaise, (-) weakness, (-) other documentation EENTM: (-) eye pain, (-) blurred vision, (-) tearing, (-) double vision, (-) ear pain, (-) ear discharge, (-) nose pain, (-) nose congestion, (-) throat pain, (-) Throat swelling, (-) mouth pain, (-) tooth pain, (-) mouth swelling, (-) other documentation Respiratory: (-) cough, (-) orthopnea, (-) short of breath, (-) stridor, (-) wheezing, (-) other documentation Cardiovascular: (-) chest pain, (-) edema, (-) palpitations, (-) syncope, (-) dyspnea on exertion, (-) other documentation Gastrointestinal/Abdominal: (-) nausea, (-) vomiting, (-) diarrhea, (-) abdominal pain, (-) abdominal distention, (-) constipation, (-) rectal bleeding, (-) dark stool/melena, (-) other documentation Genitourinary: (-) vaginal discharge, (-) vaginal bleeding, (-) dysuria, (-) frequency, (-) hematuria, (-) pain, (-) other documentation Musculoskeletal: (-) Neck pain, (-) back pain, (-) Flank Pain, (-) joint pain, (-) joint swelling, (-) muscle pain, (-) muscle stiffness, (-) gout, (-) other documentation Skin: (-) laceration, (-) contusion, (-) abrasion, (-) abscess, (-) rash, (-) change in color, (-) change in hair, (-) change in nails, (-) diaphoresis, (-) dryness, (-) other documentation Physical Exam General Appearance: (+) no apparent distress Orientation: (+) alert, (+) oriented x 3 Head/Face Trauma: No Eye: bilateral eye normal inspection, bilateral eye PERRL, bilateral eye EOMI Ear, Nose, Throat: (+) hearing grossly normal, (+) normal ENT inspection Neck: (+) normal inspection, (+) supple, (+) full range of motion Respiratory: (+) chest non-tender, (+) lungs clear, (+) well ventilated Heart: (+) regular, (+) no gallop Vascular: (+) no edema, (+) normal peripheral pulse Gastrointestinal: (+) soft, (+) bowel sound present, (+) tender Gastrointestinal Comment Mild right lower quadrant tenderness. No peritoneal signs. The pain is the same whether she tenses her stomach muscles are not. Results Laboratory and Microbiology Lab and Micro Result Laboratory Tests Test 01/06/25 22:07 01/06/25 22:37 Urine Color COLORLESS (YELLOW) Urine Appearance CLEAR (CLEAR) Urine pH 6.5 (5.0-8.0) Urine Specific [place] 1.006 (1.001-1.031) Urine Protein NEGATIVE mg/dL (NEGATIVE) Urine Glucose (UA) NEGATIVE mg/dL (NEGATIVE) Urine Ketones NEGATIVE mg/dL (NEGATIVE) Urine Occult Blood NEGATIVE (NEGATIVE) Urine Nitrate NEGATIVE (NEGATIVE) Urine Bilirubin NEGATIVE mg/dL (NEGATIVE) Urine Urobilinogen 0.2 mg/dL (0.2-1.0) Urine Leukocyte Esterase NEGATIVE [place]/uL Sodium Level 132 mmol/L (136-145) L Potassium Level 4.6 mmol/L (3.5-5.1) Chloride Level 96 mmol/L (101-111) L Carbon Dioxide Level 33 mmol/L (21-32) H Blood Urea Nitrogen 19 mg/dL (7-18) H Creatinine 1.1 mg/dL (0.5-1.0) H Glomerular Filtration Rate Calc 51 mL/min (>90) Random Glucose 104 mg/dL (70-105) Total Calcium 9.0 mg/dL (8.5-10.1) Total Bilirubin 0.6 mg/dL (0.2-1.0) Aspartate Amino Transf (AST/SGOT) 39 U/L (10-37) H Alanine Aminotransferase (ALT/SGPT) 24 U/L (12-78) Alkaline Phosphatase 61 U/L (50-136) Troponin I High Sensitivity 4 ng/L (4-50) B-Type Natriuretic Peptide 9 pg/mL (0-100) Total Protein 6.9 g/dL (6.0-8.3) Albumin 3.0 g/dL (3.5-5.0) L MDM MDM: Differential diagnosis: Recurrent UTI, nephrolithiasis, muscle strain, hernia, dehydration, ovarian disease Rationale: Tests considered and ordered secondary to shared decision making include: Previous outside records reviewed: Old ER visits. Risk of complication and/or morbidity or mortality of patient management: None Medications-Per medication reconciliation Need for hospitalization: Patient does meet criteria for hospitalization. Need for emergency major/minor surgery: No There are no social concerns with this patient. Prescription drug management Prescriptions will include symptomatic care Patient's prior external medical records from other ER visits were reviewed by me as indicated. Prior testing and results from previous visits were reviewed. Prior tests were taken into account with medical decision making and resource utilization, independent historian/historians were used to obtain complete medical history. I independently interpreted the test that were performed, results were reviewed by me and considered findings on radiology if ordered. Patient's urine analysis is negative for infection. Her chemistry panel does show slight dehydration. Patient's abdominal pain is so much better now with the L of fluids she would like to go home. ED Course Orders Procedure Category Date Status Time 12 Lead Ekg Tracing- EKG 01/06/25 Complete Technical 22:13 B-Type Natriuretic LAB 01/06/25 Complete Peptide 22:13 Basic Metabolic Panel LAB 01/06/25 Complete 22:13 Comprehensive LAB 01/06/25 Complete Metabolic Panel 22:13 Troponin I High LAB 01/06/25 Complete Sensitivity 22:13 Urinalysis Profile LAB 01/06/25 Complete 22:13 Lactated Ringers PHA 01/06/25 Complete 1000ml (Lactated 23:38 Ct Abdomen/Pelvis CT 01/07/25 Resulted W/Wo Contras 00:06 Iohexol (Omnipaque) PHA 01/07/25 Complete 00:48 Current Medications Medications (Trade) Dose Ordered Sig/Walter Route PRN Reason Start Time Stop Time Status Last Admin Dose Admin Iohexol (Omnipaque) 35,000 mg STK-MED ONCE IV 01/07/25 00:48 01/07/25 00:48 DC Lactated Ringer's (Lactated Ringers 1000ml) 1,000 ml BOLUS STAT IV 01/06/25 23:38 01/06/25 23:44 DC 01/07/25 00:06 Vital Signs Date Time Temp Pulse Resp B/P (MAP) Pulse Ox O2 Delivery O2 Flow Rate FiO2 01/06/25 22:43 97.5 77 18 145/52 99 Room Air* 0 21 01/06/25 21:59 97.3 93 20 176/79 98 Room Air DX & DISP Disposition: Discharge Departure Impression: Primary Impression: Abdominal pain Additional Impression: Dehydration Condition: Stable Additional Instructions: You came in because of right lower quadrant abdominal pain. Exam was relatively benign there was no evidence of intra-abdominal infection or pathology on the CT scan. Your urinary analysis shows no evidence of a urinary tract infection. The best explanation I can give for your abdominal pain is dehydration as her chemistry panel did show some hints of dehydration and your abdominal pain improved with a L of IV fluids. You should be fine if you go home and drink plenty of fluids. Drink enough water in a day so that your urine runs clear at least once a day. Please follow-up with your primary care provider to be sure that your dehydration as reflected in your kidney labs have improved. I.e. your BUN and creatinine levels should both be going down. Feel free to return if your abdominal pain gets worse or if you get dehydrated to the point that you can not take any liquids or solid food without throwing up. Referrals: CANDIS ACOSTA MD (PCP) YELITZA SCHAEFFER MD Jan 06, 2025 22:35
[2025-01-06 22:36] LABS: ADD UA MICROSCOPIC NO
[2025-01-06 23:10] LABS: ASPARTATE AMINOTRANSFERASE 39.0 U/L (10-37); CREATININE 1.1 mg/dL (0.5-1.0); GLOMERULAR FILTR. RATE CALC 51.0 mL/min (>90); GLUCOSE,RANDOM 104.0 mg/dL (70-105); SODIUM SERUM 132.0 mmol/L (136-145); TOTAL PROTEIN, SERUM 6.9 g/dL (6.0-8.3); UREA NITROGEN, BLOOD 19.0 mg/dL (7-18)
[2025-01-07] MEDS: LACTATED RINGERS 1000ML IV STA (00:06)
[2025-01-07] MEDS ORDERED: IOHEXOL 350 MG/ML 100ML INFUS..BTL IV ONE (00:48)
--- NOTE | 2025-01-07 02:35 | HMCIMG ---
EXAM: CT Abdomen and Pelvis without and with IV contrast. CLINICAL HISTORY: Pain in the right lower quadrant. TECHNIQUE: Thin collimated axial CT images of the abdomen and pelvis were obtained, with sagittal and coronal reformatted images also submitted. A CT scan is done according to ALARA (As Low As Reasonably Achievable). CONTRAST: Omnipaque 350. COMPARISON: CT scan of the abdomen and pelvis. 12/14/2024. FINDINGS: Unremarkable visualized lung parenchyma. There is no focal abnormality appreciated within the liver, pancreas, spleen, adrenals, or kidneys. Status post cholecystectomy. There is no obvious bowel wall thickening. Bowel loops are normal in caliber without evidence of obstruction or ileus. Mild constipation. The appendix is unremarkable. There is no abnormality within the urinary bladder. Unremarkable reproductive organs. No lymphadenopathy. No free fluid. No pneumoperitoneum. No gross abnormality in the abdominal vessels. There is no acute osseous abnormality. Postsurgical changes in the lumbar spine with pedicle fixation and interbody fusion. Lumbar spondylosis. IMPRESSIONS: No acute process in the abdomen or pelvis. Status post cholecystectomy. Mild constipation. Stable since the prior. No new finding. /[place]
[2025-01-07 03:03] VITALS: BP 135/72; PULSE 89; RESP 18; TEMP 97.6; O2SAT 98
== END 2025-01-07 03:04 | disposition home or self-care (01) ==
LOC: EDH 21:57
DX: R10.31 Right lower quadrant pain (principal); E86.0 Dehydration; Z79.01 Long term (current) use of anticoagulants; Z79.84 Long term (current) use of oral hypoglycemic drugs; Z79.899 Other long term (current) drug therapy; Z88.1 Allergy status to other antibiotic agents; Z88.2 Allergy status to sulfonamides; Z88.5 Allergy status to narcotic agent; Z88.8 Allergy status to other drugs, medicaments and biological substances; Z90.49 Acquired absence of other specified parts of digestive tract
CPT/HCPCS: 99285; 84484; 80053; 83880; 81003; 36415; 93005; 74178; 96360; 96361; J7120; Q9967

== ENCOUNTER 2025-02-20 02:32 | Emergency (ER) | payer OTHER ==
[~2025-02-20] VITALS: Ht 154.9 cm; Wt 83.0 kg
--- NOTE | 2025-02-20 02:42 | ERN ---
ED Note History of Present Illness Stated Complaint: Patient comes in with a chronic abdominal pain she said has been months and months. Denies any hematuria dysuria discharge denies any chestpain shortness of breath Chief Complaint: Abdominal Pain Time Seen by MD: 02:37 Allergies: Coded Allergies: Sulfa (Sulfonamide Antibiotics) (Unverified Allergy, Unknown, 11/30/20) azithromycin (Unverified Allergy, Unknown, 11/30/20) codeine (Unverified Allergy, Unknown, 11/30/20) prednisone (Unverified Allergy, Unknown, 11/30/20) Home Meds Reported Medications Metoprolol Succinate (Metoprolol Succinate) 25 Mg Tab.er.24h, 1 TAB PO DAILY for 30 Days, #30 TAB 0 Refills 12/14/24 Losartan Potassium (Losartan Potassium) 25 Mg Tablet, 1 TAB PO HS for 30 Days, #30 TAB 0 Refills 12/14/24 Hydrochlorothiazide (Hydrochlorothiazide) 12.5 Mg Tablet, 1 TAB PO DAILY for 30 Days, #30 TAB 0 Refills 12/14/24 Rivaroxaban (Xarelto) 20 Mg Tablet, 1 TAB PO DAILY for 30 Days, #30 TAB 0 Refills with food 12/14/24 Metformin HCl (Metformin HCl) 500 Mg Tablet, 1 TAB PO BID for 30 Days, #60 TAB 0 Refills 12/14/24 Rosuvastatin Calcium (Rosuvastatin Calcium) 40 Mg Tablet, 1 TAB PO DAILY 06/02/23 Past Medical History Past Medical History: Diabetes-Type II, Hypertension Additional Past Medical Hx: GALLSTONES, GASTRITIS, recurrent UTIs Surgical History: Cholecystectomy Surgical History Other: BACK SX;FUSION Family History: Negative Social History: Negative, Lives with family History: Not Applicable Review of System Dictation Constitutional: Negative for fever,chills, and weight loss Eyes: Negative for injury, pain,redness, and discharge ENT: Negative for injury,pain or swelling Cardiovascular: Negative for chest pain, palpitations, and edema Respiratory: Negative for shortness of breath, cough, and wheezing, Abdomen/GI: Negative for abdominal pain, nausea, vomiting, diarrhea, and constipation Back: Negative for injury and pain : Negative for injury, bleeding and discharge MS/Extremity: Negative for injury and deformity Skin: Negative for rash, and discoloration Neuro: Negative for headache, weakness, numbness, tingling, and seizure Psych: Negative for suicide ideation, homicidal ideation, and hallucinations Abdominal pain Initial Vital Sign VS Vital Signs Date Time Temp Pulse Resp B/P (MAP) Pulse Ox O2 Delivery O2 Flow Rate FiO2 02/20/25 02:34 97.5 83 20 99 Room Air 02/20/25 03:05 156/75 0 21 Physical Exam Dictation General: awake, alert, NAD Head/Face: Normocephalic, atraumatic Eyes: PERRL, EOMI, vision at baseline ENT: oral cavity clear, TMs clear, no signs of infection Neck: Trachea midline, supple, no nuchal rigidity Cardiovascular: RRR, normal S1/S2, No MRGs, no JVD Respiratory: CTAB, no respiratory distress, No rales or wheezes Abdomen: Soft, non-tender, non-distended, normal bowel sounds, no guarding or rebound. Skin: Warm, dry, normal turgor, no rash MS/Extremity: Pulses equal, no cyanosis, neurovascular intact, FROM Neuro: COAx4, GCS 15, strength 5/5, CN 2-12 intact, normal cerebellar exam, normal gait, Psych: Normal behavior, mood, and affect normal Results (Laboratory/Radiology) Laboratory/Radiology Laboratory Tests Test 02/20/25 03:07 White Blood Count 8.4 K/uL (4.8-10.8) Red Blood Count 3.93 MIL/uL (4.00-5.50) L Hemoglobin 12.0 g/dL (12.0-16.0) Hematocrit 35.7 % (36-48) L Mean Corpuscular Volume 90.8 fL (79-99) Mean Corpuscular Hemoglobin 30.5 pg (27.0-33.0) Mean Corpuscular Hemoglobin Concent 33.6 g/dL (32.0-36.0) Red Cell Distribution Width 13.7 % (11.0-15.5) Platelet Count 200 K/uL (130-400) Mean Platelet Volume 10.6 fL (7.5-10.5) H Immature Granulocyte % (Auto) 0.2 % (0-1) Neutrophils (%) (Auto) 50.2 % (40.0-77.0) Lymphocytes (%) (Auto) 39.1 % (21.0-51.0) Monocytes (%) (Auto) 9.3 % (3.0-13.0) Eosinophils (%) (Auto) 1.0 % (0.0-8.0) Basophils (%) (Auto) 0.2 % (0.0-5.0) Neutrophils # (Auto) 4.2 K/uL (1.8-7.7) Lymphocytes # (Auto) 3.3 K/uL (1.0-4.8) Monocytes # (Auto) 0.8 K/uL (0.1-1.0) Eosinophils # (Auto) 0.08 K/uL (0.00-0.70) Basophils # (Auto) 0.02 K/uL (0.00-0.20) Absolute Immature Granulocyte (auto 0.02 K/uL (0-1) Nucleated Red Blood Cells 0.0 % (0.0-0.19) Troponin I High Sensitivity 5 ng/L (4-50) ED Course ED Course Orders Procedure Category Date Status Time Cbc With Differential LAB 02/20/25 Complete 02:37 Troponin I High LAB 02/20/25 Complete Sensitivity 02:37 Lactated Ringers PHA 02/20/25 Complete 1000ml (Lactated 03:00 Morphine 4mg Syg PHA 02/20/25 Complete (Morphine 4mg Syg) 03:00 Ondansetron 4mg Inj PHA 02/20/25 Complete (Zofran 4mg Inj) 03:00 Ct Abdomen/Pelvis W/O CT 02/20/25 Resulted Contrast 02:37 Comprehensive LAB 02/20/25 Logged Metabolic Panel 04:00 Lipase LAB 02/20/25 Logged 04:00 Current Medications Medications (Trade) Dose Ordered Sig/Walter Route PRN Reason Start Time Stop Time Status Last Admin Dose Admin Lactated Ringer's 1,000 ml @ 0 mls/hr ONCE ONCE IV 02/20/25 03:00 02/20/25 03:03 DC 02/20/25 03:10 Morphine Sulfate (morPHINE 4MG SYG) 4 mg ONCE ONCE IVP 02/20/25 03:00 02/20/25 03:03 DC 02/20/25 03:09 Ondansetron HCl (zoFRAN 4MG INJ) 4 mg ONCE ONCE IVP 02/20/25 03:00 02/20/25 03:03 DC 02/20/25 03:09 Vital Signs Date Time Temp Pulse Resp B/P (MAP) Pulse Ox O2 Delivery O2 Flow Rate FiO2 02/20/25 03:05 98.4 79 19 156/75 98 Room Air* 0 21 02/20/25 02:34 97.5 83 20 99 Room Air Medical Decision Making MDM MDM: Differential diagnosis: Rationale: Tests considered and ordered secondary to shared decision making include: Previous outside records reviewed: Old ER visits. Risk of complication and/or morbidity or mortality of patient management: None Medications-Per medication reconciliation Need for hospitalization: Patient does not meet criteria for hospitalization. Need for emergency major/minor surgery: No There are no social concerns with this patient. Prescription drug management Prescriptions will include symptomatic care Patient's prior external medical records from other ER visits were reviewed by me as indicated. Prior testing and results from previous visits were reviewed. Prior tests were taken into account with medical decision making and resource utilization, independent historian/historians were used to obtain complete medical history. I independently interpreted the test that were performed, results were reviewed by me and considered findings on radiology if ordered. Medical management and examination interpretation discussions were had by me with other qualified healthcare professionals as indicated for the patient's care. DX & DISP Disposition: Discharge Departure Impression: Primary Impression: Abdominal pain Additional Impressions: Chronic pain, Epigastric pain Condition: Stable Referrals: CANDIS ACOSTA MD (PCP) BERNARDO VARNER MD Feb 20, 2025 02:42
[2025-02-20] MEDS: LACTATED RINGERS 1000ML 1,000 ML IV ONE (03:10)
[2025-02-20 03:21] LABS: IMMATURE GRANULOCYTE ABSOLUTE 0.02 K/uL (0-1); NUCLEATED RED BLOOD CELLS 0.0 % (0.0-0.19); PLATELET COUNT (AUTO) 200 K/uL (130-400); RED BLOOD CELL COUNT(AUTO) 3.93 MIL/uL (4.00-5.50); RED CELL DISTRIBUTION WIDTH 13.7 % (11.0-15.5); WHITE BLOOD COUNT (AUTO) 8.4 K/uL (4.8-10.8)
--- NOTE | 2025-02-20 03:25 | NUR ---
BACK FROM CT SCAN
--- NOTE | 2025-02-20 04:37 | HMCIMG ---
EXAM: CT Abdomen and Pelvis without IV contrast CLINICAL HISTORY: Pain. TECHNIQUE: Thin collimated axial CT images of the abdomen and pelvis were obtained with sagittal and coronal reformatted images also submitted. CT scan is done according to ALARA (As Low As Reasonably Achievable). CONTRAST: None. COMPARISON: CT abdomen and pelvis dated 01/07/2025. FINDINGS: The included lungs are clear. Status post cholecystectomy. No focal abnormality within the liver, pancreas, spleen, adrenals, or kidneys. No renal, ureteral, or bladder calculus. Small cystocele with questionable mild chronic cystitis. No bladder calculus or mass is evident. The uterus and ovaries are within normal limits. No obvious bowel wall thickening, dilatation, or obstruction. No acute appendicitis. Mild calcific atherosclerotic disease in the abdominal aorta and its branches. No pathological lymphadenopathy in the abdomen or pelvis. No ascites or pneumoperitoneum. No acute bony abnormality is evident. Degenerative osseous changes. Postsurgical changes at L4-S1 levels. Chronic compression fracture with about 10 to 15% height reduction in the T11 vertebral body. IMPRESSIONS: No acute process in the abdomen or pelvis. Small cystocele with questionable mild chronic cystitis. Compared to the prior study, there is no significant interval change. /[place]
[2025-02-20 04:54] VITALS: BP 158/86; PULSE 74; RESP 18; TEMP 98.6; O2SAT 97
== END 2025-02-20 05:09 | disposition home or self-care (01) ==
LOC: EDH 02:32
DX: G89.29 Other chronic pain (principal); R10.13 Epigastric pain; E11.9 Type 2 diabetes mellitus without complications; I10 Essential (primary) hypertension; Z79.01 Long term (current) use of anticoagulants; Z79.84 Long term (current) use of oral hypoglycemic drugs; Z79.899 Other long term (current) drug therapy; Z87.440 Personal history of urinary (tract) infections; Z88.1 Allergy status to other antibiotic agents; Z88.2 Allergy status to sulfonamides; Z88.5 Allergy status to narcotic agent; Z88.8 Allergy status to other drugs, medicaments and biological substances; Z90.49 Acquired absence of other specified parts of digestive tract
CPT/HCPCS: 99285; 74176; 96374; 96361; 96375; 84484; 85025; 36415; J7120; J2405; J2270

== ENCOUNTER 2025-04-23 13:03 | Emergency (ER) | payer OTHER ==
[~2025-04-23] VITALS: Ht 154.9 cm; Wt 81.6 kg
--- NOTE | 2025-04-23 13:13 | ERN ---
ED Note History of Present Illness Stated Complaint: LOWER BACK PAIN Chief Complaint: Back Pain or Injury Time Seen by MD: 13:05 Dictation: PATIENT IS A 79-YEAR-OLD FEMALE COMING IN TODAY WITH COMPLAINTS OF SEVERE DIFFUSE LUMBOSACRAL PAIN ONSET WAS LAST NIGHT. SHE STATES SHE WAS COOKING AT HER [place] GETTING READY FOR THANKSGIVING TODAY WHEN SHE FELT A SUDDEN ONSET OF THE PAIN THAT HAS GOTTEN PROGRESSIVELY WORSE. SHE DESCRIBES HER LOW BACK PAIN FEELING LIKE IT IS IN A NOTE" SHE DENIES ANY CHANGES IN BOWEL OR BLADDER FUNCTION, NO SADDLE PARESTHESIA AND NO SCIATICA OR RADICULOPATHY. SHE HAS HAD PRIOR BACK SURGERIES TO HER LUMBAR BACK AND THORACIC BACK BY , LAST SURGERY WAS 2017. NO TRAUMA NO FEVER NO CHILLS. NO CHANGE IN URINATION. Allergies: Coded Allergies: Sulfa (Sulfonamide Antibiotics) (Unverified Allergy, Unknown, 11/30/20) azithromycin (Unverified Allergy, Unknown, 11/30/20) codeine (Unverified Allergy, Unknown, 11/30/20) prednisone (Unverified Allergy, Unknown, 11/30/20) Home Meds Reported Medications Metoprolol Succinate (Metoprolol Succinate) 25 Mg Tab.er.24h, 1 TAB PO DAILY for 30 Days, #30 TAB 0 Refills 12/14/24 Losartan Potassium (Losartan Potassium) 25 Mg Tablet, 1 TAB PO HS for 30 Days, #30 TAB 0 Refills 12/14/24 Hydrochlorothiazide (Hydrochlorothiazide) 12.5 Mg Tablet, 1 TAB PO DAILY for 30 Days, #30 TAB 0 Refills 12/14/24 Rivaroxaban (Xarelto) 20 Mg Tablet, 1 TAB PO DAILY for 30 Days, #30 TAB 0 Refills with food 12/14/24 Metformin HCl (Metformin HCl) 500 Mg Tablet, 1 TAB PO BID for 30 Days, #60 TAB 0 Refills 12/14/24 Rosuvastatin Calcium (Rosuvastatin Calcium) 40 Mg Tablet, 1 TAB PO DAILY 06/02/23 Past Medical History Past Medical History: High Cholesterol, Hypertension Additional Past Medical Hx: GALLSTONES, GASTRITIS, recurrent UTIs Surgical History: Other Surgical History Other: BACK SX, LAMINECTOMY Family History: Negative Social History: Negative, Lives with family History: Not Applicable RN Note Reviewed/Agreed w/PFSH: Yes Review of System Dictation CONSTITUTIONAL: NEGATIVE EXCEPT FOR HPI HEAD/FACE: NEGATIVE EXCEPT FOR HPI EENT: NEGATIVE EXCEPT FOR HPI RESPIRATORY: NEGATIVE EXCEPT FOR HPI GASTROINTESTINAL/ABDOMINAL: NEGATIVE EXCEPT FOR HPI GENITOURINARY: NEGATIVE EXCEPT FOR HPI MUSCULOSKELETAL: NEGATIVE EXCEPT FOR HPI SEVERE LOW BACK PAIN INTEGUMENTARY: NEGATIVE EXCEPT FOR HPI NEUROLOGICAL/PSYCH: NEGATIVE EXCEPT FOR HPI HEMATOLOGIC/LYMPHATIC: NEGATIVE EXCEPT FOR HPI ALL SYSTEMS NEGATIVE, EXCEPT NOTED ABOVE. 13 POINT REVIEW OF SYSTEMS ASSESSED AND ALL NEGATIVE EXCEPT FOR ABOVE. Initial Vital Sign VS Vital Signs Date Time Temp Pulse Resp B/P (MAP) Pulse Ox O2 Delivery O2 Flow Rate FiO2 04/23/25 13:04 97.9 90 20 132/84 100 Room Air Physical Exam Dictation VITAL SIGNS REVIEWED GENERAL APPEARANCE: ALERT, ORIENTED X 3, SEVERE ACUTE DISTRESS, WELL DEVELOPED, NOURISHED. OBESE HEAD AND FACE: NON-TRAUMATIC. EYES: PERRL, PINK CONJUNCTIVAS, EYELID NO TRAUMA, ANTERIOR CHAMBER WITH ARCUS SENILIS. EARS: PINNAS INTACT AND NO SIGNS OF TRAUMA OR ERYTHEMA EAR CANALS CLEAR AND NO DISCHARGE TM NO ERYTHEMA NOSE: NO DISCHARGE, NO BLEEDING. OROPHARYNX: MOUTH NORMAL, TONGUE PINK, PHARYNX CLEAR,NO ERYTHEMA, TONSILS NO EXUDATES, NO ABSCESSES NOTED, MUCOUS M EMBRANE MOIST NECK: SUPPLE, NON-TENDER, NO THYROMEGALY, NO MASSES, NO JVD, NO BRUITS BREAST:DEFERRED CHEST:NO TENDERNESS, NO CREPITUS, NO PARADOXICAL MOVEMENT, NO RETRACTIONS LUNGS:CLEAR, WELL-VENTILATED, SYMMETRIC, NO RALES, NO WHEEZING, NO RHONCHI, NO STRIDOR, GOOD BREATH SOUNDS BILATERALLY HEART: REGULAR RATE, REGULAR RHYTHM, NO MURMUR, NO GALLOPS VASCULAR: NO PERIPHERAL EDEMA, ABDOMEN: SOFT, POSITIVE BOWEL SOUNDS, NONDISTENDED, NO GUARDING, NONTENDER, NO REBOUND, NO MASSES NO HEPATOMEGALY, NO SPLENOMEGALY, NO YORK'S SIGN, NO HERNIAS. RECTAL: DEFERRED GENITAL: DEFERRED NEUROLOGICAL: NORMAL SPEECH, MOTOR FUNCTION INTACT, S DIFFUSE LUMBOSACRAL TENDERNESS NO MIDLINE SPINE PAIN OR STEP-OFFS. NEGATIVE STRAIGHT LEG RAISE BILATERALLY 10 DEGREE EXTREMITIES: NONTENDER, FULL RANGE OF MOTION SKIN: COLOR PINK, DRY, NO TURGOR, NO RASH, NO LACERATIONS, NO ABRASIONS, NO CONTUSIONS. LYMPHATIC: DEFERRED Results (Laboratory/Radiology) Labs Reviewed?: Yes ED Course ED Course Orders Procedure Category Date Status Time Saline Lock Iv CPOE 04/23/25 Transmitted 13:08 Diazepam 5 Mg/Ml 2 Ml PHA 04/23/25 Complete Syg (Valium 5 Mg/M 13:30 Cyclobenzaprine Hcl PHA 04/23/25 Complete (Cyclobenzaprine Hcl 13:30 Ketorolac PHA 04/23/25 Complete Tromethamine 30mg/Ml 13:30 Cyclobenzaprine Hcl PHA 04/23/25 Complete (Cyclobenzaprine Hcl 13:24 Ketorolac PHA 04/23/25 Complete Tromethamine 30mg/Ml 13:24 Diazepam 5 Mg/Ml 2 Ml PHA 04/23/25 Complete Syg (Valium 5 Mg/M 13:25 Current Medications Medications (Trade) Dose Ordered Sig/Walter Route PRN Reason Start Time Stop Time Status Last Admin Dose Admin Cyclobenzaprine HCl (Cyclobenzaprine HCl) 10 mg ONCE ONCE PO 04/23/25 13:30 04/23/25 13:19 DC Cyclobenzaprine HCl (Cyclobenzaprine HCl) 10 mg STK-MED ONCE .ROUTE 04/23/25 13:24 04/23/25 13:24 DC 04/23/25 13:30 Diazepam (VALium 5 MG/ML 2 ML SYG) 5 mg ONCE ONCE IVP 04/23/25 13:30 04/23/25 13:19 DC Diazepam (VALium 5 MG/ML 2 ML SYG) 10 mg STK-MED ONCE .ROUTE 04/23/25 13:25 04/23/25 13:25 DC 04/23/25 13:30 Ketorolac Tromethamine (toRADol) 30 mg ONCE ONCE IVP 04/23/25 13:30 04/23/25 13:19 DC Ketorolac Tromethamine (toRADol) 30 mg STK-MED ONCE .ROUTE 04/23/25 13:24 04/23/25 13:24 DC 04/23/25 13:31 Vital Signs Date Time Temp Pulse Resp B/P (MAP) Pulse Ox O2 Delivery O2 Flow Rate FiO2 04/23/25 13:04 97.9 90 20 132/84 100 Room Air 1355/patient states pain is now down to 7/10. She just not wish to stay in the hospital at this time because that is Thanksgiving and wants me home with a family I advised her I was limited to give her some diazepam 5 mg every 8 hours take with Tylenol Arthritis every 8 hours for the next two days Go see as soon as possible or return to the emergency room if any reed es in bowel or bladder function or extension of pain Her sister is at the bedside he will be the designated team cdl driver Medical Decision Making MDM Medical decision-making based on empiric treatment for acute exacerbation chroni c low back pain. No labs or imaging indicated Patient will be discharged home with diazepam 5 mg Q 8 hours to take with Tylenol Arthritis She does not wish to stay in the hospital and we will follow up with her neurosurgeon after the holidays. DX & DISP Disposition: Discharge Departure Impression: Primary Impression: Acute exacerbation of chronic low back pain Condition: Stable Scripts Diazepam (Diazepam) 5 Mg Tablet 1 TAB PO TIDP PRN for SEVERE LOW BACK PAIN, #12 TAB 0 Refills Prov: GALLO TYLER 04/23/25 Additional Instructions: Follow-up with primary care provider in 1 to 2 days. Take medications as directed here in the emergency room. Okay to continue home medications unless otherwise discussed during your visit in the emergency room today. Return to your nearest emergency room if symptoms worsen or if there is no improvement. Call 911 if you need immediate assistance. Take Tylenol or Motrin [id number] as needed and if no contraindications are present. Increase oral hydration. A wound culture or urine culture was ordered here in the emergency room department please follow-up with primary care provider and advise them to get repeat ports from our facility. If you had any Abhay wrap/splints that were applied here, please do not remove them until you see your primary care or specialty. Take Valium and Tylenol Arthritis 650 mg/[id number] every 8 hours for the next two days. Warm compresses to your back three to 4 times a day. No lifting or bending until by your neurosurgeon. Return to the emergency room if any changes in bowel or bladder function or pain gets worse. Do not operate a vehicle and take Valium Referrals: CANDIS ACOSTA MD (PCP) Time of Disposition: 13:56 I have reviewed the case, and I agree with, Diagnosis and Plan GALLO TYLER Apr 23, 2025 13:13
[2025-04-23] MEDS: CYCLOBENZAPRINE HCL 10 MG TABLET ONE (13:30)
[2025-04-23] MEDS ORDERED: CYCLOBENZAPRINE HCL 10 MG TABLET PO ONE (13:30)
[2025-04-23] MEDS ORDERED: DIAZ5TAB4 PO (13:58)
[2025-04-23 14:02] VITALS: BP 131/79; PULSE 88; RESP 18; TEMP 97.9; O2SAT 100
== END 2025-04-23 13:19 | disposition short-term general hospital (02) ==
LOC: EDH 13:03
DX: M54.50 Low back pain, unspecified (principal); G89.29 Other chronic pain; I10 Essential (primary) hypertension; E78.00 Pure hypercholesterolemia, unspecified; Z88.2 Allergy status to sulfonamides; Z88.1 Allergy status to other antibiotic agents; Z88.8 Allergy status to other drugs, medicaments and biological substances; Z88.5 Allergy status to narcotic agent; Z79.899 Other long term (current) drug therapy; Z79.84 Long term (current) use of oral hypoglycemic drugs; Z79.01 Long term (current) use of anticoagulants; Z87.19 Personal history of other diseases of the digestive system; Z87.440 Personal history of urinary (tract) infections; Z98.890 Other specified postprocedural states
CPT/HCPCS: 99285; 96372 ×2; J1885; J3360; 96374; 96375